=== PATIENT | male | born 1940 | race Caucasian/White ===

== ENCOUNTER 2018-04-20 01:25 | Inpatient (IN) ==
[2018-04-20] MEDS ORDERED: Heparin 10,000 UNITS/10 ML Vial (for IV use) IV.PUSH STA (01:51)
--- NOTE | 2018-04-20 01:58 | ED ---
HPI General Chief Complaint: Chest Pain Stated Complaint: Medical Time Seen by Provider: 04/20/18 01:38 Source: patient Mode of arrival: ambulatory Limitations: no limitations History of Present Illness HPI narrative: 78-year-old male came to the emergency room brought by EMS for off-and-on chest pain since 10 PM. Patient describes each episode of pain with a sharp substernal pain radiating to some extent to the left side of the chest and going down both arms. This was associated with diaphoresis the first time. It slowly went away and the second time woke him up from sleep and was the same distribution along with diaphoresis but this time he was also nauseous but could not vomit. He took one Zantac thinking that it could be his reflux. When the pain continued EMS was called. Patient was given 1 sublingual nitro which took the pain down from 10-1. Patient does not have history of coronary artery disease. He has not had any evaluation for coronary artery disease in the past. Vital signs were stable upon arrival. The pain mostly occurs at rest and no aggravating symptoms identified. Related Data Home Medications Medication Instructions Recorded Confirmed allopurinol 200 mg PO DAILY 04/20/18 04/20/18 finasteride 5 mg PO DAILY 04/20/18 04/20/18 timolol-latanoprost(PF) 1 drop OPHTHALMIC (EYE) HS 04/20/18 04/20/18 Allergies Allergy/AdvReac Type Severity Reaction Status Date / Time codeine Allergy Intermediate RASH Verified 04/23/18 19:59 Review of Systems ROS: all other systems reviewed are negative [facility] Medical History Medical History BPH (benign prostatic hyperplasia) (Acute) Gout (Acute) History of kidney cancer (Acute) Surgical History Surgical History History of nephrectomy (Acute) Hx of cataract surgery (Acute) Social History Social History Substance History: No History of Abuse Second Hand Smoke Exposure: No Smoking Status: Former smoker How Often Do You Have a Drink Containing Alcohol: 4 or more times a week Recent Travel in [facility] within the Last 8 Weeks: No Recent Out of Country Travel within the Last 8 Weeks: No Immunization History Tetanus Immunization: <5 Years Exam Narrative Exam Narrative: GENERAL: Awake, alert, anxious, mild distress SKIN: Focused skin assessment warm/dry. HEAD: Atraumatic. Normocephalic. EYES: Pupils equal and round. No scleral icterus. No injection or drainage. ENT: No nasal bleeding or discharge. Mucous membranes pink and moist. NECK: Trachea midline. No JVD. CARDIOVASCULAR: Regular rate and rhythm. No murmur appreciated. RESPIRATORY: No accessory muscle use. Clear to auscultation. Breath sounds equal bilaterally. GASTROINTESTINAL: Abdomen soft, non-tender, nondistended. Hepatic and splenic margins not palpable. MUSCULOSKELETAL: No obvious deformities. No clubbing. No cyanosis. No edema. NEUROLOGICAL: Awake and alert. No obvious cranial nerve deficits. Motor grossly within normal limits. Normal speech. PSYCHIATRIC: Appropriate mood and affect; insight and judgment normal. Course Initial Documented Vital Signs Temperature 98.4 F 04/20/18 01:30 Pulse Rate 58 L 04/20/18 01:30 Blood Pressure 127/72 04/20/18 01:30 Pulse Oximetry 98 04/20/18 01:30 Last Documented Vital Signs Temperature 98.9 F 04/25/18 16:00 Pulse Rate 116 H 04/25/18 19:45 Respiratory Rate 16 04/25/18 19:45 Blood Pressure 128/72 04/25/18 16:00 Pulse Oximetry 92 L 04/25/18 19:45 Critical Care Time Critical Care Time: Yes Total Critical Care Time: 30 Attestation: Aggregate critical care time was 30 minutes. Time to perform other separately billable procedures was not included in the critical care time. My time did not include minutes spent treating any other patients simultaneously or on activities that did not directly contribute to the patient's treatment. The services I provided to this patient were to treat and/or prevent clinically significant deterioration that could result in: ACS, heparin bolus and drip I provided critical care services requiring my management, as noted below: Chart data review, documentation time, medication orders and management, vital sign assessments/reviewing monitor data, ordering and reviewing lab tests, ordering and interpreting/reviewing x-rays and diagnostic studies, care of the patient and discussion of the patient with the admitting physicians. Medical Decision Making MDM Narrative Medical decision making narrative: 1:55 AM the story is very concerning for ACS. Based on the history itself I have started the patient on heparin bolus and drip. I have asked the nurse to repeat EKG if the pain starts to get worse. Patient has been made aware of this fact. He would require admission. Awaiting for blood test results. 2:45 AM blood test results are back and troponin is elevated as expected. Patient will require admission in [facility]. I will discuss the case with the hospitalist. Medical Screen Exam Complete: Yes Emergency Medical Condition: Yes Lab Data Result diagrams: 04/25/18 04:50 04/25/18 04:50 Lab Results 04/20/18 04/20/18 04/20/18 Range/Units 01:50 01:50 01:50 WBC 6.7 (4.0-11.0) th/mm3 RBC 5.22 (4.50-5.90) mil/mm3 Hgb 15.9 (13.0-17.0) gm/dL Hct 46.4 (39.0-51.0) % MCV 88.9 (80.0-100.0) fL MCH 30.4 (27.0-34.0) pg MCHC 34.2 (32.0-36.0) % RDW 14.0 (11.6-17.2) % Plt Count 190 (150-450) th/mm3 MPV 8.3 (7.0-11.0) fL Neut % (Auto) 63.9 (16.0-70.0) % Lymph % (Auto) 24.1 (9.0-44.0) % [place] % (Auto) 9.0 H (0.0-8.0) % Eos % (Auto) 2.3 (0.0-4.0) % Baso % (Auto) 0.7 (0.0-2.0) % Neut # (Auto) 4.3 (1.8-7.7) th/mm3 Lymph # (Auto) 1.6 (1.0-4.8) th/mm3 [place] # (Auto) 0.6 (0.0-0.9) th/mm3 Eos # (Auto) 0.2 (0.0-0.4) th/mm3 Baso # (Auto) 0.0 (0.0-0.2) th/mm3 WBC Differential . Differential Comment Auto diff final PT 10.7 (9.8-11.6) sec INR 1.1 Ratio APTT 25.5 (23.4-31.7) sec Sodium 136 (136-145) meq/L Potassium 4.3 (3.5-5.1) meq/L Chloride 101 (98-107) meq/L Carbon Dioxide 25.3 (21.0-32.0) meq/L Anion Gap 10 (5-15) meq/L BUN 22 H (7-18) mg/dL Creatinine 1.25 (0.60-1.30) mg/dL Estimated GFR 56 L (>89) mL/min POC Glucose (68-110) mg/dl Random Glucose 128 H (74-106) mg/dL Hemoglobin A1c (4.3-6.0) % Calcium 8.6 (8.5-10.1) mg/dL Magnesium (1.5-2.5) mg/dL Total Bilirubin 0.4 (0.2-1.0) mg/dL AST 21 (15-37) U/L ALT 28 (12-78) U/L Alkaline Phosphatase 82 (45-117) U/L Troponin I 0.11 H (0.02-0.05) ng/mL Total Protein 7.9 (6.4-8.2) g/dL Albumin 3.8 (3.4-5.0) g/dL Triglycerides (42-150) mg/dL Cholesterol (120-200) mg/dL LDL Cholesterol, Calc (0-99) mg/dL HDL Cholesterol (40.0-60.0) mg/dL Cholesterol/HDL Ratio Ratio Urine Color (Yellw/Straw) Urine Clarity (Clear) Urine pH (5.0-8.5) Ur Specific [place] (1.002-1.035) Urine Protein (Neg-Trace) mg/dL Urine Glucose (UA) (Negative) mg/dL Urine Ketones (Negative) mg/dL Urine Occult Blood (Negative) Urine Nitrate (Negative) Urine Bilirubin (Negative) Urine Urobilinogen (Less than 2) mg/dL Ur Leukocyte Esterase (Negative) Urine RBC (0-3) /hpf Urine WBC (0-5) /hpf Urine Mucus (Occasional) /lpf Micro UA Comment Ur Microscopic Review Urine Culture Comments Nasal Screen MRSA (PCR) (Negative) Blood Type Antibody Screen MTS Gel Crossmatch Bld Prod Order Comment 04/20/18 04/20/18 04/20/18 Range/Units 04:00 08:54 08:54 WBC (4.0-11.0) th/mm3 RBC (4.50-5.90) mil/mm3 Hgb (13.0-17.0) gm/dL Hct (39.0-51.0) % MCV (80.0-100.0) fL MCH (27.0-34.0) pg MCHC (32.0-36.0) % RDW (11.6-17.2) % Plt Count (150-450) th/mm3 MPV (7.0-11.0) fL Neut % (Auto) (16.0-70.0) % Lymph % (Auto) (9.0-44.0) % [place] % (Auto) (0.0-8.0) % Eos % (Auto) (0.0-4.0) % Baso % (Auto) (0.0-2.0) % Neut # (Auto) (1.8-7.7) th/mm3 Lymph # (Auto) (1.0-4.8) th/mm3 [place] # (Auto) (0.0-0.9) th/mm3 Eos # (Auto) (0.0-0.4) th/mm3 Baso # (Auto) (0.0-0.2) th/mm3 WBC Differential Differential Comment PT (9.8-11.6) sec INR Ratio APTT 52.7 H D (23.4-31.7) sec Sodium (136-145) meq/L Potassium (3.5-5.1) meq/L Chloride (98-107) meq/L Carbon Dioxide (21.0-32.0) meq/L Anion Gap (5-15) meq/L BUN (7-18) mg/dL Creatinine (0.60-1.30) mg/dL Estimated GFR (>89) mL/min POC Glucose (68-110) mg/dl Random Glucose (74-106) mg/dL Hemoglobin A1c (4.3-6.0) % Calcium (8.5-10.1) mg/dL Magnesium (1.5-2.5) mg/dL Total Bilirubin (0.2-1.0) mg/dL AST (15-37) U/L ALT (12-78) U/L Alkaline Phosphatase (45-117) U/L Troponin I 0.67 H* (0.02-0.05) ng/mL Total Protein (6.4-8.2) g/dL Albumin (3.4-5.0) g/dL Triglycerides 117 (42-150) mg/dL Cholesterol 225 H (120-200) mg/dL LDL Cholesterol, Calc 147 H (0-99) mg/dL HDL Cholesterol 55.1 (40.0-60.0) mg/dL Cholesterol/HDL Ratio 4.08 Ratio Urine Color (Yellw/Straw) Urine Clarity (Clear) Urine pH (5.0-8.5) Ur Specific [place] (1.002-1.035) Urine Protein (Neg-Trace) mg/dL Urine Glucose (UA) (Negative) mg/dL Urine Ketones (Negative) mg/dL Urine Occult Blood (Negative) Urine Nitrate (Negative) Urine Bilirubin (Negative) Urine Urobilinogen (Less than 2) mg/dL Ur Leukocyte Esterase (Negative) Urine RBC (0-3) /hpf Urine WBC (0-5) /hpf Urine Mucus (Occasional) /lpf Micro UA Comment Ur Microscopic Review Urine Culture Comments Nasal Screen MRSA (PCR) Not detected (Negative) Blood Type Antibody Screen MTS Gel Crossmatch Bld Prod Order Comment 04/20/18 04/21/18 04/21/18 Range/Units 15:52 05:23 05:23 WBC 6.5 (4.0-11.0) th/mm3 RBC 4.79 (4.50-5.90) mil/mm3 Hgb 14.5 (13.0-17.0) gm/dL Hct 43.8 (39.0-51.0) % MCV 91.5 (80.0-100.0) fL MCH 30.3 (27.0-34.0) pg MCHC 33.1 (32.0-36.0) % RDW 14.4 (11.6-17.2) % Plt Count 166 (150-450) th/mm3 MPV 8.0 (7.0-11.0) fL Neut % (Auto) 50.7 (16.0-70.0) % Lymph % (Auto) 35.7 (9.0-44.0) % [place] % (Auto) 10.6 H (0.0-8.0) % Eos % (Auto) 2.5 (0.0-4.0) % Baso % (Auto) 0.5 (0.0-2.0) % Neut # (Auto) 3.3 (1.8-7.7) th/mm3 Lymph # (Auto) 2.3 (1.0-4.8) th/mm3 [place] # (Auto) 0.7 (0.0-0.9) th/mm3 Eos # (Auto) 0.2 (0.0-0.4) th/mm3 Baso # (Auto) 0.0 (0.0-0.2) th/mm3 WBC Differential . Differential Comment Auto diff final PT (9.8-11.6) sec INR Ratio APTT 45.5 H 50.9 H (23.4-31.7) sec Sodium (136-145) meq/L Potassium (3.5-5.1) meq/L Chloride (98-107) meq/L Carbon Dioxide (21.0-32.0) meq/L Anion Gap (5-15) meq/L BUN (7-18) mg/dL Creatinine (0.60-1.30) mg/dL Estimated GFR (>89) mL/min POC Glucose (68-110) mg/dl Random Glucose (74-106) mg/dL Hemoglobin A1c (4.3-6.0) % Calcium (8.5-10.1) mg/dL Magnesium (1.5-2.5) mg/dL Total Bilirubin (0.2-1.0) mg/dL AST (15-37) U/L ALT (12-78) U/L Alkaline Phosphatase (45-117) U/L Troponin I (0.02-0.05) ng/mL Total Protein (6.4-8.2) g/dL Albumin (3.4-5.0) g/dL Triglycerides (42-150) mg/dL Cholesterol (120-200) mg/dL LDL Cholesterol, Calc (0-99) mg/dL HDL Cholesterol (40.0-60.0) mg/dL Cholesterol/HDL Ratio Ratio Urine Color (Yellw/Straw) Urine Clarity (Clear) Urine pH (5.0-8.5) Ur Specific [place] (1.002-1.035) Urine Protein (Neg-Trace) mg/dL Urine Glucose (UA) (Negative) mg/dL Urine Ketones (Negative) mg/dL Urine Occult Blood (Negative) Urine Nitrate (Negative) Urine Bilirubin (Negative) Urine Urobilinogen (Less than 2) mg/dL Ur Leukocyte Esterase (Negative) Urine RBC (0-3) /hpf Urine WBC (0-5) /hpf Urine Mucus (Occasional) /lpf Micro UA Comment Ur Microscopic Review Urine Culture Comments Nasal Screen MRSA (PCR) (Negative) Blood Type Antibody Screen MTS Gel Crossmatch Bld Prod Order Comment 04/21/18 04/21/18 04/21/18 Range/Units 05:23 14:25 14:40 WBC (4.0-11.0) th/mm3 RBC (4.50-5.90) mil/mm3 Hgb (13.0-17.0) gm/dL Hct (39.0-51.0) % MCV (80.0-100.0) fL MCH (27.0-34.0) pg MCHC (32.0-36.0) % RDW (11.6-17.2) % Plt Count (150-450) th/mm3 MPV (7.0-11.0) fL Neut % (Auto) (16.0-70.0) % Lymph % (Auto) (9.0-44.0) % [place] % (Auto) (0.0-8.0) % Eos % (Auto) (0.0-4.0) % Baso % (Auto) (0.0-2.0) % Neut # (Auto) (1.8-7.7) th/mm3 Lymph # (Auto) (1.0-4.8) th/mm3 [place] # (Auto) (0.0-0.9) th/mm3 Eos # (Auto) (0.0-0.4) th/mm3 Baso # (Auto) (0.0-0.2) th/mm3 WBC Differential Differential Comment PT (9.8-11.6) sec INR Ratio APTT (23.4-31.7) sec Sodium 142 (136-145) meq/L Potassium 4.1 (3.5-5.1) meq/L Chloride 109 H D (98-107) meq/L Carbon Dioxide 24.8 (21.0-32.0) meq/L Anion Gap 8 (5-15) meq/L BUN 18 (7-18) mg/dL Creatinine 1.33 H (0.60-1.30) mg/dL Estimated GFR 52 L (>89) mL/min POC Glucose (68-110) mg/dl Random Glucose 96 (74-106) mg/dL Hemoglobin A1c (4.3-6.0) % Calcium 8.6 (8.5-10.1) mg/dL Magnesium (1.5-2.5) mg/dL Total Bilirubin 0.4 (0.2-1.0) mg/dL AST 18 (15-37) U/L ALT 24 (12-78) U/L Alkaline Phosphatase 63 (45-117) U/L Troponin I (0.02-0.05) ng/mL Total Protein 6.6 D (6.4-8.2) g/dL Albumin 3.2 L D (3.4-5.0) g/dL Triglycerides (42-150) mg/dL Cholesterol (120-200) mg/dL LDL Cholesterol, Calc (0-99) mg/dL HDL Cholesterol (40.0-60.0) mg/dL Cholesterol/HDL Ratio Ratio Urine Color Straw (Yellw/Straw) Urine Clarity Clear (Clear) Urine pH 6.0 (5.0-8.5) Ur Specific [place] 1.011 (1.002-1.035) Urine Protein Negative (Neg-Trace) mg/dL Urine Glucose (UA) Negative (Negative) mg/dL Urine Ketones Negative (Negative) mg/dL Urine Occult Blood Negative (Negative) Urine Nitrate Negative (Negative) Urine Bilirubin Negative (Negative) Urine Urobilinogen Less than 2 (Less than 2) mg/dL Ur Leukocyte Esterase Negative (Negative) Urine RBC Less than 1 (0-3) /hpf Urine WBC Less than 1 (0-5) /hpf Urine Mucus Few H (Occasional) /lpf Micro UA Comment Culture not ind Ur Microscopic Review Not Reportable Urine Culture Comments Culture not ind Nasal Screen MRSA (PCR) Not detected (Negative) Blood Type Antibody Screen MTS Gel Crossmatch Bld Prod Order Comment 04/22/18 04/22/18 04/22/18 Range/Units 05:37 05:37 05:37 WBC 6.3 (4.0-11.0) th/mm3 RBC 4.76 (4.50-5.90) mil/mm3 Hgb 14.6 (13.0-17.0) gm/dL Hct 42.4 (39.0-51.0) % MCV 89.1 (80.0-100.0) fL MCH 30.8 (27.0-34.0) pg MCHC 34.5 (32.0-36.0) % RDW 14.4 (11.6-17.2) % Plt Count 163 (150-450) th/mm3 MPV 8.1 (7.0-11.0) fL Neut % (Auto) (16.0-70.0) % Lymph % (Auto) (9.0-44.0) % [place] % (Auto) (0.0-8.0) % Eos % (Auto) (0.0-4.0) % Baso % (Auto) (0.0-2.0) % Neut # (Auto) (1.8-7.7) th/mm3 Lymph # (Auto) (1.0-4.8) th/mm3 [place] # (Auto) (0.0-0.9) th/mm3 Eos # (Auto) (0.0-0.4) th/mm3 Baso # (Auto) (0.0-0.2) th/mm3 WBC Differential Differential Comment PT (9.8-11.6) sec INR Ratio APTT (23.4-31.7) sec Sodium 139 (136-145) meq/L Potassium 3.8 (3.5-5.1) meq/L Chloride 107 (98-107) meq/L Carbon Dioxide 22.9 (21.0-32.0) meq/L Anion Gap 9 (5-15) meq/L BUN 19 H (7-18) mg/dL Creatinine 1.27 (0.60-1.30) mg/dL Estimated GFR 55 L (>89) mL/min POC Glucose (68-110) mg/dl Random Glucose 92 (74-106) mg/dL Hemoglobin A1c 5.9 (4.3-6.0) % Calcium 8.6 (8.5-10.1) mg/dL Magnesium (1.5-2.5) mg/dL Total Bilirubin (0.2-1.0) mg/dL AST (15-37) U/L ALT (12-78) U/L Alkaline Phosphatase (45-117) U/L Troponin I (0.02-0.05) ng/mL Total Protein (6.4-8.2) g/dL Albumin (3.4-5.0) g/dL Triglycerides (42-150) mg/dL Cholesterol (120-200) mg/dL LDL Cholesterol, Calc (0-99) mg/dL HDL Cholesterol (40.0-60.0) mg/dL Cholesterol/HDL Ratio Ratio Urine Color (Yellw/Straw) Urine Clarity (Clear) Urine pH (5.0-8.5) Ur Specific [place] (1.002-1.035) Urine Protein (Neg-Trace) mg/dL Urine Glucose (UA) (Negative) mg/dL Urine Ketones (Negative) mg/dL Urine Occult Blood (Negative) Urine Nitrate (Negative) Urine Bilirubin (Negative) Urine Urobilinogen (Less than 2) mg/dL Ur Leukocyte Esterase (Negative) Urine RBC (0-3) /hpf Urine WBC (0-5) /hpf Urine Mucus (Occasional) /lpf Micro UA Comment Ur Microscopic Review Urine Culture Comments Nasal Screen MRSA (PCR) (Negative) Blood Type Antibody Screen MTS Gel Crossmatch Bld Prod Order Comment 04/22/18 04/22/18 04/23/18 Range/Units 05:37 06:00 08:28 WBC 5.8 (4.0-11.0) th/mm3 RBC 5.28 (4.50-5.90) mil/mm3 Hgb 16.1 (13.0-17.0) gm/dL Hct 47.9 (39.0-51.0) % MCV 90.7 (80.0-100.0) fL MCH 30.4 (27.0-34.0) pg MCHC 33.5 (32.0-36.0) % RDW 14.5 (11.6-17.2) % Plt Count 186 (150-450) th/mm3 MPV 8.1 (7.0-11.0) fL Neut % (Auto) (16.0-70.0) % Lymph % (Auto) (9.0-44.0) % [place] % (Auto) (0.0-8.0) % Eos % (Auto) (0.0-4.0) % Baso % (Auto) (0.0-2.0) % Neut # (Auto) (1.8-7.7) th/mm3 Lymph # (Auto) (1.0-4.8) th/mm3 [place] # (Auto) (0.0-0.9) th/mm3 Eos # (Auto) (0.0-0.4) th/mm3 Baso # (Auto) (0.0-0.2) th/mm3 WBC Differential Differential Comment PT 10.8 (9.8-11.6) sec INR 1.1 Ratio APTT 25.7 D (23.4-31.7) sec Sodium (136-145) meq/L Potassium (3.5-5.1) meq/L Chloride (98-107) meq/L Carbon Dioxide (21.0-32.0) meq/L Anion Gap (5-15) meq/L BUN (7-18) mg/dL Creatinine (0.60-1.30) mg/dL Estimated GFR (>89) mL/min POC Glucose (68-110) mg/dl Random Glucose (74-106) mg/dL Hemoglobin A1c (4.3-6.0) % Calcium (8.5-10.1) mg/dL Magnesium (1.5-2.5) mg/dL Total Bilirubin (0.2-1.0) mg/dL AST (15-37) U/L ALT (12-78) U/L Alkaline Phosphatase (45-117) U/L Troponin I (0.02-0.05) ng/mL Total Protein (6.4-8.2) g/dL Albumin (3.4-5.0) g/dL Triglycerides (42-150) mg/dL Cholesterol (120-200) mg/dL LDL Cholesterol, Calc (0-99) mg/dL HDL Cholesterol (40.0-60.0) mg/dL Cholesterol/HDL Ratio Ratio Urine Color (Yellw/Straw) Urine Clarity (Clear) Urine pH (5.0-8.5) Ur Specific [place] (1.002-1.035) Urine Protein (Neg-Trace) mg/dL Urine Glucose (UA) (Negative) mg/dL Urine Ketones (Negative) mg/dL Urine Occult Blood (Negative) Urine Nitrate (Negative) Urine Bilirubin (Negative) Urine Urobilinogen (Less than 2) mg/dL Ur Leukocyte Esterase (Negative) Urine RBC (0-3) /hpf Urine WBC (0-5) /hpf Urine Mucus (Occasional) /lpf Micro UA Comment Ur Microscopic Review Urine Culture Comments Nasal Screen MRSA (PCR) (Negative) Blood Type B Positive Antibody Screen Negative MTS Gel Crossmatch See Detail Bld Prod Order Comment 04/23/18 04/23/18 04/23/18 Range/Units 19:16 20:21 21:47 WBC (4.0-11.0) th/mm3 RBC (4.50-5.90) mil/mm3 Hgb (13.0-17.0) gm/dL Hct (39.0-51.0) % MCV (80.0-100.0) fL MCH (27.0-34.0) pg MCHC (32.0-36.0) % RDW (11.6-17.2) % Plt Count (150-450) th/mm3 MPV (7.0-11.0) fL Neut % (Auto) (16.0-70.0) % Lymph % (Auto) (9.0-44.0) % [place] % (Auto) (0.0-8.0) % Eos % (Auto) (0.0-4.0) % Baso % (Auto) (0.0-2.0) % Neut # (Auto) (1.8-7.7) th/mm3 Lymph # (Auto) (1.0-4.8) th/mm3 [place] # (Auto) (0.0-0.9) th/mm3 Eos # (Auto) (0.0-0.4) th/mm3 Baso # (Auto) (0.0-0.2) th/mm3 WBC Differential Differential Comment PT (9.8-11.6) sec INR Ratio APTT (23.4-31.7) sec Sodium (136-145) meq/L Potassium (3.5-5.1) meq/L Chloride (98-107) meq/L Carbon Dioxide (21.0-32.0) meq/L Anion Gap (5-15) meq/L BUN (7-18) mg/dL Creatinine (0.60-1.30) mg/dL Estimated GFR (>89) mL/min POC Glucose 114 H 115 H 89 (68-110) mg/dl Random Glucose (74-106) mg/dL Hemoglobin A1c (4.3-6.0) % Calcium (8.5-10.1) mg/dL Magnesium (1.5-2.5) mg/dL Total Bilirubin (0.2-1.0) mg/dL AST (15-37) U/L ALT (12-78) U/L Alkaline Phosphatase (45-117) U/L Troponin I (0.02-0.05) ng/mL Total Protein (6.4-8.2) g/dL Albumin (3.4-5.0) g/dL Triglycerides (42-150) mg/dL Cholesterol (120-200) mg/dL LDL Cholesterol, Calc (0-99) mg/dL HDL Cholesterol (40.0-60.0) mg/dL Cholesterol/HDL Ratio Ratio Urine Color (Yellw/Straw) Urine Clarity (Clear) Urine pH (5.0-8.5) Ur Specific [place] (1.002-1.035) Urine Protein (Neg-Trace) mg/dL Urine Glucose (UA) (Negative) mg/dL Urine Ketones (Negative) mg/dL Urine Occult Blood (Negative) Urine Nitrate (Negative) Urine Bilirubin (Negative) Urine Urobilinogen (Less than 2) mg/dL Ur Leukocyte Esterase (Negative) Urine RBC (0-3) /hpf Urine WBC (0-5) /hpf Urine Mucus (Occasional) /lpf Micro UA Comment Ur Microscopic Review Urine Culture Comments Nasal Screen MRSA (PCR) (Negative) Blood Type Antibody Screen MTS Gel Crossmatch Bld Prod Order Comment 04/23/18 04/24/18 04/24/18 Range/Units 22:55 00:06 02:06 WBC (4.0-11.0) th/mm3 RBC (4.50-5.90) mil/mm3 Hgb (13.0-17.0) gm/dL Hct (39.0-51.0) % MCV (80.0-100.0) fL MCH (27.0-34.0) pg MCHC (32.0-36.0) % RDW (11.6-17.2) % Plt Count (150-450) th/mm3 MPV (7.0-11.0) fL Neut % (Auto) (16.0-70.0) % Lymph % (Auto) (9.0-44.0) % [place] % (Auto) (0.0-8.0) % Eos % (Auto) (0.0-4.0) % Baso % (Auto) (0.0-2.0) % Neut # (Auto) (1.8-7.7) th/mm3 Lymph # (Auto) (1.0-4.8) th/mm3 [place] # (Auto) (0.0-0.9) th/mm3 Eos # (Auto) (0.0-0.4) th/mm3 Baso # (Auto) (0.0-0.2) th/mm3 WBC Differential Differential Comment PT (9.8-11.6) sec INR Ratio APTT (23.4-31.7) sec Sodium (136-145) meq/L Potassium (3.5-5.1) meq/L Chloride (98-107) meq/L Carbon Dioxide (21.0-32.0) meq/L Anion Gap (5-15) meq/L BUN (7-18) mg/dL Creatinine (0.60-1.30) mg/dL Estimated GFR (>89) mL/min POC Glucose 119 H 111 H 110 (68-110) mg/dl Random Glucose (74-106) mg/dL Hemoglobin A1c (4.3-6.0) % Calcium (8.5-10.1) mg/dL Magnesium (1.5-2.5) mg/dL Total Bilirubin (0.2-1.0) mg/dL AST (15-37) U/L ALT (12-78) U/L Alkaline Phosphatase (45-117) U/L Troponin I (0.02-0.05) ng/mL Total Protein (6.4-8.2) g/dL Albumin (3.4-5.0) g/dL Triglycerides (42-150) mg/dL Cholesterol (120-200) mg/dL LDL Cholesterol, Calc (0-99) mg/dL HDL Cholesterol (40.0-60.0) mg/dL Cholesterol/HDL Ratio Ratio Urine Color (Yellw/Straw) Urine Clarity (Clear) Urine pH (5.0-8.5) Ur Specific [place] (1.002-1.035) Urine Protein (Neg-Trace) mg/dL Urine Glucose (UA) (Negative) mg/dL Urine Ketones (Negative) mg/dL Urine Occult Blood (Negative) Urine Nitrate (Negative) Urine Bilirubin (Negative) Urine Urobilinogen (Less than 2) mg/dL Ur Leukocyte Esterase (Negative) Urine RBC (0-3) /hpf Urine WBC (0-5) /hpf Urine Mucus (Occasional) /lpf Micro UA Comment Ur Microscopic Review Urine Culture Comments Nasal Screen MRSA (PCR) (Negative) Blood Type Antibody Screen MTS Gel Crossmatch Bld Prod Order Comment 04/24/18 04/24/18 04/24/18 Range/Units 04:09 04:09 04:09 WBC 10.0 D (4.0-11.0) th/mm3 RBC 4.59 (4.50-5.90) mil/mm3 Hgb 13.6 D (13.0-17.0) gm/dL Hct 41.4 (39.0-51.0) % MCV 90.2 (80.0-100.0) fL MCH 29.7 (27.0-34.0) pg MCHC 32.9 (32.0-36.0) % RDW 14.4 (11.6-17.2) % Plt Count 159 (150-450) th/mm3 MPV 8.5 (7.0-11.0) fL Neut % (Auto) (16.0-70.0) % Lymph % (Auto) (9.0-44.0) % [place] % (Auto) (0.0-8.0) % Eos % (Auto) (0.0-4.0) % Baso % (Auto) (0.0-2.0) % Neut # (Auto) (1.8-7.7) th/mm3 Lymph # (Auto) (1.0-4.8) th/mm3 [place] # (Auto) (0.0-0.9) th/mm3 Eos # (Auto) (0.0-0.4) th/mm3 Baso # (Auto) (0.0-0.2) th/mm3 WBC Differential Differential Comment PT (9.8-11.6) sec INR Ratio APTT (23.4-31.7) sec Sodium 140 (136-145) meq/L Potassium 4.5 (3.5-5.1) meq/L Chloride 106 (98-107) meq/L Carbon Dioxide 24.8 (21.0-32.0) meq/L Anion Gap 9 (5-15) meq/L BUN 18 (7-18) mg/dL Creatinine 1.17 (0.60-1.30) mg/dL Estimated GFR 60 L (>89) mL/min POC Glucose 105 (68-110) mg/dl Random Glucose 107 H (74-106) mg/dL Hemoglobin A1c (4.3-6.0) % Calcium 8.9 (8.5-10.1) mg/dL Magnesium 2.2 (1.5-2.5) mg/dL Total Bilirubin (0.2-1.0) mg/dL AST (15-37) U/L ALT (12-78) U/L Alkaline Phosphatase (45-117) U/L Troponin I (0.02-0.05) ng/mL Total Protein (6.4-8.2) g/dL Albumin (3.4-5.0) g/dL Triglycerides (42-150) mg/dL Cholesterol (120-200) mg/dL LDL Cholesterol, Calc (0-99) mg/dL HDL Cholesterol (40.0-60.0) mg/dL Cholesterol/HDL Ratio Ratio Urine Color (Yellw/Straw) Urine Clarity (Clear) Urine pH (5.0-8.5) Ur Specific [place] (1.002-1.035) Urine Protein (Neg-Trace) mg/dL Urine Glucose (UA) (Negative) mg/dL Urine Ketones (Negative) mg/dL Urine Occult Blood (Negative) Urine Nitrate (Negative) Urine Bilirubin (Negative) Urine Urobilinogen (Less than 2) mg/dL Ur Leukocyte Esterase (Negative) Urine RBC (0-3) /hpf Urine WBC (0-5) /hpf Urine Mucus (Occasional) /lpf Micro UA Comment Ur Microscopic Review Urine Culture Comments Nasal Screen MRSA (PCR) (Negative) Blood Type Antibody Screen MTS Gel Crossmatch Bld Prod Order Comment 04/24/18 04/24/18 04/24/18 Range/Units 05:49 08:04 10:57 WBC (4.0-11.0) th/mm3 RBC (4.50-5.90) mil/mm3 Hgb (13.0-17.0) gm/dL Hct (39.0-51.0) % MCV (80.0-100.0) fL MCH (27.0-34.0) pg MCHC (32.0-36.0) % RDW (11.6-17.2) % Plt Count (150-450) th/mm3 MPV (7.0-11.0) fL Neut % (Auto) (16.0-70.0) % Lymph % (Auto) (9.0-44.0) % [place] % (Auto) (0.0-8.0) % Eos % (Auto) (0.0-4.0) % Baso % (Auto) (0.0-2.0) % Neut # (Auto) (1.8-7.7) th/mm3 Lymph # (Auto) (1.0-4.8) th/mm3 [place] # (Auto) (0.0-0.9) th/mm3 Eos # (Auto) (0.0-0.4) th/mm3 Baso # (Auto) (0.0-0.2) th/mm3 WBC Differential Differential Comment PT (9.8-11.6) sec INR Ratio APTT (23.4-31.7) sec Sodium (136-145) meq/L Potassium (3.5-5.1) meq/L Chloride (98-107) meq/L Carbon Dioxide (21.0-32.0) meq/L Anion Gap (5-15) meq/L BUN (7-18) mg/dL Creatinine (0.60-1.30) mg/dL Estimated GFR (>89) mL/min POC Glucose 106 107 142 H (68-110) mg/dl Random Glucose (74-106) mg/dL Hemoglobin A1c (4.3-6.0) % Calcium (8.5-10.1) mg/dL Magnesium (1.5-2.5) mg/dL Total Bilirubin (0.2-1.0) mg/dL AST (15-37) U/L ALT (12-78) U/L Alkaline Phosphatase (45-117) U/L Troponin I (0.02-0.05) ng/mL Total Protein (6.4-8.2) g/dL Albumin (3.4-5.0) g/dL Triglycerides (42-150) mg/dL Cholesterol (120-200) mg/dL LDL Cholesterol, Calc (0-99) mg/dL HDL Cholesterol (40.0-60.0) mg/dL Cholesterol/HDL Ratio Ratio Urine Color (Yellw/Straw) Urine Clarity (Clear) Urine pH (5.0-8.5) Ur Specific [place] (1.002-1.035) Urine Protein (Neg-Trace) mg/dL Urine Glucose (UA) (Negative) mg/dL Urine Ketones (Negative) mg/dL Urine Occult Blood (Negative) Urine Nitrate (Negative) Urine Bilirubin (Negative) Urine Urobilinogen (Less than 2) mg/dL Ur Leukocyte Esterase (Negative) Urine RBC (0-3) /hpf Urine WBC (0-5) /hpf Urine Mucus (Occasional) /lpf Micro UA Comment Ur Microscopic Review Urine Culture Comments Nasal Screen MRSA (PCR) (Negative) Blood Type Antibody Screen MTS Gel Crossmatch Bld Prod Order Comment 04/24/18 04/24/18 04/24/18 Range/Units 16:00 19:18 21:41 WBC (4.0-11.0) th/mm3 RBC (4.50-5.90) mil/mm3 Hgb (13.0-17.0) gm/dL Hct (39.0-51.0) % MCV (80.0-100.0) fL MCH (27.0-34.0) pg MCHC (32.0-36.0) % RDW (11.6-17.2) % Plt Count (150-450) th/mm3 MPV (7.0-11.0) fL Neut % (Auto) (16.0-70.0) % Lymph % (Auto) (9.0-44.0) % [place] % (Auto) (0.0-8.0) % Eos % (Auto) (0.0-4.0) % Baso % (Auto) (0.0-2.0) % Neut # (Auto) (1.8-7.7) th/mm3 Lymph # (Auto) (1.0-4.8) th/mm3 [place] # (Auto) (0.0-0.9) th/mm3 Eos # (Auto) (0.0-0.4) th/mm3 Baso # (Auto) (0.0-0.2) th/mm3 WBC Differential Differential Comment PT (9.8-11.6) sec INR Ratio APTT (23.4-31.7) sec Sodium (136-145) meq/L Potassium (3.5-5.1) meq/L Chloride (98-107) meq/L Carbon Dioxide (21.0-32.0) meq/L Anion Gap (5-15) meq/L BUN (7-18) mg/dL Creatinine (0.60-1.30) mg/dL Estimated GFR (>89) mL/min POC Glucose 130 H 153 H 115 H (68-110) mg/dl Random Glucose (74-106) mg/dL Hemoglobin A1c (4.3-6.0) % Calcium (8.5-10.1) mg/dL Magnesium (1.5-2.5) mg/dL Total Bilirubin (0.2-1.0) mg/dL AST (15-37) U/L ALT (12-78) U/L Alkaline Phosphatase (45-117) U/L Troponin I (0.02-0.05) ng/mL Total Protein (6.4-8.2) g/dL Albumin (3.4-5.0) g/dL Triglycerides (42-150) mg/dL Cholesterol (120-200) mg/dL LDL Cholesterol, Calc (0-99) mg/dL HDL Cholesterol (40.0-60.0) mg/dL Cholesterol/HDL Ratio Ratio Urine Color (Yellw/Straw) Urine Clarity (Clear) Urine pH (5.0-8.5) Ur Specific [place] (1.002-1.035) Urine Protein (Neg-Trace) mg/dL Urine Glucose (UA) (Negative) mg/dL Urine Ketones (Negative) mg/dL Urine Occult Blood (Negative) Urine Nitrate (Negative) Urine Bilirubin (Negative) Urine Urobilinogen (Less than 2) mg/dL Ur Leukocyte Esterase (Negative) Urine RBC (0-3) /hpf Urine WBC (0-5) /hpf Urine Mucus (Occasional) /lpf Micro UA Comment Ur Microscopic Review Urine Culture Comments Nasal Screen MRSA (PCR) (Negative) Blood Type Antibody Screen MTS Gel Crossmatch Bld Prod Order Comment 04/25/18 04/25/18 04/25/18 Range/Units 01:19 04:50 04:50 WBC 12.1 H (4.0-11.0) th/mm3 RBC 4.50 (4.50-5.90) mil/mm3 Hgb 13.7 (13.0-17.0) gm/dL Hct 41.2 (39.0-51.0) % MCV 91.4 (80.0-100.0) fL MCH 30.4 (27.0-34.0) pg MCHC 33.3 (32.0-36.0) % RDW 14.6 (11.6-17.2) % Plt Count 164 (150-450) th/mm3 MPV 8.1 (7.0-11.0) fL Neut % (Auto) 75.7 H (16.0-70.0) % Lymph % (Auto) 10.3 (9.0-44.0) % [place] % (Auto) 12.9 H (0.0-8.0) % Eos % (Auto) 0.8 (0.0-4.0) % Baso % (Auto) 0.3 (0.0-2.0) % Neut # (Auto) 9.2 H (1.8-7.7) th/mm3 Lymph # (Auto) 1.3 (1.0-4.8) th/mm3 [place] # (Auto) 1.6 H (0.0-0.9) th/mm3 Eos # (Auto) 0.1 (0.0-0.4) th/mm3 Baso # (Auto) 0.0 (0.0-0.2) th/mm3 WBC Differential . Differential Comment Auto diff final PT (9.8-11.6) sec INR Ratio APTT (23.4-31.7) sec Sodium 134 L (136-145) meq/L Potassium 4.3 (3.5-5.1) meq/L Chloride 100 (98-107) meq/L Carbon Dioxide 24.8 (21.0-32.0) meq/L Anion Gap 9 (5-15) meq/L BUN 20 H (7-18) mg/dL Creatinine 1.54 H (0.60-1.30) mg/dL Estimated GFR 44 L (>89) mL/min POC Glucose 117 H (68-110) mg/dl Random Glucose 127 H (74-106) mg/dL Hemoglobin A1c (4.3-6.0) % Calcium 8.8 (8.5-10.1) mg/dL Magnesium 1.9 (1.5-2.5) mg/dL Total Bilirubin (0.2-1.0) mg/dL AST (15-37) U/L ALT (12-78) U/L Alkaline Phosphatase (45-117) U/L Troponin I (0.02-0.05) ng/mL Total Protein (6.4-8.2) g/dL Albumin (3.4-5.0) g/dL Triglycerides (42-150) mg/dL Cholesterol (120-200) mg/dL LDL Cholesterol, Calc (0-99) mg/dL HDL Cholesterol (40.0-60.0) mg/dL Cholesterol/HDL Ratio Ratio Urine Color (Yellw/Straw) Urine Clarity (Clear) Urine pH (5.0-8.5) Ur Specific [place] (1.002-1.035) Urine Protein (Neg-Trace) mg/dL Urine Glucose (UA) (Negative) mg/dL Urine Ketones (Negative) mg/dL Urine Occult Blood (Negative) Urine Nitrate (Negative) Urine Bilirubin (Negative) Urine Urobilinogen (Less than 2) mg/dL Ur Leukocyte Esterase (Negative) Urine RBC (0-3) /hpf Urine WBC (0-5) /hpf Urine Mucus (Occasional) /lpf Micro UA Comment Ur Microscopic Review Urine Culture Comments Nasal Screen MRSA (PCR) (Negative) Blood Type Antibody Screen MTS Gel Crossmatch Bld Prod Order Comment 04/25/18 04/25/18 04/25/18 Range/Units 04:50 08:25 12:47 WBC (4.0-11.0) th/mm3 RBC (4.50-5.90) mil/mm3 Hgb (13.0-17.0) gm/dL Hct (39.0-51.0) % MCV (80.0-100.0) fL MCH (27.0-34.0) pg MCHC (32.0-36.0) % RDW (11.6-17.2) % Plt Count (150-450) th/mm3 MPV (7.0-11.0) fL Neut % (Auto) (16.0-70.0) % Lymph % (Auto) (9.0-44.0) % [place] % (Auto) (0.0-8.0) % Eos % (Auto) (0.0-4.0) % Baso % (Auto) (0.0-2.0) % Neut # (Auto) (1.8-7.7) th/mm3 Lymph # (Auto) (1.0-4.8) th/mm3 [place] # (Auto) (0.0-0.9) th/mm3 Eos # (Auto) (0.0-0.4) th/mm3 Baso # (Auto) (0.0-0.2) th/mm3 WBC Differential Differential Comment PT (9.8-11.6) sec INR Ratio APTT (23.4-31.7) sec Sodium (136-145) meq/L Potassium (3.5-5.1) meq/L Chloride (98-107) meq/L Carbon Dioxide (21.0-32.0) meq/L Anion Gap (5-15) meq/L BUN (7-18) mg/dL Creatinine (0.60-1.30) mg/dL Estimated GFR (>89) mL/min POC Glucose 122 H 154 H 145 H (68-110) mg/dl Random Glucose (74-106) mg/dL Hemoglobin A1c (4.3-6.0) % Calcium (8.5-10.1) mg/dL Magnesium (1.5-2.5) mg/dL Total Bilirubin (0.2-1.0) mg/dL AST (15-37) U/L ALT (12-78) U/L Alkaline Phosphatase (45-117) U/L Troponin I (0.02-0.05) ng/mL Total Protein (6.4-8.2) g/dL Albumin (3.4-5.0) g/dL Triglycerides (42-150) mg/dL Cholesterol (120-200) mg/dL LDL Cholesterol, Calc (0-99) mg/dL HDL Cholesterol (40.0-60.0) mg/dL Cholesterol/HDL Ratio Ratio Urine Color (Yellw/Straw) Urine Clarity (Clear) Urine pH (5.0-8.5) Ur Specific [place] (1.002-1.035) Urine Protein (Neg-Trace) mg/dL Urine Glucose (UA) (Negative) mg/dL Urine Ketones (Negative) mg/dL Urine Occult Blood (Negative) Urine Nitrate (Negative) Urine Bilirubin (Negative) Urine Urobilinogen (Less than 2) mg/dL Ur Leukocyte Esterase (Negative) Urine RBC (0-3) /hpf Urine WBC (0-5) /hpf Urine Mucus (Occasional) /lpf Micro UA Comment Ur Microscopic Review Urine Culture Comments Nasal Screen MRSA (PCR) (Negative) Blood Type Antibody Screen MTS Gel Crossmatch Bld Prod Order Comment 04/25/18 04/25/18 Range/Units 17:12 21:18 WBC (4.0-11.0) th/mm3 RBC (4.50-5.90) mil/mm3 Hgb (13.0-17.0) gm/dL Hct (39.0-51.0) % MCV (80.0-100.0) fL MCH (27.0-34.0) pg MCHC (32.0-36.0) % RDW (11.6-17.2) % Plt Count (150-450) th/mm3 MPV (7.0-11.0) fL Neut % (Auto) (16.0-70.0) % Lymph % (Auto) (9.0-44.0) % [place] % (Auto) (0.0-8.0) % Eos % (Auto) (0.0-4.0) % Baso % (Auto) (0.0-2.0) % Neut # (Auto) (1.8-7.7) th/mm3 Lymph # (Auto) (1.0-4.8) th/mm3 [place] # (Auto) (0.0-0.9) th/mm3 Eos # (Auto) (0.0-0.4) th/mm3 Baso # (Auto) (0.0-0.2) th/mm3 WBC Differential Differential Comment PT (9.8-11.6) sec INR Ratio APTT (23.4-31.7) sec Sodium (136-145) meq/L Potassium (3.5-5.1) meq/L Chloride (98-107) meq/L Carbon Dioxide (21.0-32.0) meq/L Anion Gap (5-15) meq/L BUN (7-18) mg/dL Creatinine (0.60-1.30) mg/dL Estimated GFR (>89) mL/min POC Glucose 206 H 108 (68-110) mg/dl Random Glucose (74-106) mg/dL Hemoglobin A1c (4.3-6.0) % Calcium (8.5-10.1) mg/dL Magnesium (1.5-2.5) mg/dL Total Bilirubin (0.2-1.0) mg/dL AST (15-37) U/L ALT (12-78) U/L Alkaline Phosphatase (45-117) U/L Troponin I (0.02-0.05) ng/mL Total Protein (6.4-8.2) g/dL Albumin (3.4-5.0) g/dL Triglycerides (42-150) mg/dL Cholesterol (120-200) mg/dL LDL Cholesterol, Calc (0-99) mg/dL HDL Cholesterol (40.0-60.0) mg/dL Cholesterol/HDL Ratio Ratio Urine Color (Yellw/Straw) Urine Clarity (Clear) Urine pH (5.0-8.5) Ur Specific [place] (1.002-1.035) Urine Protein (Neg-Trace) mg/dL Urine Glucose (UA) (Negative) mg/dL Urine Ketones (Negative) mg/dL Urine Occult Blood (Negative) Urine Nitrate (Negative) Urine Bilirubin (Negative) Urine Urobilinogen (Less than 2) mg/dL Ur Leukocyte Esterase (Negative) Urine RBC (0-3) /hpf Urine WBC (0-5) /hpf Urine Mucus (Occasional) /lpf Micro UA Comment Ur Microscopic Review Urine Culture Comments Nasal Screen MRSA (PCR) (Negative) Blood Type Antibody Screen MTS Gel Crossmatch Bld Prod Order Comment Imaging Data Radiologist's impression: Chest X-Ray 04/20/18 01:38 CONCLUSION: Negative examination. Carotid Doppler Study 04/21/18 13:10 CONCLUSION: 1. Right Internal Carotid Artery: Findings indicate <50% stenosis. 2. Left Internal Carotid Artery: Findings indicate <50% stenosis. Lower Extremity Ultrasound 04/21/18 13:10 CONCLUSION: 1. Venous mapping study as described. Venous Doppler Study 04/21/18 13:10 CONCLUSION: 1. The study is negative for bilateral lower extremity deep venous thrombosis. Chest X-Ray 04/23/18 17:38 CONCLUSION: 1. Postoperative median sternotomy and coronary artery bypass graft operation. 2. Mild bibasilar atelectasis. 3. Mediastinal drain, left chest tube, nasogastric tube and endotracheal tube positions as above. No pneumothorax or significant joint effusion. Chest X-Ray 04/24/18 05:00 CONCLUSION: Endotracheal tube and nasogastric tube no longer seen. Persistent mild bilateral atelectasis. Chest X-Ray 04/25/18 00:00 CONCLUSION: There is no significant failure Minimally increasing parenchymal changes left base probably atelectasis. ECG Data Attestation: I personally reviewed and interpreted this ECG as follows: Interpretation: Twelve-lead EKG was reviewed by me. This rhythm, normal axis, anterior lateral T wave inversion and less than [address] of anterior ST elevation. No reciprocal depressions noticed. Heart rate of 60 bpm. Discharge Plan Discharge Disposition Patient Disposition: ED Admit(ED Internal Use Only) Discharge Order Discharge Orders: ED Use Only Admit Order (Routine); Ordered 04/20/18 Ordered By: Angelito Britton Physicians Team ED Provider: Angelito Britton Primary Care Provider: Primary Care Physici,No Attending Provider: Gregory Kirk Other Providers: Ulises Milner Sohit K Status ED Status: Left Department Discharge Information Discharge Date/Time: 04/20/18 04:27
[2018-04-20 02:07] LABS: Baso % (Auto) 0.7 % (0.0-2.0); Eos # (Auto) 0.2 th/mm3 (0.0-0.4); Eos % (Auto) 2.3 % (0.0-4.0); Hematocrit 46.4 % (39.0-51.0); Hemoglobin 15.9 gm/dL (13.0-17.0); Lymph # (Auto) 1.6 th/mm3 (1.0-4.8); Lymph % (Auto) 24.1 % (9.0-44.0); Mean Corpuscular HGB Conc 34.2 % (32.0-36.0); Mean Corpuscular Hemoglobin 30.4 pg (27.0-34.0); Mean Corpuscular Volume 88.9 fL (80.0-100.0); Mean Platelet Volume 8.3 fL (7.0-11.0); Mono # (Auto) 0.6 th/mm3 (0.0-0.9); Neut # (Auto) 4.3 th/mm3 (1.8-7.7); Neut % (Auto) 63.9 % (16.0-70.0); Platelet Count 190 th/mm3 (150-450); Red Blood Count 5.22 mil/mm3 (4.50-5.90); White Blood Count 6.7 th/mm3 (4.0-11.0)
[2018-04-20 02:15] LABS: Activated Partial Thrombo Time 25.5 sec (23.4-31.7); INR 1.1 Ratio; Prothrombin Time 10.7 sec (9.8-11.6)
[2018-04-20 02:20] LABS: Alanine Aminotransferase 28 U/L (12-78); Albumin 3.8 g/dL (3.4-5.0); Anion Gap 10 meq/L (5-15); Aspartate Aminotransferase 21 U/L (15-37); Blood Urea Nitrogen 22 mg/dL (7-18); Calcium 8.6 mg/dL (8.5-10.1); Carbon Dioxide 25.3 meq/L (21.0-32.0); Chloride 101 meq/L (98-107); Glomerular Filtration Rate 56 mL/min (>89); Glucose,Random 128 mg/dL (74-106); Potassium 4.3 meq/L (3.5-5.1); Sodium 136 meq/L (136-145)
[2018-04-20] MEDS: Heparin Drip 25,000 UNIT/250 ML BAG IV.CONT PRN (02:21)
[2018-04-20 02:23] LABS: Alkaline Phosphatase 82 U/L (45-117); Total Protein 7.9 g/dL (6.4-8.2); Troponin I 0.11 ng/mL (0.02-0.05)
--- NOTE | 2018-04-20 02:45 | XR ---
EXAM DATE: 04/20/2018 2:04 AM EST AGE/SEX: 78 years / Male INDICATIONS: Chest pain that woke him up while sleeping today. CLINICAL DATA: This is the patient's initial encounter. Patient reports that signs and symptoms have been present for 1 day and indicates a pain score of 8/10. MEDICAL/SURGICAL HISTORY: . Kidney cancer. BPH. Gout. . Nephrectomy. Cataract surgery. COMPARISON: . FINDINGS: A single AP view of the chest demonstrates the lungs to be symmetrically aerated without evidence of mass, infiltrate or effusion. The cardiomediastinal contours are unremarkable. Osseous structures a re intact. CONCLUSION: Negative examination. Electronically signed by: Moses Mcgregor MD 04/20/2018 2:44 AM EST
[2018-04-20] MEDS ORDERED: Morphine Sulfate Inj 2 MG/ML Vial IV.PUSH PRN (03:15)
[2018-04-20] MEDS ORDERED: Bisacodyl 10 MG Supp RECTAL PRN (03:16)
--- NOTE | 2018-04-20 04:10 | P.HPIM ---
History of Present Illness Primary Care Physician: No Primary Care Physician History of Present Illness: This is a 78-year-old male with a PMH of Renal Cell CA s/p Nephrectomy, BPH and Gout who was brought to the ER by EMS for c/o chest pain starting earlier tonight. Pt and kirt from [place], pt is active at baseline, plays Tennis regularly with no complaints, however has noted increased SOB while playing Tennis over the last 1wk, symptoms improve after rest. Tonight, had acute onset of chest pain, constant, sharp, 10/10, symptoms woke him from sleep. S/p NTG by EMS w/ significant improvement, currently chest pain free. On arrival, BP 127/72, HR 58, O2 sat 98% on 2L NC, Afebrile. CBC unremarkable. INR 1.1. BUN 22, GFR 56. Troponin 0.11. CXR with no acute findings. Currently on Heparin gtt. - Diagnosis (1) NSTEMI (non-ST elevated myocardial infarction) (2) Dehydration Inpatient Certification: I certify that the inpatient services were ordered in accordance with Medicare regulations governing the order. This includes certification that hospital inpatient services are reasonable and necessary and in the case of services not specified as inpatient-only under 42 CFR 419.22(n), that they are appropriately provided as inpatient services in accordance to with the 2-midnight benchmark under 43 CFR 412.3(e) Estimated Total Length of Stay (Days): 2 Plans for Post Hospital Care: Not yet determined Review of Systems PAST FAMILY HISTORY: Reviewed. No h/o DM or CAD All other systems reviewed negative except as stated in HPI PMFSH - History History Provided By: Patient - Medical History Medical History: Medical History (Last Reviewed 04/20/18 @ 01:55 by Angelito Britton MD) BPH (benign prostatic hyperplasia) Gout History of kidney cancer - Surgical History Surgical History: Surgical History (Last Reviewed 04/20/18 @ 01:55 by Angelito Britton MD) History of nephrectomy Hx of cataract surgery - Tobacco History Second Hand Smoke Exposure: No Smoking Status: Never smoker - Alcohol History How Often Do You Have a Drink Containing Alcohol: 2 to 3 times a week - Substance Use History Substance History: No History of Abuse - Travel History Recent Travel in the [place] Within the Last 8 Weeks: No Recent Travel Out of the Country Within the Last 8 Weeks: No - Immunization History Tetanus Immunization: <5 Years Medications and Allergies Active Medications: Active Medications Al Hydroxide/Mg Hydroxide (Milk Of Magnesia Liq) 30 ml PO Q12H PRN PRN Reason: Mild Constipation Bisacodyl (Dulcolax Supp) 10 mg RECTAL DAILY PRN PRN Reason: SEVERE CONSITIPATION Finasteride (Proscar) 5 mg PO DAILY [facility] Heparin Sodium/Dextrose (Heparin/D5w 25,000 U/250 Ml) 25,000 unit in 250 mls @ 0 mls/hr IV.CONT TITRATE PRN; Protocol PRN Reason: Per Protocol Last Admin: 04/20/18 02:21 Dose: 900 units/hr, 9 mls/hr Sodium Chloride (Ns Inj) 1,000 mls @ 100 mls/hr IV.CONT .Q10H TRAY Lactulose (Lactulose Liq) 30 ml PO DAILY PRN PRN Reason: SEVERE CONSITIPATION Latanoprost (Xalatan 0.005% Opth Drops) 1 drop EACH EYE HS [facility] Metoprolol Tartrate (Lopressor) 25 mg PO BID [facility] Morphine Sulfate (Morphine Inj) 2 mg IV.PUSH Q4H PRN PRN Reason: PAIN 6-10 Nitroglycerin (Nitro-Bid 2% Oint) 0.5 inch TOPICAL Q6HR PRN PRN Reason: CHEST PAIN Ondansetron HCl (Zofran Inj) 4 mg IV.PUSH Q6H PRN PRN Reason: NAUSEA OR VOMITING Pravastatin Sodium (Pravachol) 40 mg PO DAILY [facility] Senna/Docusate Sodium (Shala-Colace) 1 tab PO BID [facility] Sennosides (Senokot) 17.2 mg PO Q12H PRN PRN Reason: Moderate Constipation Sodium Chloride (Ns Flush) 2 ml IV.FLUSH UNSCH PRN PRN Reason: FLUSH AFTER USING IV ACCESS Sodium Chloride (Ns Flush) 2 ml IV.FLUSH BID TRAY Sodium Chloride (Ns Flush) 2 ml IV.FLUSH PRN PRN PRN Reason: FLUSH AFTER USING IV ACCESS Timolol Maleate (Timoptic 0.5% Drops) 1 drops EACH EYE HS [facility] Allergies Allergy/AdvReac Type Severity Reaction Status Date / Time acetaminophen Allergy Intermediate RASH Unverified 12/26/16 01:49 codeine Allergy Intermediate RASH Unverified 12/26/16 01:49 aspirin AdvReac Urinary Verified 04/20/18 01:36 Freq (Inc/Dec) Home Medications Medication Instructions Recorded Confirmed Type allopurinol 200 mg PO DAILY 04/20/18 04/20/18 History finasteride 5 mg PO DAILY 04/20/18 04/20/18 History timolol-latanoprost(PF) 1 drop OPHTHALMIC (EYE) HS 04/20/18 04/20/18 History Exam Vital signs: Vital Signs 04/20/18 01:30 04/20/18 01:38 04/20/18 02:01 Temperature 98.4 F Pulse Rate 58 L 56 L Blood Pressure 127/72 Pulse Oximetry 98 97 96 Intake & Output 04/19/18 04/19/18 04/20/18 06:59 18:59 06:59 Weight 74.843 kg Narrative: PE: GENERAL: Extremely pleasant elderly male in no acute distress. at bedside. SKIN: Focused skin assessment warm and dry. HEENT: PERRLA, EOMI. No scleral icterus or conjunctival pallor. No lid lag or facial droop. CARDIOVASCULAR: Regular rate and rhythm. No obvious murmurs to auscultation. No chest tenderness to palpation. RESPIRATORY: No obvious rhonchi or wheezing. Clear to auscultation. Breath sounds equal bilaterally. GASTROINTESTINAL: Abdomen soft, non-tender, nondistended. BS normal. MUSCULOSKELETAL: Extremities without clubbing, cyanosis, or edema. No obvious deformities. NEUROLOGICAL: Awake, alert and oriented x4. No focal neurologic deficits. Moving both upper and lower extremities spontaneously. PSYCHIATRIC: Appropriate mood and affect. Insight and judgment normal. Results - Labs CBC & Chem 7: 04/20/18 01:50 04/20/18 01:50 Labs: Short CBC 04/20/18 Range/Units 01:50 WBC 6.7 (4.0-11.0) th/mm3 Hgb 15.9 (13.0-17.0) gm/dL Hct 46.4 (39.0-51.0) % Plt Count 190 (150-450) th/mm3 [facility] 04/20/18 01:50 Sodium 136 Potassium 4.3 Chloride 101 Carbon Dioxide 25.3 BUN 22 H Creatinine 1.25 Calcium 8.6 Cardiac Enzymes 04/20/18 Range/Units 01:50 Troponin I 0.11 H (0.02-0.05) ng/mL Liver Function 04/20/18 Range/Units 01:50 Total Bilirubin 0.4 (0.2-1.0) mg/dL AST 21 (15-37) U/L ALT 28 (12-78) U/L Alkaline Phosphatase 82 (45-117) U/L Albumin 3.8 (3.4-5.0) g/dL - Imaging Impressions Chest X-Ray 04/20/18 01:38 CONCLUSION: Negative examination. Caprini VTE Risk Assessment Caprini VTE Risk Assessment: No/Low Risk (score <= 1) Caprini Risk Assessment Model: Point Value = 1 Point Value = 2 Point Value = 3 Point Value = 5 Age 41-60 Minor surgery BMI > 25 kg/m2 Swollen legs Varicose veins or History of unexplained or recurrent spontaneous Oral contraceptives or hormone replacement Sepsis (< 1 month) Serious lung disease, including pneumonia (< 1 month) Abnormal pulmonary function Acute myocardial infarction Congestive heart failure (< 1 month) History of inflammatory bowel disease Medical patient at bed rest Age 61-74 Arthroscopic surgery Major open surgery (> 45 min) Laparoscopic surgery (> 45 min) Malignancy Confined to bed (> 72 hours) Immobilizing plaster cast Central venous access Age >= 75 History of VTE Family history of VTE Factor V Leiden Prothrombin 50570H Lupus anticoagulant Anticardiolipin antibodies Elevated serum homocysteine Heparin-induced thrombocytopenia Other congenital or acquired thrombophilia Stroke (< 1 month) Elective arthroplasty Hip, pelvis, or leg fracture Acute spinal cord injury (< 1 month) Prophylaxis Regimen: Total Risk Factor Score Risk Level Prophylaxis Regimen 0-1 Low Early ambulation 2 Moderate Order ONE of the following: *Sequential Compression Device (SCD) *Heparin 5000 units SQ BID 3-4 Higher Order ONE of the following medications: *Heparin 5000 units SQ TID *Enoxaparin/Lovenox 40 mg SQ daily (WT < 150 kg, CrCl > 30 mL/min) *Enoxaparin/Lovenox 30 mg SQ daily (WT < 150 kg, CrCl > 10-29 mL/min) *Enoxaparin/Lovenox 30 mg SQ BID (WT < 150 kg, CrCl > 30 mL/min) AND/OR *Sequential Compression Device (SCD) 5 or more Highest Order ONE of the following medications: *Heparin 5000 units SQ TID (Preferred with Epidurals) *Enoxaparin/Lovenox 40 mg SQ daily (WT < 150 kg, CrCl > 30 mL/min) *Enoxaparin/Lovenox 30 mg SQ daily (WT < 150 kg, CrCl > 10-29 mL/min) *Enoxaparin/Lovenox 30 mg SQ BID (WT < 150 kg, CrCl > 30 mL/min) AND *Sequential Compression Device (SCD) Assessment and Plan - Assessment (1) NSTEMI (non-ST elevated myocardial infarction) Code(s): I21.4 - Non-ST elevation (NSTEMI) myocardial infarction Status: Acute (2) Dehydration Code(s): E86.0 - Dehydration Status: Acute - Plan A/P: 1. NSTEMI: acute onset of chest pain, recent episodes of SOB w/ exertion, trop 0.11, EKG w/ no acute ischemia. Currently on Heparin gtt, admit to [facility], telemetry, check serial cardiac enzymes for trend, Consult Cardiology for further eval/intervention. No ASA due to ALLERGY, no B-gianna due to bradycardia. Check lipid profile. NTG/Morphine prn. 2. Dehydration: BUN 22, GFR 56, no previous labs for comparison, creatinine 1.25, h/o Nephrectomy for renal cell ca, monitor I/O, IVF for hydration, monitor renal function closely. 3. DVT Prophylaxis: Heparin gtt 4. Social work for d/c planning as needed. 5. Case discussed w/ ER physician at length, labs/records/imaging reviewed by me
[2018-04-20] MEDS: Sod Chloride 0.9% Inj 1,000 ML IV.CONT SCH ×2 (05:46→17:34)
--- NOTE | 2018-04-20 07:31 | P.PNIM ---
Subjective Interval history: f/u; NSTEMI in no acute distress. has mild chest discomfort but says that he could get some sleep last night. no other complaints. Physical Exam Vital signs: Vital Signs 04/20/18 01:30 04/20/18 01:38 04/20/18 02:01 Temperature 98.4 F Pulse Rate 58 L 56 L Respiratory Rate Blood Pressure 127/72 Pulse Oximetry 98 97 96 04/20/18 04:09 04/20/18 04:10 04/20/18 05:00 Temperature Pulse Rate 64 67 56 L Respiratory Rate 18 19 21 Blood Pressure 173/85 H Pulse Oximetry 92 L 04/20/18 05:47 04/20/18 06:00 Temperature Pulse Rate 64 59 L Respiratory Rate 28 H 18 Blood Pressure 131/65 123/62 Pulse Oximetry 97 95 Intake & Output 04/19/18 04/20/18 04/20/18 18:59 06:59 18:59 Output Total 600 / 600 Balance -600 / -600 Weight 74.5 kg Output: Urine 600 / 600 Other: Weight On Admission 74.5 kg - Constitutional no acute distress - Routine Respiratory Exam Present: CTA bilaterally - Routine Cardiovascular Exam Present: RRR - Routine Abdominal Exam Present: soft - Routine Extremities Exam Comments: no pedal edema. - Routine Neurological Exam Present: alert, oriented X3 Results - Labs CBC & Chem 7: 04/20/18 01:50 04/20/18 01:50 Laboratory Results - last 24 hr 04/20/18 04/20/18 04/20/18 01:50 01:50 01:50 WBC 6.7 RBC 5.22 Hgb 15.9 Hct 46.4 MCV 88.9 MCH 30.4 MCHC 34.2 RDW 14.0 Plt Count 190 MPV 8.3 Neut % (Auto) 63.9 Lymph % (Auto) 24.1 [place] % (Auto) 9.0 H Eos % (Auto) 2.3 Baso % (Auto) 0.7 Neut # (Auto) 4.3 Lymph # (Auto) 1.6 [place] # (Auto) 0.6 Eos # (Auto) 0.2 Baso # (Auto) 0.0 WBC Differential . Differential Comment Auto diff final PT 10.7 INR 1.1 APTT 25.5 Sodium 136 Potassium 4.3 Chloride 101 Carbon Dioxide 25.3 Anion Gap 10 BUN 22 H Creatinine 1.25 Estimated GFR 56 L Random Glucose 128 H Calcium 8.6 Total Bilirubin 0.4 AST 21 ALT 28 Alkaline Phosphatase 82 Troponin I 0.11 H Total Protein 7.9 Albumin 3.8 Nasal Screen MRSA (PCR) 04/20/18 04:00 WBC RBC Hgb Hct MCV MCH MCHC RDW Plt Count MPV Neut % (Auto) Lymph % (Auto) [place] % (Auto) Eos % (Auto) Baso % (Auto) Neut # (Auto) Lymph # (Auto) [place] # (Auto) Eos # (Auto) Baso # (Auto) WBC Differential Differential Comment PT INR APTT Sodium Potassium Chloride Carbon Dioxide Anion Gap BUN Creatinine Estimated GFR Random Glucose Calcium Total Bilirubin AST ALT Alkaline Phosphatase Troponin I Total Protein Albumin Nasal Screen MRSA (PCR) Not detected - Imaging Impressions Chest X-Ray 04/20/18 01:38 CONCLUSION: Negative examination. Assessment and Plan - Assessment (1) NSTEMI (non-ST elevated myocardial infarction) Code(s): I21.4 - Non-ST elevation (NSTEMI) myocardial infarction Status: Acute (2) Dehydration Code(s): E86.0 - Dehydration Status: Acute - Plan 1. NSTEMI: check serial cardiac enzymes for trend, Consulted Cardiology for further eval/intervention. No ASA due to ALLERGY, on gianna and statin. 2. Dehydration: BUN 22, GFR 56, no previous labs for comparison, creatinine 1.25, h/o Nephrectomy for renal cell ca, monitor I/O, IVF for hydration, monitor renal function closely. 3. DVT Prophylaxis: Heparin gtt Discharge Planning: home; pending cardiac w/u.
[2018-04-20 09:33] LABS: Chol/HDL Ratio 4.08 Ratio; HDL Cholesterol 55.1 mg/dL (40.0-60.0)
[2018-04-20] MEDS: Finasteride 5 MG Tablet PO SCH (09:34)
[2018-04-20] MEDS: Senna/Docusate Sodium 8.6/50 MG Tablet PO SCH ×2 (09:34→20:21)
[2018-04-20] MEDS: Metoprolol Tartrate 25 MG Tablet PO SCH ×2 (09:34→20:20)
[2018-04-20 09:38] LABS: Troponin I 0.67 ng/mL (0.02-0.05)
--- NOTE | 2018-04-20 09:55 | ECG ---
Date Performed: 04/20/2018 Time Performed: 01:47:25 PTAGE: 78 years EKG: SINUS BRADYCARDIA ST DEVIATION AND MODERATE T-WAVE ABNORMALITY, CONSIDER ANTEROLATERAL ISCH EMIA ABNORMAL ECG Since the PREVIOUS TRACING , no significant change noted PREVIOUS TRACIN04/20/2018 01.33 DOCTOR: Ad Valentine Interpretating Date/Time 04/20/2018 09:55:09
--- NOTE | 2018-04-20 09:56 | ECG ---
Date Performed: 04/20/2018 Time Performed: 02:52:12 PTAGE: 78 years EKG: SINUS BRADYCARDIA WITH OCCASIONAL VENTRICULAR PREMATURE COMPLEXES ST DEVIATION AND MODERATE T-WAVE ABNORMALITY, CONSIDER ANTEROLATERAL ISCHEMIA ABNORMAL ECG Since the PREVIOUS TRACING , no significant change noted PREVIOUS TRACIN04/20/2018 01.47 DOCTOR: Ad Valentine Interpretating Date/Time 04/20/2018 09:55:24
--- NOTE | 2018-04-20 10:33 | ECG ---
Date Performed: 04/20/2018 Time Performed: 01:33:54 PTAGE: 78 years EKG: NORMAL Sinus rhythm ST DEVIATION AND MODERATE T-WAVE ABNORMALITY, CONSIDER ANTEROLATERAL ISCHEMIA ABNORMAL ECG Compared to PREVIOUS TRACING , new anterior T-wave abnormality, suggesting anterior ischemia. Alterna tively, changes could be from LVH. Clinical correlation strongly recommended. PREVIOUS TRACIN 017 08.03.16 DOCTOR: Ad Valentine Interpretating Date/Time 04/20/2018 10:32:10
--- NOTE | 2018-04-20 11:28 | P.CONCA ---
History of Present Illness Primary Care Provider: No Primary Care Physician History of Present Illness: 78-year-old male with gout, BPH, s/p nephrectomy who presented for chest pain. The patient is normally very active and plays tennis 3 times a week. He played tennis 3 times last week and did not notice any chest pain or shortness of breath. Last night he was awoken from sleep with sharp midsternal chest discomfort that lasted approximately 1 hour before resolving. Patient states he went back to bed and about 30 minutes later the sharp chest discomfort returned and was more severe and radiating down both arms so he called 911. He reports the chest discomfort was relieved with nitroglycerin and has not recurred overnight. Troponin 0.11->0.67. EKG shows NSR, no ST elevation or depression, and no arrhythmias. No significant T-wave inversions. Shows NSR with T wave inversions [id number]. Asymptomatic currently. Review of Systems All other systems reviewed negative except as stated in HPI [facility] - History History Provided By: Patient, Medical Record - Medical History Medical History: Medical History (Last Reviewed 04/20/18 @ 11:24 by CARO Perez) BPH (benign prostatic hyperplasia) Gout History of kidney cancer - Surgical History Surgical History: Surgical History (Last Reviewed 04/20/18 @ 11:24 by CARO Perez) History of nephrectomy Hx of cataract surgery - Tobacco History Second Hand Smoke Exposure: No Smoking Status: Former smoker - Alcohol History How Often Do You Have a Drink Containing Alcohol: 4 or more times a week - Substance Use History Substance History: No History of Abuse - Travel History Recent Travel in the [place] Within the Last 8 Weeks: No Recent Travel Out of the Country Within the Last 8 Weeks: No - Immunization History Tetanus Immunization: <5 Years Medications and Allergies Active Medications: Active Medications Al Hydroxide/Mg Hydroxide (Milk Of Magngennaro Liq) 30 ml PO Q12H PRN PRN Reason: Mild Constipation Aspirin (Ecotrin) 81 mg PO DAILY [facility] Atorvastatin Calcium (Lipitor) 40 mg PO HS [facility] Bisacodyl (Dulcolax Supp) 10 mg RECTAL DAILY PRN PRN Reason: SEVERE CONSITIPATION Chlorhexidine Gluconate (Chlorhexidine 2% Cloth) 3 pack TOPICAL DAILY@0400 [facility] Stop: 04/26/18 03:59 Chlorhexidine Gluconate (Chlorhexidine 2% Cloth) 3 pack TOPICAL DAILY@0400 PRN PRN Reason: Extra cloth needed Stop: 04/26/18 03:59 Finasteride (Proscar) 5 mg PO DAILY [facility] Last Admin: 04/20/18 09:34 Dose: 5 mg Heparin Sodium/Dextrose (Heparin/D5w 25,000 U/250 Ml) 25,000 unit in 250 mls @ 0 mls/hr IV.CONT TITRATE PRN; Protocol PRN Reason: Per Protocol Last Titration: 04/20/18 10:16 Dose: 900 units/hr, 9 mls/hr Sodium Chloride (Ns Inj) 1,000 mls @ 100 mls/hr IV.CONT .Q10H [facility] Last Admin: 04/20/18 05:46 Dose: 100 mls/hr Lactulose (Lactulose Liq) 30 ml PO DAILY PRN PRN Reason: SEVERE CONSITIPATION Latanoprost (Xalatan 0.005% Opth Drops) 1 drop EACH EYE [facility] Metoprolol Tartrate (Lopressor) 25 mg PO BID [facility] Last Admin: 04/20/18 09:34 Dose: 25 mg Morphine Sulfate (Morphine Inj) 2 mg IV.PUSH Q4H PRN PRN Reason: PAIN 6-10 Nitroglycerin (Nitro-Bid 2% Oint) 0.5 inch TOPICAL Q6HR PRN PRN Reason: CHEST PAIN Ondansetron HCl (Zofran Inj) 4 mg IV.PUSH Q6H PRN PRN Reason: NAUSEA OR VOMITING Senna/Docusate Sodium (Shala-Colace) 1 tab PO BID [facility] Last Admin: 04/20/18 09:34 Dose: Not Given Sennosides (Senokot) 17.2 mg PO Q12H PRN PRN Reason: Moderate Constipation Sodium Chloride (Ns Flush) 2 ml IV.FLUSH BID [facility] Last Admin: 04/20/18 09:34 Dose: 2 ml Sodium Chloride (Ns Flush) 2 ml IV.FLUSH PRN PRN PRN Reason: FLUSH AFTER USING IV ACCESS Timolol Maleate (Timoptic 0.5% Drops) 1 drops EACH EYE [facility] Allergies Allergy/AdvReac Type Severity Reaction Status Date / Time acetaminophen Allergy Intermediate RASH Unverified 12/26/16 01:49 codeine Allergy Intermediate RASH Unverified 12/26/16 01:49 aspirin AdvReac Urinary Verified 04/20/18 01:36 Freq (Inc/Dec) Home Medications Medication Instructions Recorded Confirmed Type allopurinol 200 mg PO DAILY 04/20/18 04/20/18 History finasteride 5 mg PO DAILY 04/20/18 04/20/18 History timolol-latanoprost(PF) 1 drop OPHTHALMIC (EYE) HS 04/20/18 04/20/18 History Exam Vital signs: Vital Signs 04/20/18 01:30 04/20/18 01:38 04/20/18 02:01 Temperature 98.4 F Pulse Rate 58 L 56 L Respiratory Rate Blood Pressure 127/72 Pulse Oximetry 98 97 96 04/20/18 04:09 04/20/18 04:10 04/20/18 05:00 Temperature Pulse Rate 64 67 56 L Respiratory Rate 18 19 21 Blood Pressure 173/85 H Pulse Oximetry 92 L 04/20/18 05:47 04/20/18 06:00 04/20/18 08:00 Temperature Pulse Rate 64 59 L Respiratory Rate 28 H 18 Blood Pressure 131/65 123/62 Pulse Oximetry 97 95 97 04/20/18 09:00 Temperature Pulse Rate 54 L Respiratory Rate Blood Pressure Pulse Oximetry Intake & Output 04/19/18 04/20/18 04/20/18 18:59 06:59 18:59 Output Total 600 / 600 Balance -600 / -600 Weight 164 lb 3.91 oz Output: Urine 600 / 600 Other: Date of Last Bowel Movement 04/19/18 Weight On Admission 164 lb 3.91 oz Narrative: GENERAL: Well-developed well-nourished. In no acute distress. NECK: No carotid bruits. No JVD. CARDIOVASCULAR: Regular rate and rhythm. No murmur appreciated. RESPIRATORY: No accessory muscle use. Clear to auscultation. Breath sounds equal bilaterally. MUSCULOSKELETAL: No clubbing or cyanosis. No edema. NEUROLOGICAL: Awake and alert. Normal speech. Results 04/20/18 01:50 04/20/18 01:50 Cardiac Enzymes 04/20/18 04/20/18 Range/Units 01:50 08:54 AST 21 (15-37) U/L Troponin I 0.11 H 0.67 H* (0.02-0.05) ng/mL Coagulation 04/20/18 04/20/18 Range/Units 01:50 08:54 PT 10.7 (9.8-11.6) sec APTT 25.5 52.7 H D (23.4-31.7) sec Lipids 04/20/18 Range/Units 08:54 Triglycerides 117 (42-150) mg/dL Cholesterol 225 H (120-200) mg/dL HDL Cholesterol 55.1 (40.0-60.0) mg/dL Cholesterol/HDL Ratio 4.08 Ratio CBC 04/20/18 Range/Units 01:50 WBC 6.7 (4.0-11.0) th/mm3 RBC 5.22 (4.50-5.90) mil/mm3 Hgb 15.9 (13.0-17.0) gm/dL Hct 46.4 (39.0-51.0) % Plt Count 190 (150-450) th/mm3 Neut # (Auto) 4.3 (1.8-7.7) th/mm3 Lymph # (Auto) 1.6 (1.0-4.8) th/mm3 [place] # (Auto) 0.6 (0.0-0.9) th/mm3 Eos # (Auto) 0.2 (0.0-0.4) th/mm3 Baso # (Auto) 0.0 (0.0-0.2) th/mm3 Comprehensive Metabolic Panel 04/20/18 Range/Units 01:50 Sodium 136 (136-145) meq/L Potassium 4.3 (3.5-5.1) meq/L Chloride 101 (98-107) meq/L Carbon Dioxide 25.3 (21.0-32.0) meq/L BUN 22 H (7-18) mg/dL Creatinine 1.25 (0.60-1.30) mg/dL Calcium 8.6 (8.5-10.1) mg/dL AST 21 (15-37) U/L ALT 28 (12-78) U/L Alkaline Phosphatase 82 (45-117) U/L Total Protein 7.9 (6.4-8.2) g/dL Albumin 3.8 (3.4-5.0) g/dL Intake and Output 04/19/18 04/20/18 04/20/18 22:59 06:59 14:59 Output Total 600 / 600 Balance -600 / -600 Output: Urine 600 / 600 Other: Date of Last Bowel Movement 04/19/18 Weight 164 lb 3.91 oz Weight On Admission 164 lb 3.91 oz - Imaging and Cardiology Imaging: Impressions Chest X-Ray 04/20/18 01:38 CONCLUSION: Negative examination. Assessment and Plan - Plan 78-year-old male with gout, BPH, s/p nephrectomy who presented for chest pain NSTEMI: Discussed risk/benefits/alternatives with the patient, n.p.o. for C tomorrow, n.p.o. after midnight. Continue heparin GTT. Start daily aspirin and atorvastatin 40 mg nightly. Has been started on metoprolol 25 mg twice daily. Check echocardiogram. Discussed Condition With: Patient, RN, Dr. Milner
[2018-04-20] MEDS: Timolol 0.5% Drops 5 ML Bottle EACH EYE SCH (22:43)
[2018-04-20] MEDS: Latanoprost 0.005% Opth Drops 2.5 ML Bottle EACH EYE SCH (22:43)
[2018-04-21] MEDS: Sod Chloride 0.9% Inj 1,000 ML IV.CONT SCH ×3 (03:15→20:11)
[2018-04-21] MEDS: Chlorhexidine Gluconate 2% 1 Pack (2 Cloths) TOPICAL SCH (03:15)
[2018-04-21] MEDS ORDERED: Chlorhexidine Gluconate 2% 1 Pack (2 Cloths) TOPICAL PRN (04:00)
[2018-04-21] MEDS ORDERED: Metoprolol Tartrate 25 MG Tablet PO SCH (05:00)
[2018-04-21 06:01] LABS: Baso % (Auto) 0.5 % (0.0-2.0); Eos # (Auto) 0.2 th/mm3 (0.0-0.4); Eos % (Auto) 2.5 % (0.0-4.0); Hematocrit 43.8 % (39.0-51.0); Hemoglobin 14.5 gm/dL (13.0-17.0); Lymph # (Auto) 2.3 th/mm3 (1.0-4.8); Lymph % (Auto) 35.7 % (9.0-44.0); Mean Corpuscular HGB Conc 33.1 % (32.0-36.0); Mean Corpuscular Hemoglobin 30.3 pg (27.0-34.0); Mean Corpuscular Volume 91.5 fL (80.0-100.0); Mono # (Auto) 0.7 th/mm3 (0.0-0.9); Mono % (Auto) 10.6 % (0.0-8.0); Neut # (Auto) 3.3 th/mm3 (1.8-7.7); Neut % (Auto) 50.7 % (16.0-70.0); Platelet Count 166 th/mm3 (150-450); Red Blood Count 4.79 mil/mm3 (4.50-5.90); Red Cell Distribution Width 14.4 % (11.6-17.2); White Blood Count 6.5 th/mm3 (4.0-11.0)
[2018-04-21] MEDS: Heparin Drip 25,000 UNIT/250 ML BAG IV.CONT PRN (06:20)
[2018-04-21 06:31] LABS: Alanine Aminotransferase 24 U/L (12-78); Albumin 3.2 g/dL (3.4-5.0); Alkaline Phosphatase 63 U/L (45-117); Anion Gap 8 meq/L (5-15); Aspartate Aminotransferase 18 U/L (15-37); Blood Urea Nitrogen 18 mg/dL (7-18); Calcium 8.6 mg/dL (8.5-10.1); Carbon Dioxide 24.8 meq/L (21.0-32.0); Chloride 109 meq/L (98-107); Glomerular Filtration Rate 52 mL/min (>89); Glucose,Random 96 mg/dL (74-106); Potassium 4.1 meq/L (3.5-5.1); Sodium 142 meq/L (136-145); Total Protein 6.6 g/dL (6.4-8.2)
--- NOTE | 2018-04-21 07:27 | P.PNIM ---
Subjective Interval history: f/u; NSTEMI resting comfortably with no distress. no chest pain or sob. d/w the RN and no acute issues over night. awaiting cardiac cath. Physical Exam Vital signs: Vital Signs 04/20/18 08:00 04/20/18 09:00 04/20/18 10:00 Temperature Pulse Rate 58 L 60 58 L Respiratory Rate 15 17 15 Blood Pressure 135/63 166/77 H 168/83 H Pulse Oximetry 94 L 96 96 04/20/18 11:00 04/20/18 12:00 04/20/18 13:00 Temperature 98.3 F Pulse Rate 53 L 60 63 Respiratory Rate 15 16 15 Blood Pressure 147/68 H 154/84 H 148/76 H Pulse Oximetry 96 98 98 04/20/18 14:00 04/20/18 15:00 04/20/18 16:00 Temperature 98.1 F Pulse Rate 57 L 72 57 L Respiratory Rate 16 15 17 Blood Pressure 131/68 136/62 Pulse Oximetry 98 96 96 04/20/18 17:00 04/20/18 18:00 04/20/18 19:00 Temperature Pulse Rate 72 66 66 Respiratory Rate 18 17 20 Blood Pressure 146/78 H 164/81 H 128/60 Pulse Oximetry 96 96 94 L 04/20/18 20:00 04/20/18 20:19 04/20/18 21:00 Temperature Pulse Rate 65 64 60 Respiratory Rate 17 30 H 20 Blood Pressure 100/54 L 153/68 H 160/77 H Pulse Oximetry 92 L 98 96 04/20/18 22:00 04/20/18 23:00 04/20/18 23:01 Temperature Pulse Rate 55 L 58 L 58 L Respiratory Rate 23 18 25 H Blood Pressure 164/74 H 116/56 L Pulse Oximetry 04/21/18 00:00 04/21/18 00:06 04/21/18 01:00 Temperature Pulse Rate 57 L 60 57 L Respiratory Rate 19 19 16 Blood Pressure 156/72 H Pulse Oximetry 04/21/18 01:01 04/21/18 02:00 04/21/18 03:00 Temperature Pulse Rate 56 L 62 71 Respiratory Rate 17 21 40 H Blood Pressure 144/66 H 161/74 H 187/114 H Pulse Oximetry 04/21/18 03:09 04/21/18 04:00 04/21/18 04:01 Temperature Pulse Rate 57 L 55 L 53 L Respiratory Rate 24 17 18 Blood Pressure 162/77 H 144/63 H Pulse Oximetry 04/21/18 04:09 04/21/18 05:00 04/21/18 05:01 Temperature Pulse Rate 58 L 57 L Respiratory Rate 17 15 Blood Pressure 120/56 L Pulse Oximetry 95 04/21/18 06:00 Temperature Pulse Rate 56 L Respiratory Rate 18 Blood Pressure 155/72 H Pulse Oximetry Intake & Output 04/20/18 04/21/18 04/21/18 18:59 06:59 18:59 Intake Total 1480 / 1480 1490 / 1490 Output Total 550 / 550 900 / 900 Balance 930 / 930 590 / 590 Weight 75 kg Intake: IV 1000 / 1000 1250 / 1250 Heparin/D5W 25,000 U/250 mL 25, 250 / 250 000 unit In 250 ml @ Per Protocol IV.CONT TITRATE PRN Rx #:[id number] NS Inj 1,000 ML @ 100 mls/hr IV 1000 / 1000 1000 / 1000 .CONT .Q10H [facility] Rx#:[id number] Oral 480 / 480 240 / 240 Output: Urine 550 / 550 900 / 900 Other: Date of Last Bowel Movement 04/19/18 04/19/18 # Bowel Movements 0 - Constitutional no acute distress - Routine Respiratory Exam Present: CTA bilaterally - Routine Cardiovascular Exam Present: RRR - Routine Abdominal Exam Present: soft - Routine Extremities Exam Comments: no pedal edema. - Routine Neurological Exam Present: alert, oriented X3 Results - Labs CBC & Chem 7: 04/21/18 05:23 04/21/18 05:23 Laboratory Results - last 24 hr 04/20/18 04/20/18 04/20/18 08:54 08:54 15:52 WBC RBC Hgb Hct MCV MCH MCHC RDW Plt Count MPV Neut % (Auto) Lymph % (Auto) [place] % (Auto) Eos % (Auto) Baso % (Auto) Neut # (Auto) Lymph # (Auto) [place] # (Auto) Eos # (Auto) Baso # (Auto) WBC Differential Differential Comment APTT 52.7 H D 45.5 H Sodium Potassium Chloride Carbon Dioxide Anion Gap BUN Creatinine Estimated GFR Random Glucose Calcium Total Bilirubin AST ALT Alkaline Phosphatase Troponin I 0.67 H* Total Protein Albumin Triglycerides 117 Cholesterol 225 H LDL Cholesterol, Calc 147 H HDL Cholesterol 55.1 Cholesterol/HDL Ratio 4.08 04/21/18 04/21/18 04/21/18 05:23 05:23 05:23 WBC 6.5 RBC 4.79 Hgb 14.5 Hct 43.8 MCV 91.5 MCH 30.3 MCHC 33.1 RDW 14.4 Plt Count 166 MPV 8.0 Neut % (Auto) 50.7 Lymph % (Auto) 35.7 [place] % (Auto) 10.6 H Eos % (Auto) 2.5 Baso % (Auto) 0.5 Neut # (Auto) 3.3 Lymph # (Auto) 2.3 [place] # (Auto) 0.7 Eos # (Auto) 0.2 Baso # (Auto) 0.0 WBC Differential . Differential Comment Auto diff final APTT 50.9 H Sodium 142 Potassium 4.1 Chloride 109 H D Carbon Dioxide 24.8 Anion Gap 8 BUN 18 Creatinine 1.33 H Estimated GFR 52 L Random Glucose 96 Calcium 8.6 Total Bilirubin 0.4 AST 18 ALT 24 Alkaline Phosphatase 63 Troponin I Total Protein 6.6 D Albumin 3.2 L D Triglycerides Cholesterol LDL Cholesterol, Calc HDL Cholesterol Cholesterol/HDL Ratio Assessment and Plan - Assessment (1) NSTEMI (non-ST elevated myocardial infarction) Code(s): I21.4 - Non-ST elevation (NSTEMI) myocardial infarction Status: Acute (2) Dehydration Code(s): E86.0 - Dehydration Status: Acute - Plan 1. NSTEMI: currently chest pain free. continue aspirin, BB , statin. on Heparin drip. cardiology consult appreciated; awaiting cardiac cath- echo pending. 2. renal insufficiency with unknown duration- continue IV fluid-monitor renal function. 3. DVT Prophylaxis: Heparin gtt Discharge Planning: home; pending cardiac w/u.
[2018-04-21] MEDS ORDERED: Heparin 10,000 UNITS/10 ML Vial (for IV use) ONE (08:05)
[2018-04-21] MEDS ORDERED: Heparin/NS PF Inj 1,000 ML ONE (08:05)
[2018-04-21] MEDS ORDERED: fentaNYL Citrate Inj 100 MCG/2 ML Ampul ONE (08:15)
--- NOTE | 2018-04-21 08:36 | P.PCN ---
Date of procedure: 04/21/18 Pre-op diagnosis: Non-ST elevation myocardial infarction Procedure: garland machine operator: Carlos Milner MD Total amount of contrast administered: 20 cc Procedures performed: 1. Fluoroscopy with interpretation 2. Coronary angiography 3. Left heart catheterization Methods: Risks, benefits, and alternatives were discussed with the patient. Patient understood and consented to the procedure. Patient was brought into the cardiac catheterization lab and placed on the catheterization table. The patient's right wrist was prepped and draped in a sterile fashion. The right wrist was anesthetized with 1% lidocaine. Right wrist was cannulated and a 6 [place] 11 cm sheath was placed without difficulty. 200 mcg of intra-arterial nitroglycerin was administered and 5000 units of intravenous heparin. Coronary angiography: The left main coronary artery was selectively engaged with a 5 Austrian JL 3.5 Raven catheter. The right coronary circulation was selectively engaged with a 5 [place] JR 5 Raven catheter. 1. Left main coronary artery has minor luminal irregularities 2. Left anterior descending coronary artery gives rise to diagonal branch. There is severe stenosis just proximal to the bifurcation of the diagonal branch and mid left anterior descending coronary artery with a stenosis of 95%. 3. Left circumflex coronary artery gives rise to an obtuse marginal branch. There is a bifurcation stenosis involving the first and second obtuse marginal branches, both of which have high-grade disease estimate severity 95%. 4. Right coronary is a dominant vessel giving rise to the posterior descending branch. The right coronary artery has a 75% stenosis in the mid segment. Left heart catheterization: Intra-ventricular hemodynamic pressure 166 over 8 mmHg Conclusions: 1. Severe three-vessel [place] coronary disease 2. Normal left sided filling pressures Plan: We will continue with guideline directed medical therapy. Sheath was removed and Hemoband applied. We will monitor the patient for any postprocedural complications. Given the severity and extent of disease, we will consult cardiothoracic surgery for consideration of bypass surgery.
--- NOTE | 2018-04-21 08:38 | P.PNCA ---
Subjective Interval history: No complaints Medications and Allergies Active Medications: Active Medications Al Hydroxide/Mg Hydroxide (Milk Of Magnesia Liq) 30 ml PO Q12H PRN PRN Reason: Mild Constipation Aspirin (Ecotrin) 81 mg PO DAILY [facility] Atorvastatin Calcium (Lipitor) 40 mg PO [facility] Bisacodyl (Dulcolax Supp) 10 mg RECTAL DAILY PRN PRN Reason: SEVERE CONSITIPATION Chlorhexidine Gluconate (Chlorhexidine 2% Cloth) 3 pack TOPICAL DAILY@0400 [facility] Stop: 04/26/18 03:59 Last Admin: 04/21/18 03:15 Dose: 3 pack Chlorhexidine Gluconate (Chlorhexidine 2% Cloth) 3 pack TOPICAL DAILY@0400 PRN PRN Reason: Extra cloth needed Stop: 04/26/18 03:59 Finasteride (Proscar) 5 mg PO DAILY [facility] Last Admin: 04/20/18 09:34 Dose: 5 mg Heparin Sodium/Dextrose (Heparin/D5w 25,000 U/250 Ml) 25,000 unit in 250 mls @ 0 mls/hr IV.CONT TITRATE PRN; Protocol PRN Reason: Per Protocol Last Admin: 04/21/18 06:20 Dose: 900 units/hr, 9 mls/hr Sodium Chloride (Ns Inj) 1,000 mls @ 100 mls/hr IV.CONT .Q10H [facility] Last Admin: 04/21/18 03:15 Dose: 100 mls/hr Lactulose (Lactulose Liq) 30 ml PO DAILY PRN PRN Reason: SEVERE CONSITIPATION Latanoprost (Xalatan 0.005% Opth Drops) 1 drop EACH EYE [facility] Last Admin: 04/20/18 22:43 Dose: Not Given Metoprolol Tartrate (Lopressor) 25 mg PO BID [facility] Last Admin: 04/20/18 20:20 Dose: 25 mg Miscellaneous Medication ([facility] Information) 1 each OTHER ONCE ONE Stop: 04/21/18 08:33 Morphine Sulfate (Morphine Inj) 2 mg IV.PUSH Q4H PRN PRN Reason: PAIN 6-10 Nitroglycerin (Nitro-Bid 2% Oint) 0.5 inch TOPICAL Q6HR PRN PRN Reason: CHEST PAIN Ondansetron HCl (Zofran Inj) 4 mg IV.PUSH Q6H PRN PRN Reason: NAUSEA OR VOMITING Senna/Docusate Sodium (Shala-Colace) 1 tab PO BID [facility] Last Admin: 04/20/18 20:21 Dose: Not Given Sennosides (Senokot) 17.2 mg PO Q12H PRN PRN Reason: Moderate Constipation Sodium Chloride (Ns Flush) 2 ml IV.FLUSH BID [facility] Last Admin: 04/20/18 20:20 Dose: 2 ml Sodium Chloride (Ns Flush) 2 ml IV.FLUSH PRN PRN PRN Reason: FLUSH AFTER USING IV ACCESS Sodium Chloride (Ns Flush) 2 ml IV.FLUSH BID [facility] Sodium Chloride (Ns Flush) 2 ml IV.FLUSH PRN PRN PRN Reason: FLUSH AFTER USING IV ACCESS Timolol Maleate (Timoptic 0.5% Drops) 1 drops EACH EYE [facility] Last Admin: 04/20/18 22:43 Dose: Not Given Allergies Allergy/AdvReac Type Severity Reaction Status Date / Time acetaminophen Allergy Intermediate RASH Unverified 12/26/16 01:49 codeine Allergy Intermediate RASH Unverified 12/26/16 01:49 aspirin AdvReac Urinary Verified 04/20/18 01:36 Freq (Inc/Dec) Home Medications Medication Instructions Recorded Confirmed Type allopurinol 200 mg PO DAILY 04/20/18 04/20/18 History finasteride 5 mg PO DAILY 04/20/18 04/20/18 History timolol-latanoprost(PF) 1 drop OPHTHALMIC (EYE) HS 04/20/18 04/20/18 History Physical Exam Vital signs: Vital Signs 04/20/18 09:00 04/20/18 10:00 04/20/18 11:00 Temperature Pulse Rate 60 58 L 53 L Respiratory Rate 17 15 15 Blood Pressure 166/77 H 168/83 H 147/68 H Pulse Oximetry 96 96 96 04/20/18 12:00 04/20/18 13:00 04/20/18 14:00 Temperature 98.3 F Pulse Rate 60 63 57 L Respiratory Rate 16 15 16 Blood Pressure 154/84 H 148/76 H 131/68 Pulse Oximetry 98 98 98 04/20/18 15:00 04/20/18 16:00 04/20/18 17:00 Temperature 98.1 F Pulse Rate 72 57 L 72 Respiratory Rate 15 17 18 Blood Pressure 136/62 146/78 H Pulse Oximetry 96 96 96 04/20/18 18:00 04/20/18 19:00 04/20/18 20:00 Temperature Pulse Rate 66 66 65 Respiratory Rate 17 20 17 Blood Pressure 164/81 H 128/60 100/54 L Pulse Oximetry 96 94 L 92 L 04/20/18 20:19 04/20/18 21:00 04/20/18 22:00 Temperature Pulse Rate 64 60 55 L Respiratory Rate 30 H 20 23 Blood Pressure 153/68 H 160/77 H 164/74 H Pulse Oximetry 98 96 04/20/18 23:00 04/20/18 23:01 04/21/18 00:00 Temperature Pulse Rate 58 L 58 L 57 L Respiratory Rate 18 25 H 19 Blood Pressure 116/56 L Pulse Oximetry 04/21/18 00:06 04/21/18 01:00 04/21/18 01:01 Temperature Pulse Rate 60 57 L 56 L Respiratory Rate 19 16 17 Blood Pressure 156/72 H 144/66 H Pulse Oximetry 04/21/18 02:00 04/21/18 03:00 04/21/18 03:09 Temperature Pulse Rate 62 71 57 L Respiratory Rate 21 40 H 24 Blood Pressure 161/74 H 187/114 H 162/77 H Pulse Oximetry 04/21/18 04:00 04/21/18 04:01 04/21/18 04:09 Temperature Pulse Rate 55 L 53 L Respiratory Rate 17 18 Blood Pressure 144/63 H Pulse Oximetry 95 04/21/18 05:00 04/21/18 05:01 04/21/18 06:00 Temperature Pulse Rate 58 L 57 L 56 L Respiratory Rate 17 15 18 Blood Pressure 120/56 L 155/72 H Pulse Oximetry 04/21/18 08:08 Temperature Pulse Rate Respiratory Rate Blood Pressure Pulse Oximetry 96 Intake & Output 04/20/18 04/21/18 04/21/18 18:59 06:59 18:59 Intake Total 1480 / 1480 1490 / 1490 Output Total 550 / 550 900 / 900 Balance 930 / 930 590 / 590 Weight 75 kg Intake: IV 1000 / 1000 1250 / 1250 Heparin/D5W 25,000 U/250 mL 25, 250 / 250 000 unit In 250 ml @ Per Protocol IV.CONT TITRATE PRN Rx #:[id number] NS Inj 1,000 ML @ 100 mls/hr IV 1000 / 1000 1000 / 1000 .CONT .Q10H [facility] Rx#:[id number] Oral 480 / 480 240 / 240 Output: Urine 550 / 550 900 / 900 Other: Date of Last Bowel Movement 04/19/18 04/19/18 # Bowel Movements 0 - Constitutional no acute distress - Routine HEENT Exam ENT: Present: mucous membranes moist - Routine Neck Exam Absent: JVD - Routine Respiratory Exam Present: CTA bilaterally - Routine Cardiovascular Exam Present: RRR. Absent: murmur - Routine Abdominal Exam Present: soft, normoactive bowel sounds - Routine Extremities Exam Absent: edema - Routine Neurological Exam Absent: sensory deficit, motor deficit Results 04/21/18 05:23 04/21/18 05:23 Cardiac Enzymes 04/20/18 04/20/18 04/21/18 Range/Units 01:50 08:54 05:23 AST 21 18 (15-37) U/L Troponin I 0.11 H 0.67 H* (0.02-0.05) ng/mL Coagulation 04/20/18 04/20/18 04/20/18 Range/Units 01:50 08:54 15:52 PT 10.7 (9.8-11.6) sec APTT 25.5 52.7 H D 45.5 H (23.4-31.7) sec 04/21/18 Range/Units 05:23 PT (9.8-11.6) sec APTT 50.9 H (23.4-31.7) sec Lipids 04/20/18 Range/Units 08:54 Triglycerides 117 (42-150) mg/dL Cholesterol 225 H (120-200) mg/dL HDL Cholesterol 55.1 (40.0-60.0) mg/dL Cholesterol/HDL Ratio 4.08 Ratio CBC 04/20/18 04/21/18 Range/Units 01:50 05:23 WBC 6.7 6.5 (4.0-11.0) th/mm3 RBC 5.22 4.79 (4.50-5.90) mil/mm3 Hgb 15.9 14.5 (13.0-17.0) gm/dL Hct 46.4 43.8 (39.0-51.0) % Plt Count 190 166 (150-450) th/mm3 Neut # (Auto) 4.3 3.3 (1.8-7.7) th/mm3 Lymph # (Auto) 1.6 2.3 (1.0-4.8) th/mm3 [place] # (Auto) 0.6 0.7 (0.0-0.9) th/mm3 Eos # (Auto) 0.2 0.2 (0.0-0.4) th/mm3 Baso # (Auto) 0.0 0.0 (0.0-0.2) th/mm3 Comprehensive Metabolic Panel 04/20/18 04/21/18 Range/Units 01:50 05:23 Sodium 136 142 (136-145) meq/L Potassium 4.3 4.1 (3.5-5.1) meq/L Chloride 101 109 H D (98-107) meq/L Carbon Dioxide 25.3 24.8 (21.0-32.0) meq/L BUN 22 H 18 (7-18) mg/dL Creatinine 1.25 1.33 H (0.60-1.30) mg/dL Calcium 8.6 8.6 (8.5-10.1) mg/dL AST 21 18 (15-37) U/L ALT 28 24 (12-78) U/L Alkaline Phosphatase 82 63 (45-117) U/L Total Protein 7.9 6.6 D (6.4-8.2) g/dL Albumin 3.8 3.2 L D (3.4-5.0) g/dL Intake and Output 04/20/18 04/21/18 04/21/18 22:59 06:59 14:59 Intake Total 1480 / 1480 1490 / 1490 Output Total 550 / 550 900 / 900 Balance 930 / 930 590 / 590 Intake: IV 1000 / 1000 1250 / 1250 Heparin/D5W 25,000 U/250 mL 25, 250 / 250 000 unit In 250 ml @ Per Protocol IV.CONT TITRATE PRN Rx #:[id number] NS Inj 1,000 ML @ 100 mls/hr IV 1000 / 1000 1000 / 1000 .CONT .Q10H [facility] Rx#:[id number] Oral 480 / 480 240 / 240 Output: Urine 550 / 550 900 / 900 Other: Date of Last Bowel Movement 04/19/18 04/19/18 # Bowel Movements 0 Weight 75 kg - Imaging and Cardiology Imaging: Impressions Chest X-Ray 04/20/18 01:38 CONCLUSION: Negative examination. Assessment and Plan - Plan 78-year-old male with gout, BPH, s/p nephrectomy who presented for chest pain NSTEMI: Left heart catheterization shows severe three-vessel [place] coronary artery disease. Minimal contrast was administered given history of nephrectomy. Will administer gentle hydration. Consult cardiothoracic surgery. Obtain 2D echocardiogram.
--- NOTE | 2018-04-21 08:48 | CATHPROC ---
[employer] HIS Report Study Information Study Number Admission Scheduled Start Study Start [id number] Apr 20 2018 3:07AM 04/21/2018 Apr 21 2018 8:07AM [place] [facility] Cardiac Catheterization Admit Source Facility Department Other [facility] - Pediatrician/Medical Doctor Physician and Clinical Staff Initial Ulises Tavarez Advertising Operations Manager Drake Navarrete,RN Recorder Moriah Cervantes ,RT(R) Scrub Cristal Moon RCIS TECH2 Procedures Performed Procedure Location (Site) Vessel Name Coronary Angiograms LCA Left Coronary Coronary Angiograms RCA Right Coronary L Heart Cath Equipment Time Filament Welder Description Size Mfg Part Number Used/Scraped TRANSDUCER, TRUWAVE [id number] 08:13 GARCÍA AMOR * Used W/STOCKCOCK *[id number] *[id number] [id number] *[id number] 08:13 [employer] BLANKET,WARM AIR CCL * Used *[id number] 08:13 [employer] PACK, CCL CUSTOM * Used *[id number] 08:13 [employer] SUPPORT, ARTERIAL ADULT 39985 *[id number] Used BAND, RADIAL COMPRESSION TR [id number] 08:30 [employer] 24CM Used SHORT 24 *[id number] SHEATH, FR6 RADIAL PRELUDE 08:13 [employer] FR 6 [id number] Used EASE 11CM [id number] 08:13 [employer] WIRE, EXCHANGE 260CM 3MMJ 260CM Used *[id number] 08:13 NAMIC MANIFOLD, 4 PORT * Used *[id number] 08:13 [employer] OMNIPAQUE, 350 MG, 150ML 150ML [id number] Used History: Current Medications Medication Dosage/Unit Route Frequency Last Date/Time Taken Beta Hermes Statins (any) History: Risk Factors Family History of Hypertension Dyslipidemia Previous NV Previous Heart Failure Premature CAD No No No No No Prior Valve Prior PCI Prior CABG Surgery No No No Cerebrovascular Peripheral Artery Chronic Lung On Dialysis Diabetes Disease Disease Disease No No No No No History: Stress Tests Stress or Imaging Studies Performed No History: Other Current Smoker No Labs Hgb (g/dl) Hct (%) WBC (l/cumm) Platelets (thousands) 11.60-17.00 35.00-51.00 4.00-11.00 150.00-450.00 14.5 43.8 6.5 166 Glucose (mg/dl) BUN (mg/dl) Creatinine (mg/dl) BUN:Creatinine (1:x) 74.00-106.00 7.00-18.00 0.50-1.30 10.00-20.00 96 18 1.3 13.8 Na (meq/l) K (meq/l) 136.00-145.00 3.50-5.10 142 4.1 INR (PTT:PT) 0.90-1.10 1.1 Troponin I (ng/ml) CPK-MB (ng/ML) 0.02-0.05 0.50-3.60 0.67 Not Drawn Medication Medication Total Dose (Bolus/Oral) Medication Total Dosage/Unit 1% XYLOCAINE 5 mL FENTANYL 75 mcg HEPARIN 5000 units RADIAL COCKTAIL 5 mL (Bolus) VERSED 1 mg Medications (Bolus/Oral) Medication Time Given Dosage/Unit Administered By Reason VERSED 04/21/2018 8:20:49 AM 1 mg Rosalba, Drake 1 mg VERSED given in lab by Drake Navarrete RN via Peripheral IV. Ordered by Ulises Milner. 1% XYLOCAINE 04/21/2018 8:21:22 AM 5 mL Ulises Milner 5 mL 1% XYLOCAINE given in lab by Ulises Milner via Subcutaneous. Ordered by Ulises Milner. FENTANYL 04/21/2018 8:21:58 AM 50 mcg Rosalba, Drake 50 mcg FENTANYL given in lab by Drake Navarrete RN via Peripheral IV. Ordered by Ulises Milner. Ntg 200mcg Verapamil 2.5mg Heparin RADIAL COCKTAIL 04/21/2018 8:22:35 AM 5 mL (Bolus) Ulises Milner 2000U 5 mL (Bolus) RADIAL COCKTAIL given in lab by Ulises Milner via Radial. Using [Solution Name]. Ordere d by Ulises Milner. Reason: Ntg 200mcg. FENTANYL 04/21/2018 8:24:09 AM 25 mcg Rosalba, Drake 25 mcg FENTANYL given in lab by Drake Navarrete RN via Peripheral IV. Ordered by Ulises Milner. HEPARIN 04/21/2018 8:25:25 AM 5000 units Rosalba, Drake 5000 units HEPARIN given in lab by Drake Navarrete RN via Peripheral IV. Ordered by Ulises Milner. Medication (Drip) Medication Time Given Dosage/Unit Concentration/Unit Diluent (ml) Solution IV Solutions 04/21/2018 8:07:45 AM 50 mL (IV) NaCl .9 Patient arrived on IV Solutions via Peripheral IV. Pump/Drip Flow using NaCl .9. Initial Case Assessment Cardiovascular HR NIBP Chest Pain 71 178/96 0 Edema Present Skin color Skin None Normal Warm Dry Circulatory - Right Pulses Dorsalis Pedis Femoral Radial 1 2 2 Scale (0,1,2,3,4,d) Circulatory - Left Pulses Dorsalis Pedis Femoral Radial 1 2 Scale (0,1,2,3,4,d) Neurological State Oriented to time-place- Alert Moves all extremities person Respiration - General Respiration Rate SpO2 (%) (B/min) 14 98 Final Case Assessment Cardiovascular HR NIBP Chest Pain 71 161/98 0 Edema Present Skin color Skin None Normal Warm Dry Circulatory - Right Pulses Dorsalis Pedis Femoral Radial 1 2 2 Scale (0,1,2,3,4,d) Circulatory - Left Pulses Dorsalis Pedis Femoral Radial 1 2 Scale (0,1,2,3,4,d) Neurological State Oriented to time-place- Alert Moves all extremities person Respiration - General Respiration Rate SpO2 (%) (B/min) 14 91 Chronological Log Time Study Chronological Log 8:00:25 Patient arrived via Bed. 8:00:28 Patient Name, D.O.B, / Armband Verified By R.N. Vitals capture started with the following parameters, Patient=Adult, Interval=5 min, Initial Pr hhkrxg=999 mmHg, 8:07:31 Deflation Rate=5 mmHg, Cuff placed on Left Arm 8:07:33 Consent signed by the physician and the patient and verified by the Pediatrician/Medical Doctor staff. 8:07:33 Pre-op and post- op instructions given; patient acknowledges understanding of instructions. 8:07:34 Verbal Stimulation=2 Physical Stimulation=2 Airway=2 Respiration=2 TOTAL=8. (0=absent, 1=li mited, 2=present) 8:07:39 Allens test performed on the right radial and ulnar artery. 8:07:40 Patient has been NPO for More than 6Hrs. 8:07:41 Skin Breakdown- none per patient 8:07:41 Patient Warmer Placed on the Table. 8:07:43 Satinder Prominences Protected 8:07:44 A # 20 IV was noted in the Antecubital (right). Grade = 0 8:07:45 Patient arrived on IV Solutions via Peripheral IV. Pump/Drip Flow using NaCl .9. 8:07:47 History and physical on the chart or being dictated. Assessment: Initial Case, HR=71 BPM, HVCP=627/96 mmhg, Chest Pain=0, Edema=None, Color=Normal, S kin = Warm, Dry Right Pulses: Aashish Ped=1, Femoral=2, Radial=2 8:07:47 Left Pulses: Aashish Ped=1, Femoral=2 Neurological: State=Alert, Ox3, LOAIZA Respiration: Resp=14 B/min, SpO2=98 % 8:08:53 HR=70 bpm, PDUT=767/96 mmhg, SpO2=99.0 %, Resp=21 B/min, Pain=0, Dannie=10, Renteria=2 8:13:48 Right Radial and groin(s) prepped with 2% chlorhexidine, and draped after a 3 min. waiting t [place]. 8:14:02 HR=70 bpm, YBUA=066/95 mmhg, SpO2=98.0 %, Resp=21 B/min, Pain=0, Dannie=10, Renteria=2 8:17:24 MD arrived. 8:18:12 Reference ECG taken 8:18:16 HR=71 bpm, QUND=951/103 mmhg, SpO2=98.0 %, Resp=21 B/min, Pain=0, Dannie=10, Renteria=2 Time Out. Correct patient, correct procedure, correct physician, labs, allergies, and equipment verified with lab pack chemist 8:20:12 team present. Fire risk assesment completed (see hard stop sheet for coding). Time Out Concu rred by MD and individual staff in procedure. 8:20:49 1 mg VERSED given in lab by Drake Navarrete, RN via Peripheral IV. Ordered by Ulises Milner. 8:21:21 Case Start 8:21:22 5 mL 1% XYLOCAINE given in lab by Ulises Milner via Subcutaneous. Ordered by Ulises Milner . 8:21:58 50 mcg FENTANYL given in lab by Drake Navarrete, RN via Peripheral IV. Ordered by Stephanie Milner 8:22:17 Access site was Right Radial Artery . A SHEATH, FR6 RADIAL PRELUDE EASE 11CM FR 6 was advanced into the Radial (right) using the Percu taneous 8:22:22 technique. 5 mL (Bolus) RADIAL COCKTAIL given in lab by Ulises Milenr via Radial. Using [Solution Name]. O rdered by Alf, 8:22:35 Ulises. Reason: Ntg 200mcg. 8:23:15 Pressure channel 1 zeroed. 8:23:17 HR=67 bpm, DKJY=238/93 mmhg, SpO2=97.0 %, Resp=15 B/min, Pain=0, Dannie=10, Renteria=2 8:24:09 25 mcg FENTANYL given in lab by Drake Navarrete RN via Peripheral IV. Ordered by Stephanie Milner JR 5.0 INFINITI CATHETER FR 5 was advanced over a wire. OMNIPAQUE, 350 MG, 150ML 150ML was use d for 8:24:38 injections. 8:24:50 The RCA was injected and visualized at various angles. OMNIPAQUE, 350 MG, 150ML 150ML used. 8:25:25 5000 units HEPARIN given in lab by Drake Navarrete, LILLIE via Peripheral IV. Ordered by Navid Milner. Recorded Pressure: LV, HR=71, Condition=Condition 1 8:25:31 (Left Ventricle) LV 166/8/14 Recorded Pressure: LV, Ao, HR=70, Condition=Condition 1 8:25:36 (Left Ventricle) LV 166/8/14, (Aorta) Ao 140/74/102 After removing the current catheter a JL 3.5 INFINITI CATHETER FR 5 was advanced over a WIRE, EX CHANGE 260CM 8:26:03 3MMJ 260CM. Recorded Pressure: Ao, HR=68, Condition=Condition 1 8:27:26 (Aorta) Ao 155/78/109 8:27:38 The LCA was injected and visualized at various angles. OMNIPAQUE, 350 MG, 150ML 150ML used. 8:28:18 HR=70 bpm, LYTM=620/98 mmhg, SpO2=91.0 %, Resp=15 B/min, Pain=0, Dannie=10, Renteria=2 8:28:42 Catheter was removed 8:28:47 Case End (Physician broke scrub) Assessment: Final Case, HR=71 BPM, BSCG=379/98 mmhg, Chest Pain=0, Edema=None, Color=Normal, Ski n = Warm, Dry Right Pulses: Aashish Ped=1, Femoral=2, Radial=2 8:29:11 Left Pulses: Aashish Ped=1, Femoral=2 Neurological: State=Alert, Ox3, LOAIZA Respiration: Resp=14 B/min, SpO2=91 % 8:29:40 Catheter(s) removed without difficulty Radial Compression Device Used. 13 mLs of air placed in BAND, RADIAL COMPRESSION TR SHORT 24 24CM. Affected 8:29:42 hand 94 % O2 saturation. 8:29:52 Sterile dressing applied to site 8:29:53 No case complications noted. 8:30:07 Cine recording checked. 8:30:07 Bedside Report will be given. 8:30:10 A Left Heart Cath was performed. 8:33:13 HR=58 bpm, GYAY=870/85 mmhg, SpO2=94.0 %, Resp=11 B/min 8:33:26 [facility] moved to [facility] End Study - Contrast Media Used In Study Contrast Total Opened (mL) Total Used (mL) Total Wasted (mL) Omnipaque 20 20 0 End Study - Maximum Contrast Load Max Contrast Load (mL) 288.5 End Study - Radiation Exposure Fluoro Time (minutes) 1.2 End Study - Sheaths Sheaths Pulled By Sheath Hold Time (min) Cristal Moon End Study - Patient Disposition Complications Transferred To Interventional Outcome No Telemetry Bed No attempt made
[2018-04-21] MEDS: Senna/Docusate Sodium 8.6/50 MG Tablet PO SCH ×2 (09:39→22:07)
[2018-04-21] MEDS: Metoprolol Tartrate 25 MG Tablet PO SCH ×2 (09:40→22:05)
[2018-04-21] MEDS ORDERED: Iohexol 350 MG/ML 50 ML Vial (for Cath Lab) IVCONTRAST ONE (09:40)
[2018-04-21] MEDS: Finasteride 5 MG Tablet PO SCH (09:40)
--- NOTE | 2018-04-21 10:56 | ECHRPT ---
Indication: CONCLUSIONS Normal left ventricular size. Mild concentric left ventricular hypertrophy. Doppler parameters are consistent with impaired left ventricular relaxtion (grade 1 diastolic dysfun ction). There is mild tricuspid valve regurgitation. The estimated pulmonary arterial pressure is 26.6 mmHg. BP: / HR: Rhythm: MEASUREMENTS (Male / Female) Normal Values Technical Quality: 2D ECHO LV Diastolic Diameter PLAX 4.2 cm 4.2 - 5.9 / 3.9 - 5.3 cm LV Systolic Diameter PLAX 3.1 cm IVS Diastolic Thickness 1.2 cm 0.6 - 1.0 / 0.6 - 0.9 cm LVPW Diastolic Thickness 1.1 cm 0.6 - 1.0 / 0.6 - 0.9 cm LV Relative Wall Thickness 0.5 RV Internal Dim ED PLAX 1.8 cm LVOT Diameter 1.7 cm Aortic Root Diameter 3.0 cm LA Systolic Diameter LX 3.0 cm 3.0 - 4.0 / 2.7 - 3.8 cm LV Ejection Fraction MOD 4C 65.7 % LV Ejection Fraction 4C AL 66.7 % M-MODE Aortic Root Diameter MM 3.0 cm LA Systolic Diameter MM 3.5 cm LA Ao Ratio MM 1.2 AV Cusp Separation MM 1.6 cm DOPPLER AV Peak Velocity 97.0 cm/s AV Peak Gradient 3.8 mmHg LVOT Peak Velocity 80.9 cm/s LVOT Peak Gradient 2.6 mmHg AV Area Cont Eq pk 1.9 cm Mitral E Point Velocity 62.7 cm/s Mitral A Point Velocity 84.9 cm/s Mitral E to A Ratio 0.7 LV E' Lateral Velocity 4.9 cm/s Mitral E to LV E' Lateral Ratio 12.9 LV E' Septal Velocity 7.2 cm/s Mitral E to LV E' Septal Ratio 8.7 TR Peak Velocity 204.0 cm/s TR Peak Gradient 16.6 mmHg Right Atrial Pressure 10.0 mmHg Pulmonary Artery Systolic Pressu 26.6 mmHg Right Ventricular Systolic Press 26.6 mmHg PV Peak Velocity 87.6 cm/s PV Peak Gradient 3.1 mmHg FINDINGS LEFT VENTRICLE Normal left ventricular size. Mild concentric left ventricular hypertrophy. The left ventricular systolic function is normal with an estimated ejection fraction in the range of 60-65%. Doppler parameters are consistent with impaired left ventricular relaxtion (grade 1 diastolic dysfun ction). RIGHT VENTRICLE Normal right ventricular size and systolic function. LEFT ATRIUM The left atrial size is normal. RIGHT ATRIUM The right atrial size is normal. ATRIAL SEPTUM Normal atrial septal thickness without atrial level shunting by limited color doppler interrogation. AORTA The aortic root and proximal ascending aorta are normal in size on limited imaging. MITRAL VALVE Structurally normal mitral valve. No mitral valve stenosis or regurgitation. AORTIC VALVE Trileaflet aortic valve. No aortic valve stenosis or regurgitation. TRICUSPID VALVE Structurally normal tricuspid valve. There is mild tricuspid valve regurgitation. The estimated pulmonary arterial pressure is 26.6 mmHg. PULMONARY VALVE No pulmonary valve regurgitation or stenosis. VESSELS The inferior vena cava is normal in size. PERICARDIUM No pericardial effusion. Ulises Milner MD, FACC (Electronically Signed) Final Date:21 April 2018 10:54
--- NOTE | 2018-04-21 13:09 | P.PNCV ---
- Note Subjective/Hospital Course: pt seen and evaluated, full consult to follow sts risk score discussed with pt RISK SCORES Procedure: Isolated CAB CALCULATE Risk of Mortality: 2.329% Renal Failure: 2.704% Permanent Stroke: 1.231% Prolonged Ventilation: 7.785% DSW Infection: 0.268% Reoperation: 2.442% Morbidity or Mortality: 11.945% Short Length of Stay: 34.407% Long Length of Stay: 6.356% Objective: Vital Signs - 24 hr 04/20/18 14:00 04/20/18 15:00 04/20/18 16:00 Temperature 98.1 F Pulse Rate 57 L 72 57 L Respiratory Rate 16 15 17 Blood Pressure 131/68 136/62 Pulse Oximetry 98 96 96 04/20/18 17:00 04/20/18 18:00 04/20/18 19:00 Temperature Pulse Rate 72 66 66 Respiratory Rate 18 17 20 Blood Pressure 146/78 H 164/81 H 128/60 Pulse Oximetry 96 96 94 L 04/20/18 20:00 04/20/18 20:19 04/20/18 21:00 Temperature Pulse Rate 65 64 60 Respiratory Rate 17 30 H 20 Blood Pressure 100/54 L 153/68 H 160/77 H Pulse Oximetry 92 L 98 96 04/20/18 22:00 04/20/18 23:00 04/20/18 23:01 Temperature Pulse Rate 55 L 58 L 58 L Respiratory Rate 23 18 25 H Blood Pressure 164/74 H 116/56 L Pulse Oximetry 04/21/18 00:00 04/21/18 00:06 04/21/18 01:00 Temperature Pulse Rate 57 L 60 57 L Respiratory Rate 19 19 16 Blood Pressure 156/72 H Pulse Oximetry 04/21/18 01:01 04/21/18 02:00 04/21/18 03:00 Temperature Pulse Rate 56 L 62 71 Respiratory Rate 17 21 40 H Blood Pressure 144/66 H 161/74 H 187/114 H Pulse Oximetry 04/21/18 03:09 04/21/18 04:00 04/21/18 04:01 Temperature Pulse Rate 57 L 55 L 53 L Respiratory Rate 24 17 18 Blood Pressure 162/77 H 144/63 H Pulse Oximetry 04/21/18 04:09 04/21/18 05:00 04/21/18 05:01 Temperature Pulse Rate 58 L 57 L Respiratory Rate 17 15 Blood Pressure 120/56 L Pulse Oximetry 95 04/21/18 06:00 04/21/18 08:08 04/21/18 08:52 Temperature 96.7 F L Pulse Rate 56 L 53 L Respiratory Rate 18 16 Blood Pressure 155/72 H 144/68 H Pulse Oximetry 96 97 04/21/18 09:00 04/21/18 09:02 04/21/18 09:17 Temperature Pulse Rate 56 L 55 L 54 L Respiratory Rate 16 18 Blood Pressure 145/67 H 133/67 Pulse Oximetry 95 98 04/21/18 09:47 04/21/18 10:17 04/21/18 10:47 Temperature Pulse Rate 56 L 58 L 56 L Respiratory Rate 26 H 28 H 25 H Blood Pressure 144/69 H 181/85 H 157/86 H Pulse Oximetry 95 97 96 04/21/18 11:17 Temperature Pulse Rate 70 Respiratory Rate 28 H Blood Pressure 167/83 H Pulse Oximetry 99 Labs: Laboratory Results - last 12 hr 04/21/18 04/21/18 04/21/18 05:23 05:23 05:23 WBC 6.5 RBC 4.79 Hgb 14.5 Hct 43.8 MCV 91.5 MCH 30.3 MCHC 33.1 RDW 14.4 Plt Count 166 MPV 8.0 Neut % (Auto) 50.7 Lymph % (Auto) 35.7 [place] % (Auto) 10.6 H Eos % (Auto) 2.5 Baso % (Auto) 0.5 Neut # (Auto) 3.3 Lymph # (Auto) 2.3 [place] # (Auto) 0.7 Eos # (Auto) 0.2 Baso # (Auto) 0.0 WBC Differential . Differential Comment Auto diff final APTT 50.9 H Sodium 142 Potassium 4.1 Chloride 109 H D Carbon Dioxide 24.8 Anion Gap 8 BUN 18 Creatinine 1.33 H Estimated GFR 52 L Random Glucose 96 Calcium 8.6 Total Bilirubin 0.4 AST 18 ALT 24 Alkaline Phosphatase 63 Total Protein 6.6 D Albumin 3.2 L D Result Diagrams: 04/21/18 05:23 04/21/18 05:23
[2018-04-21] MEDS ORDERED: Dextrose 50% in Water 50 ML Vial IV.PUSH PRN (13:10)
[2018-04-21] MEDS ORDERED: Insulin Regular (For Infusion) 100 UNIT in Sodium Chlor 0.9% Inj 99 ML IV.CONT PRN (13:10)
[2018-04-21] MEDS ORDERED: Sodium Chlor 0.9% Inj 77.5 ML, Papaverine Inj 60 MG, Nitroglycerin Inj 100 MCG, dilTIAZ... IRRIGATION SCH ×3 (13:15)
[2018-04-21] MEDS ORDERED: Chlorhexidine 4% Topical 120 APPLIC/120 ML Bottle TOPICAL SCH (13:15)
[2018-04-21] MEDS ORDERED: Sodium Chloride 0.9% Irr Bot 500 ML, ceFAZolin Inj 500 MG IRRIGATION SCH ×2 (13:15)
--- NOTE | 2018-04-21 13:22 | MB ---
cc: Cristina Orlando APRN DATE: 04/21/2018 HISTORY OF PRESENT ILLNESS: A 78-year-old male who resides here in [place] for the humphrey. He is originally from [facility]. He arrived on 03/27/2018, scheduled to go back August 25. He is renting a condo with his . He is a very active gentleman who works out daily and plays tennis 3 times a week. He woke up on Saturday night with some sharp midsternal chest pain, which radiated down both arms ;became diaphoretic. Got up for a little bit and then tried to go back to bed and half an hour later the pain was intensified so they called 911 after reaching out to their insurance company. He was brought into the emergency department. Troponin peaked at 0.67 and was ruled in for a non-STEMI. He underwent a cardiac catheterization today, which showed mid distal LAD 90% stenosis, the diagonal was 90% stenosed. There was 90% stenosed, the OM 90%, the RCA 75%. He had an echocardiogram, which showed some mild left ventricular hypertrophy, some mild grade 1 diastolic dysfunction, ejection fraction 60%. No valvular disease. We were consulted to evaluate for coronary artery bypass grafting. PAST MEDICAL HISTORY: Includes benign prostatic hypertrophy, gout. He had history of kidney cancer. PAST SURGICAL HISTORY: Include right nephrectomy, history of cataract surgery. ALLERGIES: INCLUDE ACETAMINOPHEN AND CODEINE. HE WAS TOLD NOT TO TAKE ASPIRIN BECAUSE OF ONLY HAVING 1 KIDNEY. HE DOES NOT HAVE AN ALLERGY TO IT. HOME MEDICATIONS: Include: 1. Allopurinol. 2. Finasteride. 3. Timolol eyedrops. FAMILY HISTORY: Mother from a stroke; father from diabetes. He has 1 brother that had a percutaneous intervention on his heart many years ago. SOCIAL HISTORY: The patient's second , has 1 child. Remote tobacco abuse. Drinks a glass of wine daily. Exercises daily. No illicit drugs. REVIEW OF SYSTEMS: GENERAL: No night sweats, fever, heat and cold intolerance. SKIN: No psoriasis, itching or hives. HEENT: No blurred vision, hearing loss. RESPIRATORY: Positive for recent shortness of breath. CARDIOVASCULAR: As above in the HPI. GASTROINTESTINAL: No diarrhea or vomiting. GENITOURINARY: No burning, frequency, urgency. CENTRAL NERVOUS SYSTEM: No history of TIA, CVA or seizure disorder. ENDOCRINOLOGY: No diabetes or hypothyroidism. PHYSICAL EXAMINATION: VITAL SIGNS: Blood pressure 160/80, heart rate is 70, afebrile. GENERAL: Patient is awake, alert; in no acute distress. HEENT: Head is normocephalic, atraumatic. Pupils equal and reactive. Oral mucosa pink, moist. NECK: Supple. No JVD. HEART: Sounds S1, S2. Regular rate and rhythm. No audible rubs, murmurs, or gallops. LUNGS: Clear to auscultation. No wheezes, rales or rhonchi. ABDOMEN: Soft, nontender. No masses or organomegaly. EXTREMITIES: No cyanosis, clubbing or edema. He does have a TR band on the right wrist. LABORATORY DATA: Shows hemoglobin 14, hematocrit of 43. White cell count of 6.5, platelet count of 166, sodium 142, potassium 4.1, BUN of 18, creatinine 1.33. Troponin 0.67, cholesterol 225, LDL 147. INR 1.1. MRSA non-detected. IMAGING: Chest x-ray was unremarkable. IMPRESSION: This is a 78-year-old male with multivessel coronary artery disease, admitted inpatient with a non-ST segment myocardial infarction. The patient is at high risk for with his severe related disease. The procedure, alternatives, and risks have been discussed with the patient by Dr. Arias after reviewing the films. At this time, we are awaiting evaluation for insurance approval from [employer]. RECOMMENDATION: For the patient to undergo surgery here at this facility. SANDRA Giraldo MD JRT/aaron , 12:49 PM , 12:58 PM LUZ
[2018-04-21] MEDS ORDERED: ceFAZolin Inj 2,000 MG in Sodium Chlor 0.9% Inj 80 ML IV.SIG SCH (14:00)
[2018-04-21] MEDS ORDERED: ceFAZolin 2 GM Premix Inj 2 GM/50 ML PIGGYBACK IV.SIG SCH (15:00)
[2018-04-21 15:34] LABS: Bilirubin,Urine Negative (Negative); Clarity,Urine Clear (Clear); Color,Urine Straw (Yellw/Straw); Glucose,Urine (UA) Negative (Negative); Leukocyte Esterase,Urine Negative (Negative); Mucus,Urine Few /lpf (Occasional); Nitrite,Urine Negative (Negative); Specific Gravity,Urine 1.011 (1.002-1.035)
--- NOTE | 2018-04-21 16:05 | US ---
EXAM DATE: 04/21/2018 4:02 PM EST AGE/SEX: 78 years / Male INDICATIONS: PreOp cardiac surgery. CLINICAL DATA: This is the patient's initial encounter. Patient reports that signs and symptoms have been present for 1 day and indicates a pain score of 0/10. MEDICAL/SURGICAL HISTORY: . Benign prostatic hyperplasia. GOUT. Kidney cancer. . Nephrectomy. Cataract surgery. Cardiac cath. COMPARISON: No prior exams available for comparison. VELOCITY PARAMETERS: ICA/CCA Ratio: Right 0.8 , Left 1.0 ICA: Right 74 cm/sec, Left 88 cm/sec CCA: Right 94 cm/sec, Left 89 cm/sec ECA: Right 116 cm/sec, Left 146 cm/sec Vertebral: Right 53 cm/sec antegrade, Left 45 cm/sec antegrade FINDINGS: Right Carotid: Minimal noncalcified plaque.The waveforms are within normal limits. Left Carotid: Minimal noncalcified plaque. The waveforms are within normal limits. Other: None. CONCLUSION: 1. Right Internal Carotid Artery: Findings indicate <50% stenosis. 2. Left Internal Carotid Artery: Findings indicate <50% stenosis. Electronically signed by: Abdelrahman Hernandez MD 04/21/2018 4:03 PM EST
--- NOTE | 2018-04-21 16:05 | US ---
EXAM DATE: 04/21/2018 4:03 PM EST AGE/SEX: 78 years / Male INDICATIONS: PreOp cardiac surgery. CLINICAL DATA: This is the patient's initial encounter. Patient reports that signs and symptoms have been present for 1 day and indicates a pain score of 0/10. MEDICAL/SURGICAL HISTORY: . Benign prostatic hyperplasia. GOUT. Kidney cancer. . Nephrectomy. Cataract surgery. Cardiac cath. COMPARISON: No prior exams available for comparison. TECHNIQUE: Venous ultrasound of both lower extremities was performed from the inguinal ligament to t he proximal calf. Real-time, color Doppler and spectral tracing, compression and augmentation techni ques were used. FINDINGS: Right Leg: Normal compression of the deep venous system from the inguinal region to the proximal clyde f. No echogenic clot is seen. Normal response of the venous system to augmentation and respiration. Left Leg: Normal compression of the deep venous system from the inguinal region to the proximal calf . No echogenic clot is seen. Normal response of the venous system to augmentation and respiration. Other: None. CONCLUSION: 1. The study is negative for bilateral lower extremity deep venous thrombosis. Electronically signed by: Moses Mcgregor MD 04/21/2018 4:04 PM EST
--- NOTE | 2018-04-21 16:12 | US ---
EXAM DATE: 04/21/2018 4:05 PM EST AGE/SEX: 78 years / Male INDICATIONS: PreOp cardiac surgery. CLINICAL DATA: This is the patient's initial encounter. Patient reports that signs and symptoms have been present for 1 day and indicates a pain score of 0/10. MEDICAL/SURGICAL HISTORY: . Benign prostatic hyperplasia. GOUT. Kidney cancer. . Nephrectomy. Cataract surgery. Cardiac cath. COMPARISON: [facility], US VENOUS DOPPLER LEG BI, 04/21/2018. . MEASUREMENTS: RIGHT THIGH: Proximal:__5 mm Mid:__ 4 mm Distal:__3 mm LEFT THIGH: Proximal:__4 mm Mid:__4 mm Distal:__3 mm RIGHT CALF: Proximal:__1 mm Mid:__1 mm Distal:__1 mm LEFT CALF: Proximal:__2 mm Mid:__2 mm Distal:__2 mm FINDINGS: The venous system of the lower extremities are patent by color Doppler imaging. Measurements of the leg veins (in mm) are listed above. CONCLUSION: 1. Venous mapping study as described. Electronically signed by: Tobias Rowe MD 04/21/2018 4:10 PM EST
[2018-04-21] MEDS: Latanoprost 0.005% Opth Drops 2.5 ML Bottle EACH EYE SCH (22:06)
[2018-04-21] MEDS: Timolol 0.5% Drops 5 ML Bottle EACH EYE SCH (22:06)
[2018-04-22] MEDS: Chlorhexidine Gluconate 2% 1 Pack (2 Cloths) TOPICAL SCH (04:59)
[2018-04-22] MEDS: Sod Chloride 0.9% Inj 1,000 ML IV.CONT SCH ×2 (04:59→16:37)
[2018-04-22 06:41] LABS: Hematocrit 42.4 % (39.0-51.0); Hemoglobin 14.6 gm/dL (13.0-17.0); Mean Corpuscular HGB Conc 34.5 % (32.0-36.0); Mean Corpuscular Hemoglobin 30.8 pg (27.0-34.0); Mean Corpuscular Volume 89.1 fL (80.0-100.0); Mean Platelet Volume 8.1 fL (7.0-11.0); Platelet Count 163 th/mm3 (150-450); Red Blood Count 4.76 mil/mm3 (4.50-5.90); Red Cell Distribution Width 14.4 % (11.6-17.2); White Blood Count 6.3 th/mm3 (4.0-11.0)
[2018-04-22 06:50] LABS: Activated Partial Thrombo Time 25.7 sec (23.4-31.7); INR 1.1 Ratio; Prothrombin Time 10.8 sec (9.8-11.6)
[2018-04-22 06:51] LABS: Calcium 8.6 mg/dL (8.5-10.1); Carbon Dioxide 22.9 meq/L (21.0-32.0); Potassium 3.8 meq/L (3.5-5.1)
--- NOTE | 2018-04-22 07:44 | P.PNCA ---
Subjective Interval history: Patient denies any further chest pain. He denies any palpitations, lightheadedness, dizziness, passing out. Telemetry with 8 beat run of NSVT last night. Telemetry also showed a single dropped beat associated with second- degree AV block type I this morning. Patient reports plan is for bypass surgery tomorrow. Medications and Allergies Active Medications: Active Medications Al Hydroxide/Mg Hydroxide (Milk Of Kat Recinos) 30 ml PO Q12H PRN PRN Reason: Mild Constipation Aspirin (Ecotrin) 81 mg PO DAILY ON LICENSE OF [facility] Last Admin: 04/21/18 09:42 Dose: Not Given Atorvastatin Calcium (Lipitor) 40 mg PO HS ON LICENSE OF [facility] Last Admin: 04/21/18 22:05 Dose: Not Given Bisacodyl (Dulcolax Supp) 10 mg RECTAL DAILY PRN PRN Reason: SEVERE CONSITIPATION Chlorhexidine Gluconate (Chlorhexidine 2% Cloth) 3 pack TOPICAL DAILY@0400 ON LICENSE OF [facility] Stop: 04/26/18 03:59 Last Admin: 04/22/18 04:59 Dose: Not Given Chlorhexidine Gluconate (Chlorhexidine 2% Cloth) 3 pack TOPICAL DAILY@0400 PRN PRN Reason: Extra cloth needed Stop: 04/26/18 03:59 Chlorhexidine Gluconate (Hibiclens 4% Topical) 1 applicatio TOPICAL ANALYTICAL ENGINEER ON LICENSE OF [facility] Stop: 04/27/18 13:10 Sodium Chloride 500 ml/ (Cefazolin Sodium 500 mg) 0 ml IRRIGATION ANALYTICAL ENGINEER ON LICENSE OF [facility] Stop: 04/27/18 13:11 Sodium Chloride 77.5 ml/Papaverine HCl 60 mg/Nitroglycerin 100 mcg/Diltiazem HCl 100 mg 0 ml IRRIGATION ANALYTICAL ENGINEER ON LICENSE OF [facility] Stop: 04/27/18 13:10 Dextrose (D50w Vial) 50 ml IV.PUSH UNSCH PRN PRN Reason: PER HYPOGLYCEMIA PROTOCOL Finasteride (Proscar) 5 mg PO DAILY ON LICENSE OF [facility] Last Admin: 04/21/18 09:40 Dose: 5 mg Sodium Chloride (Ns Inj) 1,000 mls @ 100 mls/hr IV.CONT .Q10H ON LICENSE OF [facility] Last Admin: 04/22/18 04:59 Dose: Not Given Insulin Human Regular 100 unit (/ Sodium Chloride) 100 mls @ 3 mls/hr IV.CONT TITRATE PRN; Protocol PRN Reason: See Protocol Cefazolin Sodium/Dextrose (Ancef 2 Gm Premix Inj) 2 gm in 50 mls @ 100 mls/hr IV.SIG ANALYTICAL ENGINEER ON LICENSE OF [facility] Stop: 04/23/18 14:59 Lactulose (Lactulose Liq) 30 ml PO DAILY PRN PRN Reason: SEVERE CONSITIPATION Latanoprost (Xalatan 0.005% Opth Drops) 1 drop EACH EYE [facility] Last Admin: 04/21/18 22:06 Dose: Not Given Metoprolol Tartrate (Lopressor) 25 mg PO BID ON LICENSE OF [facility] Last Admin: 04/21/18 22:05 Dose: Not Given Metoprolol Tartrate (Lopressor) 12.5 mg PO ANALYTICAL ENGINEER ON LICENSE OF [facility] Stop: 04/27/18 13:11 Morphine Sulfate (Morphine Inj) 2 mg IV.PUSH Q4H PRN PRN Reason: PAIN 6-10 Nitroglycerin (Nitro-Bid 2% Oint) 0.5 inch TOPICAL Q6HR PRN PRN Reason: CHEST PAIN Ondansetron HCl (Zofran Inj) 4 mg IV.PUSH Q6H PRN PRN Reason: NAUSEA OR VOMITING Senna/Docusate Sodium (Shala-Colace) 1 tab PO BID ON LICENSE OF [facility] Last Admin: 04/21/18 22:07 Dose: 1 tab Sennosides (Senokot) 17.2 mg PO Q12H PRN PRN Reason: Moderate Constipation Sodium Chloride (Ns Flush) 2 ml IV.FLUSH BID ON LICENSE OF [facility] Last Admin: 04/21/18 22:07 Dose: 2 ml Sodium Chloride (Ns Flush) 2 ml IV.FLUSH PRN PRN PRN Reason: FLUSH AFTER USING IV ACCESS Timolol Maleate (Timoptic 0.5% Drops) 1 drops EACH EYE [facility] Last Admin: 04/21/18 22:06 Dose: Not Given Allergies Allergy/AdvReac Type Severity Reaction Status Date / Time acetaminophen Allergy Intermediate RASH Unverified 12/26/16 01:49 codeine Allergy Intermediate RASH Unverified 12/26/16 01:49 aspirin AdvReac Urinary Verified 04/20/18 01:36 Freq (Inc/Dec) Home Medications Medication Instructions Recorded Confirmed Type allopurinol 200 mg PO DAILY 04/20/18 04/20/18 History finasteride 5 mg PO DAILY 04/20/18 04/20/18 History timolol-latanoprost(PF) 1 drop OPHTHALMIC (EYE) 04/20/18 04/20/18 History Physical Exam Vital signs: Vital Signs 04/21/18 08:08 04/21/18 08:52 04/21/18 09:00 Temperature 96.7 F L Pulse Rate 53 L 56 L Respiratory Rate 16 Blood Pressure 144/68 H Pulse Oximetry 96 97 04/21/18 09:02 04/21/18 09:17 04/21/18 09:47 Temperature Pulse Rate 55 L 54 L 56 L Respiratory Rate 16 18 26 H Blood Pressure 145/67 H 133/67 144/69 H Pulse Oximetry 95 98 95 04/21/18 10:17 04/21/18 10:47 04/21/18 11:17 Temperature Pulse Rate 58 L 56 L 70 Respiratory Rate 28 H 25 H 28 H Blood Pressure 181/85 H 157/86 H 167/83 H Pulse Oximetry 97 96 99 04/21/18 12:17 04/21/18 13:17 04/21/18 14:17 Temperature 97.5 F L Pulse Rate 66 68 Respiratory Rate 20 18 Blood Pressure 149/86 H 147/87 H 155/93 H Pulse Oximetry 97 96 04/21/18 15:17 04/21/18 20:00 04/21/18 20:49 Temperature 97.9 F Pulse Rate 62 Respiratory Rate 18 Blood Pressure 157/70 H Pulse Oximetry 98 96 97 04/22/18 04:00 Temperature 98.2 F Pulse Rate 68 Respiratory Rate 16 Blood Pressure 118/75 Pulse Oximetry 93 L Intake & Output 04/21/18 04/22/18 04/22/18 18:59 06:59 18:59 Intake Total 1590 / 1590 240 / 240 Output Total 1775 / 1775 1075 / 1075 Balance -185 / -185 -835 / -835 Weight 163 lb 2.273 oz Intake: IV 1010 / 1010 Heparin/D5W 25,000 U/250 mL 25, 10 / 10 000 unit In 250 ml @ Per Protocol IV.CONT TITRATE PRN Rx #:[id number] NS Inj 1,000 ML @ 100 mls/hr IV 1000 / 1000 .CONT .Q10H TRAY Rx#:[id number] Oral 580 / 580 240 / 240 Output: Urine 1775 / 1775 1075 / 1075 Other: Date of Last Bowel Movement 04/19/18 04/19/18 # Bowel Movements 0 1 Narrative: GENERAL: Well-developed well-nourished. In no acute distress. NECK: No carotid bruits. No JVD. CARDIOVASCULAR: Regular rate and rhythm. No murmur appreciated. RESPIRATORY: No accessory muscle use. Clear to auscultation. Breath sounds equal bilaterally. MUSCULOSKELETAL: No clubbing or cyanosis. No edema. NEUROLOGICAL: Awake and alert. Normal speech. Results 04/22/18 05:37 04/22/18 05:37 Cardiac Enzymes 04/20/18 04/21/18 Range/Units 08:54 05:23 AST 18 (15-37) U/L Troponin I 0.67 H* (0.02-0.05) ng/mL Coagulation 04/20/18 04/20/18 04/21/18 Range/Units 08:54 15:52 05:23 PT (9.8-11.6) sec APTT 52.7 H D 45.5 H 50.9 H (23.4-31.7) sec 04/22/18 Range/Units 05:37 PT 10.8 (9.8-11.6) sec APTT 25.7 D (23.4-31.7) sec Lipids 04/20/18 Range/Units 08:54 Triglycerides 117 (42-150) mg/dL Cholesterol 225 H (120-200) mg/dL HDL Cholesterol 55.1 (40.0-60.0) mg/dL Cholesterol/HDL Ratio 4.08 Ratio CBC 04/21/18 04/22/18 Range/Units 05:23 05:37 WBC 6.5 6.3 (4.0-11.0) th/mm3 RBC 4.79 4.76 (4.50-5.90) mil/mm3 Hgb 14.5 14.6 (13.0-17.0) gm/dL Hct 43.8 42.4 (39.0-51.0) % Plt Count 166 163 (150-450) th/mm3 Neut # (Auto) 3.3 (1.8-7.7) th/mm3 Lymph # (Auto) 2.3 (1.0-4.8) th/mm3 [place] # (Auto) 0.7 (0.0-0.9) th/mm3 Eos # (Auto) 0.2 (0.0-0.4) th/mm3 Baso # (Auto) 0.0 (0.0-0.2) th/mm3 Comprehensive Metabolic Panel 04/21/18 04/22/18 Range/Units 05:23 05:37 Sodium 142 139 (136-145) meq/L Potassium 4.1 3.8 (3.5-5.1) meq/L Chloride 109 H D 107 (98-107) meq/L Carbon Dioxide 24.8 22.9 (21.0-32.0) meq/L BUN 18 19 H (7-18) mg/dL Creatinine 1.33 H 1.27 (0.60-1.30) mg/dL Calcium 8.6 8.6 (8.5-10.1) mg/dL AST 18 (15-37) U/L ALT 24 (12-78) U/L Alkaline Phosphatase 63 (45-117) U/L Total Protein 6.6 D (6.4-8.2) g/dL Albumin 3.2 L D (3.4-5.0) g/dL Intake and Output 04/21/18 04/22/18 04/22/18 22:59 06:59 14:59 Intake Total 1480 / 1480 240 / 240 Output Total 1250 / 1250 1075 / 1075 Balance 230 / 230 -835 / -835 Intake: IV 1000 / 1000 NS Inj 1,000 ML @ 100 mls/hr IV 1000 / 1000 .CONT .Q10H TRAY Rx#:[id number] Oral 480 / 480 240 / 240 Output: Urine 1250 / 1250 1075 / 1075 Other: Date of Last Bowel Movement 04/19/18 04/19/18 # Bowel Movements 1 Weight 163 lb 2.273 oz - Imaging and Cardiology Imaging: Impressions Carotid Doppler Study 04/21/18 13:10 CONCLUSION: 1. Right Internal Carotid Artery: Findings indicate <50% stenosis. 2. Left Internal Carotid Artery: Findings indicate <50% stenosis. Lower Extremity Ultrasound 04/21/18 13:10 CONCLUSION: 1. Venous mapping study as described. Venous Doppler Study 04/21/18 13:10 CONCLUSION: 1. The study is negative for bilateral lower extremity deep venous thrombosis. Assessment and Plan - Plan 78-year-old male with gout, BPH, s/p nephrectomy who presented for chest pain NSTEMI: Left heart catheterization showed severe three-vessel samish coronary artery disease. Echo with EF 6065%. CT surgery consulted, plan is for CABG. Continue aspirin, statin. Second-degree AV block type I: Hold metoprolol. Discussed Condition With: Patient, Dr. Milner
[2018-04-22] MEDS: Finasteride 5 MG Tablet PO SCH (09:01)
[2018-04-22] MEDS: Senna/Docusate Sodium 8.6/50 MG Tablet PO SCH ×2 (09:03→21:01)
--- NOTE | 2018-04-22 10:31 | P.PNCV ---
- Note Subjective/Hospital Course: A 78-year-old male who resides here in [place] for the humphrey. He is originally from [facility]. He arrived on 03/27/2018, scheduled to go back August 25. He is renting a nearby condo with his . He is a very active gentleman who works out daily and plays tennis 3 times a week. He woke up on Saturday night with some sharp midsternal chest pain, which radiated down both arms ;became diaphoretic. Got up for a little bit and then tried to go back to bed and half an hour later the pain was intensified so they called 911 after reaching out to their insurance company. He was brought into the emergency department. Troponin peaked at 0.67 and was ruled in for a non-STEMI. He underwent a cardiac catheterization today, which showed mid distal LAD 90% stenosis, the diagonal was 90% stenosed. There was 90% stenosed, the OM 90%, the RCA 75%. He had an echocardiogram, which showed some mild left ventricular hypertrophy, some mild grade 1 diastolic dysfunction, ejection fraction 60%. No valvular disease. We were consulted to evaluate for coronary artery bypass grafting. PAST MEDICAL HISTORY: Includes benign prostatic hypertrophy, gout. He had history of kidney cancer. Right nephrectomy 04/22 carotid US : unremarkable leg vein mapping : ok no chest pain had short pause early am, second degree HB / NO BB preop scheduled for surgery in am Objective: Vital Signs - 24 hr 04/21/18 10:47 04/21/18 11:17 04/21/18 12:17 Temperature 97.5 F L Pulse Rate 56 L 70 66 Respiratory Rate 25 H 28 H 20 Blood Pressure 157/86 H 167/83 H 149/86 H Pulse Oximetry 96 99 97 04/21/18 13:17 04/21/18 14:17 04/21/18 15:17 Temperature 97.9 F Pulse Rate 68 62 Respiratory Rate 18 18 Blood Pressure 147/87 H 155/93 H 157/70 H Pulse Oximetry 96 98 04/21/18 20:00 04/21/18 20:49 04/22/18 04:00 Temperature 98.2 F Pulse Rate 68 Respiratory Rate 16 Blood Pressure 118/75 Pulse Oximetry 96 97 93 L 04/22/18 08:00 04/22/18 09:00 Temperature 97.5 F L Pulse Rate 67 59 L Respiratory Rate 18 Blood Pressure 160/97 H Pulse Oximetry 95 GENERAL: SKIN: Warm and dry. HEAD: Normocephalic. EYES: No scleral icterus. No injection or drainage. NECK: Supple, trachea midline. No JVD or lymphadenopathy. CARDIOVASCULAR: Regular rate and rhythm without murmurs, gallops, or rubs. RESPIRATORY: Breath sounds equal bilaterally. No accessory muscle use. GASTROINTESTINAL: Abdomen soft, non-tender, nondistended. MUSCULOSKELETAL: No cyanosis, or edema. BACK: Nontender without obvious deformity. No CVA tenderness. Labs: Laboratory Results - last 12 hr 04/22/18 04/22/18 04/22/18 05:37 05:37 05:37 WBC 6.3 RBC 4.76 Hgb 14.6 Hct 42.4 MCV 89.1 MCH 30.8 MCHC 34.5 RDW 14.4 Plt Count 163 MPV 8.1 PT 10.8 INR 1.1 APTT 25.7 D Sodium 139 Potassium 3.8 Chloride 107 Carbon Dioxide 22.9 Anion Gap 9 BUN 19 H Creatinine 1.27 Estimated GFR 55 L Random Glucose 92 Calcium 8.6 Blood Type Antibody Screen MTS Gel Crossmatch Bld Prod Order Comment 04/22/18 06:00 WBC RBC Hgb Hct MCV MCH MCHC RDW Plt Count MPV PT INR APTT Sodium Potassium Chloride Carbon Dioxide Anion Gap BUN Creatinine Estimated GFR Random Glucose Calcium Blood Type B Positive Antibody Screen Negative MTS Gel Crossmatch See Detail Bld Prod Order Comment Result Diagrams: 04/22/18 05:37 04/22/18 05:37
--- NOTE | 2018-04-22 13:10 | P.PN ---
Subjective Interval history: telemetry- sinus with occasinal PVCs looking forward to surgery early this am - short pause Physical Exam Vital signs: Vital Signs 04/21/18 13:17 04/21/18 14:17 04/21/18 15:17 Temperature 97.9 F Pulse Rate 68 62 Respiratory Rate 18 18 Blood Pressure 147/87 H 155/93 H 157/70 H Pulse Oximetry 96 98 04/21/18 20:00 04/21/18 20:49 04/22/18 04:00 Temperature 98.2 F Pulse Rate 68 Respiratory Rate 16 Blood Pressure 118/75 Pulse Oximetry 96 97 93 L 04/22/18 08:00 04/22/18 09:00 04/22/18 12:00 Temperature 97.5 F L 96.5 F L Pulse Rate 67 59 L 61 Respiratory Rate 18 18 Blood Pressure 160/97 H 148/76 H Pulse Oximetry 95 96 Intake & Output 04/21/18 04/22/18 04/22/18 18:59 06:59 18:59 Intake Total 1590 / 1590 240 / 240 Output Total 1775 / 1775 1075 / 1075 Balance -185 / -185 -835 / -835 Weight 74 kg Intake: IV 1010 / 1010 Heparin/D5W 25,000 U/250 mL 25, 10 / 10 000 unit In 250 ml @ Per Protocol IV.CONT TITRATE PRN Rx #:[id number] NS Inj 1,000 ML @ 100 mls/hr IV 1000 / 1000 .CONT .Q10H TRAY Rx#:[id number] Oral 580 / 580 240 / 240 Output: Urine 1775 / 1775 1075 / 1075 Other: Date of Last Bowel Movement 04/19/18 04/19/18 04/22/18 # Bowel Movements 0 1 Narrative: GENERAL: Well-developed well-nourished. In no acute distress. NECK: No carotid bruits. No JVD. CARDIOVASCULAR: Regular rate and rhythm. No murmur appreciated. RESPIRATORY: No accessory muscle use. Clear to auscultation. Breath sounds equal bilaterally. MUSCULOSKELETAL: No clubbing or cyanosis. No edema. wrist- no hematoma NEUROLOGICAL: Awake and alert. Normal speech. Results - Labs CBC & Chem 7: 04/22/18 05:37 04/22/18 05:37 Laboratory Results - last 24 hr 04/21/18 04/21/1818 14:25 14:40 05:37 WBC 6.3 RBC 4.76 Hgb 14.6 Hct 42.4 MCV 89.1 MCH 30.8 MCHC 34.5 RDW 14.4 Plt Count 163 MPV 8.1 PT INR APTT Sodium Potassium Chloride Carbon Dioxide Anion Gap BUN Creatinine Estimated GFR Random Glucose Calcium Urine Color Straw Urine Clarity Clear Urine pH 6.0 Ur Specific [place] 1.011 Urine Protein Negative Urine Glucose (UA) Negative Urine Ketones Negative Urine Occult Blood Negative Urine Nitrate Negative Urine Bilirubin Negative Urine Urobilinogen Less than 2 Ur Leukocyte Esterase Negative Urine RBC Less than 1 Urine WBC Less than 1 Urine Mucus Few H Micro UA Comment Culture not ind Ur Microscopic Review Not Reportable Urine Culture Comments Culture not ind Nasal Screen MRSA (PCR) Not detected Blood Type Antibody Screen MTS Gel Crossmatch Bld Prod Order Comment 04/22/18 04/22/18 04/22/18 05:37 05:37 06:00 WBC RBC Hgb Hct MCV MCH MCHC RDW Plt Count MPV PT 10.8 INR 1.1 APTT 25.7 D Sodium 139 Potassium 3.8 Chloride 107 Carbon Dioxide 22.9 Anion Gap 9 BUN 19 H Creatinine 1.27 Estimated GFR 55 L Random Glucose 92 Calcium 8.6 Urine Color Urine Clarity Urine pH Ur Specific [place] Urine Protein Urine Glucose (UA) Urine Ketones Urine Occult Blood Urine Nitrate Urine Bilirubin Urine Urobilinogen Ur Leukocyte Esterase Urine RBC Urine WBC Urine Mucus Micro UA Comment Ur Microscopic Review Urine Culture Comments Nasal Screen MRSA (PCR) Blood Type B Positive Antibody Screen Negative MTS Gel Crossmatch See Detail Bld Prod Order Comment - Imaging Impressions Carotid Doppler Study 04/21/18 13:10 CONCLUSION: 1. Right Internal Carotid Artery: Findings indicate <50% stenosis. 2. Left Internal Carotid Artery: Findings indicate <50% stenosis. Lower Extremity Ultrasound 04/21/18 13:10 CONCLUSION: 1. Venous mapping study as described. Venous Doppler Study 04/21/18 13:10 CONCLUSION: 1. The study is negative for bilateral lower extremity deep venous thrombosis. - Procedures 04/21- cardiac cath Assessment and Plan - Plan 78 years old male ACS- NSTEMI: currently chest pain free. continue aspirin, BB , statin. - cardiology consult appreciated - for CABG jose renal insufficiency with unknown duration- continue IV fluid-monitor renal function.- stable- non oliguric DVT Prophylaxis: Heparin gtt
[2018-04-22 15:46] LABS: Hemoglobin A1c 5.9 % (4.3-6.0)
[2018-04-22] MEDS: Latanoprost 0.005% Opth Drops 2.5 ML Bottle EACH EYE SCH (21:02)
[2018-04-22] MEDS: Timolol 0.5% Drops 5 ML Bottle EACH EYE SCH (21:02)
--- NOTE | 2018-04-23 08:31 | P.PNIM ---
Subjective Interval history: Patient is lying down in bed. Denies any chest pain, no palpitations. No other complaints from the patient. Physical Exam Vital signs: Vital Signs 04/22/18 09:00 04/22/18 12:00 04/22/18 16:00 Temperature 96.5 F L 96.5 F L Pulse Rate 59 L 61 65 Respiratory Rate 18 18 Blood Pressure 148/76 H 165/86 H Pulse Oximetry 96 95 04/22/18 20:00 04/22/18 21:00 04/23/18 00:00 Temperature 98.3 F 98.6 F Pulse Rate 76 59 L 60 Respiratory Rate 20 18 Blood Pressure 151/84 H 170/85 H Pulse Oximetry 95 99 04/23/18 01:00 04/23/18 02:00 04/23/18 03:00 Temperature Pulse Rate 66 92 H 63 Respiratory Rate Blood Pressure Pulse Oximetry Intake & Output 04/22/18 04/23/18 04/23/18 18:59 06:59 18:59 Intake Total 680 / 680 Output Total 1200 / 1200 Balance -520 / -520 Intake: Oral 680 / 680 Output: Urine 1200 / 1200 Other: Date of Last Bowel Movement 04/22/18 04/22/18 # Bowel Movements 1 Narrative: General patient in no acute distress HEENT extraocular movements are intact, clear oropharyngeal mucosa, no JVD Cardiovascular S1-S2 audible, RRR, no murmurs rubs or gallops, no chest pain Respiratory clear to auscultation bilaterally Abdomen soft, nontender, nondistended, normal bowel sounds Extremities no edema 2+ distal pulses in bilateral upper and lower extremities Neuro cranial nerves II through XII intact Results - Labs CBC & Chem 7: 04/22/18 05:37 04/22/18 05:37 Laboratory Results - last 24 hr 04/22/18 05:37 Hemoglobin A1c 5.9 - Procedures 04/21- cardiac cath Assessment and Plan - Plan This patient is a 78-year-old male originally from [facility]. The patient presented to our emergency department with complaints of midsternal chest pain with radiation to both of his upper extremities. Patient also had diaphoresis during this episode of chest pain. Patient subsequently came into the emergency department and was evaluated. He was found to have an elevated serum troponin which peaked at 0.67. He was admitted for non-ST segment elevation HI and initiated on treatment. Patient underwent cardiac catheterization which showed multivessel disease and recommendations were for the patient to undergo coronary artery bypass grafting. 1. Non-ST segment elevation HI No active chest pain. The patient presented with the symptoms mentioned above. EKG showed normal sinus rhythm T wave inversions in the anterior and lateral leads. Troponins peaked at 0.67. Cardiac cath shows multivessel disease. The patient is scheduled to undergo coronary artery bypass grafting today. Patient is currently on aspirin, statin, beta-gianna. Patient shows episodes of his heart rate in the mid 50s. Holding parameters for the beta-gianna ordered. We will follow-up with recommendations from cardiology. 2. Hypertension Norvasc will be added to the patient's blood pressure medication regimen. We will continue to monitor his blood pressure and adjust his medications as needed. 3. History of nephrectomy and chronic kidney disease. Patient has chronic kidney disease. He will be started on light IV fluid hydration. Currently he is n.p.o., CABG scheduled for this afternoon. Follow-up a.m. labs. DVT prophylaxis, patient scheduled for CABG today. No pharmacotherapy for DVT prophylaxis.
[2018-04-23] MEDS: Sod Chloride 0.9% Inj 1,000 ML IV.CONT SCH ×3 (08:45→23:01)
[2018-04-23] MEDS: Chlorhexidine Gluconate 2% 1 Pack (2 Cloths) TOPICAL SCH (08:45)
[2018-04-23 09:00] LABS: Hematocrit 47.9 % (39.0-51.0); Hemoglobin 16.1 gm/dL (13.0-17.0); Mean Corpuscular HGB Conc 33.5 % (32.0-36.0); Mean Corpuscular Hemoglobin 30.4 pg (27.0-34.0); Mean Corpuscular Volume 90.7 fL (80.0-100.0); Mean Platelet Volume 8.1 fL (7.0-11.0); Platelet Count 186 th/mm3 (150-450); Red Blood Count 5.28 mil/mm3 (4.50-5.90); Red Cell Distribution Width 14.5 % (11.6-17.2); White Blood Count 5.8 th/mm3 (4.0-11.0)
[2018-04-23] MEDS ORDERED: amLODIPine 5 MG Tablet PO SCH (09:00)
[2018-04-23] MEDS: Metoprolol Tartrate 25 MG Tablet PO SCH ×2 (09:01→23:00)
[2018-04-23] MEDS: Senna/Docusate Sodium 8.6/50 MG Tablet PO SCH ×2 (09:02→23:00)
[2018-04-23] MEDS: Finasteride 5 MG Tablet PO SCH (09:02)
[2018-04-23] MEDS ORDERED: Heparin - SQ 10,000 UNITS/ML Vial ONE (13:28)
[2018-04-23] MEDS ORDERED: amLODIPine 5 MG Tablet PO ONE (14:15)
[2018-04-23] MEDS ORDERED: Ketorolac Inj 30 MG/ML (IVP) Vial IV.PUSH PRN (17:37)
[2018-04-23] MEDS ORDERED: Dexmedetomidine Inj 200 MCG in Sodium Chlor 0.9% Inj 48 ML IV.CONT PRN (17:37)
[2018-04-23] MEDS ORDERED: Post-op Orders (for Pharmacy) OTHER STA (17:37)
[2018-04-23] MEDS ORDERED: Morphine Sulfate Inj 2 MG/ML Vial IV.PUSH PRN (17:37)
[2018-04-23] MEDS ORDERED: Phenylephrine Inj 40 MG in Sodium Chlor 0.9% Inj 496 ML IV.CONT PRN (17:37)
[2018-04-23] MEDS ORDERED: RESP: Racemic Epinephrine 2.25% 0.5 ML Neb NEB PRN (17:37)
[2018-04-23] MEDS ORDERED: Insulin Regular (For Infusion) 100 UNIT in Sodium Chlor 0.9% Inj 99 ML IV.CONT PRN (17:37)
[2018-04-23] MEDS ORDERED: Magnesium Sulfate Inj 2 GM in Sodium Chlor 0.9% Inj 96 ML IV.SIG PRN ×4 (17:37)
[2018-04-23] MEDS ORDERED: Metoprolol Inj 5 MG/5 ML Vial IV.PUSH PRN (17:37)
[2018-04-23] MEDS ORDERED: Clevidipine Inj 25 MG/50 ML VIAL IV.CONT PRN (17:37)
[2018-04-23] MEDS ORDERED: Potassium Chlor 20 mEq Premix 20 MEQ/100 ML PIGGYBACK IV.SIG PRN ×2 (17:37)
[2018-04-23] MEDS ORDERED: Dextrose 50% in Water 50 ML Vial IV.PUSH PRN (17:37)
[2018-04-23] MEDS ORDERED: Calcium Chloride Inj 1 GM/10 ML Syringe IV.PUSH PRN (17:37)
[2018-04-23] MEDS ORDERED: Albumin Human 5% Inj 250 ML IV.SIG PRN (17:37)
--- NOTE | 2018-04-23 17:45 | P.OP ---
Date of procedure: 04/23/18 Anesthesia: ANSELMO Surgeon: Dana Arias MD Operation and Findings: PREPROCEDURE DIAGNOSES 1. Severe Multi Vessel Coronary Artery Disease. 2. Acute Myocardial Infarction (NSTEMI) 3. Paroxysmal Heart Block POSTPROCEDURE DIAGNOSES Same SURGICAL PROCEDURE 1. Urgent Off-pump Coronary Artery Bypass Grafting x 3 with Left Internal Mammary Artery (WARNER) to Left Anterior Descending (LAD), reverse saphenous vein graft to obtuse Marginal branch of the left Circumflex artery, reverse saphenous vein graft to the distal right Coronary artery 2. Left leg Endoscopic Vein [place] 3. Intraoperative Vein Mapping. SURGEON Dana Arias MD GENERAL OPERATOR ANIYAH Jones ANESTHESIA General endotracheal BLACKJACK SUPERVISOR GAYATRI Zhang MD PREPARATION ChloraPrep. COUNTS Needle, sponge, and instrument counts were correct. DRAINS Two 32-[place] mediastinal tubes. COMPLICATIONS None. INDICATIONS FOR PROCEDURE The patient is a 78-year-old presenting with chest pain. Patient was noted to have multi vessel coronary artery disease. The patient is being brought to the operating room for surgical revascularization therapy. PROCEDURE Patient was brought to the operating room and placed supine on the OR table. Following the induction of adequate general endotracheal anesthesia and placement of appropriate monitoring devices, intraoperative vein mapping was performed which revealed good-caliber conduit in bilateral lower extremities. The patient was then prepped and draped in standard sterile fashion. Next, 2500 units of intravenous heparin was given. The left greater saphenous vein was harvested endoscopically. This appeared to be a thick-walled but useable- caliber conduit. Simultaneously, a median sternotomy was performed and the left internal mammary artery dissected free off the posterior sternal table. The patient was systemically heparinized and anticoagulation monitored by serial ACT measurements. The internal mammary artery had excellent pulsatile flow in it and was a good-caliber conduit. The pericardium was then divided in the midline, the cradle created and targets analyzed. At this point, all anastomoses were performed in a beating-heart fashion using the X BODYqueWhistle stabilizing system. The left internal mammary artery was anastomosed to the mid LAD (2 mm) in an end-to-side fashion using 7-0 Prolene. Segment of saphenous vein graft was then anastomosed to the OM1 (2 mm) in an end-to-side fashion using 7-0 Prolene. The final segment was anastomosed to the distal RCA (2.5 mm) in an end-to-side fashion using 7-0 Prolene. The proximal anastomoses were then constructed to the ascending aorta in a running manner using 6-0 Prolene. All anastomotic sites were inspected and appeared to be hemostatic and patent. Protamine solution was given. Strict hemostasis was assured. The closure was undertaken. 2 chest tubes and ventricular pacing wires were placed. The pericardium was reapproximated in the midline. The sternum was approximated using sternal wires. The muscular and fascial layer were then closed in 3 layers. The endoscopic vein harvest site was closed in 2 layers. The patient tolerated the procedure well and was transferred to CVICU in stable condition.
[2018-04-23] MEDS ORDERED: ceFAZolin Inj 2,000 MG in Sodium Chlor 0.9% Inj 80 ML IV.SIG SCH (18:00)
[2018-04-23] MEDS: Calcium Chloride Inj 1 GM in Sodium Chlor 0.9% Inj 100 ML IV.SIG PRN ×2 (18:30→23:19)
[2018-04-23] MEDS ORDERED: fentaNYL Citrate Inj 250 MCG/5 ML Ampul ONE (18:38)
[2018-04-23] MEDS ORDERED: Morphine Inj 4 MG/ML Vial ONE (18:38)
[2018-04-23] MEDS: fentaNYL Citrate Inj 100 MCG/2 ML Ampul IV.PUSH PRN ×3 (19:07→23:19)
[2018-04-23] MEDS: Potassium Chlor 20 mEq Premix 20 MEQ/100 ML PIGGYBACK IV.SIG PRN ×2 (19:34→23:00)
--- NOTE | 2018-04-23 19:42 | XR ---
EXAM DATE: 04/23/2018 7:38 PM EST AGE/SEX: 78 years / Male INDICATIONS: Post CABG. CLINICAL DATA: This is the patient's subsequent encounter. Patient reports that signs and symptoms h ave been present for 4 - 6 days and indicates a pain score of Nonresponsive. MEDICAL/SURGICAL HISTORY: . Kidney cancer. BPH. Gout. Breast biopsy. Nephrectomy. Cataract lu irene. COMPARISON: [facility] [place], CHEST 1V SINGLE AP, 04/20/2018. . FINDINGS: Patient is now post median sternotomy. Mediastinal drain and left chest tube in place. No pneumothora x seen. There is mild atelectasis at the bases, mostly on the left. No pleural effusion. Endotracheal tube tip is approximately 4.4 cm above the kenna. Nasogastric tube courses into the sto mach. CONCLUSION: 1. Postoperative median sternotomy and coronary artery bypass graft operation. 2. Mild bibasilar atelectasis. 3. Mediastinal drain, left chest tube, nasogastric tube and endotracheal tube positions as above. No pneumothorax or significant joint effusion. Electronically signed by: Mars Obregon MD 04/23/2018 7:41 PM EST
[2018-04-23] MEDS: ceFAZolin 2 GM Premix Inj 2 GM/50 ML PIGGYBACK IV.SIG SCH (19:46)
[2018-04-23] MEDS: Amiodarone 200 MG Tablet PO SCH (23:00)
[2018-04-23] MEDS: Timolol 0.5% Drops 5 ML Bottle EACH EYE SCH (23:02)
[2018-04-23] MEDS: Latanoprost 0.005% Opth Drops 2.5 ML Bottle EACH EYE SCH (23:02)
[2018-04-24] MEDS: fentaNYL Citrate Inj 100 MCG/2 ML Ampul IV.PUSH PRN ×3 (03:29→05:44)
[2018-04-24] MEDS: ceFAZolin 2 GM Premix Inj 2 GM/50 ML PIGGYBACK IV.SIG SCH ×3 (04:20→20:41)
[2018-04-24] MEDS: Chlorhexidine Gluconate 2% 1 Pack (2 Cloths) TOPICAL SCH (04:22)
--- NOTE | 2018-04-24 04:56 | XR ---
EXAM DATE: 04/24/2018 4:42 AM EST AGE/SEX: 78 years / Male INDICATIONS: Shortness of breath, possible pneumothorax. CLINICAL DATA: This is the patient's subsequent encounter. Patient reports that signs and symptoms h ave been present for 1 week and indicates a pain score of 7/10. MEDICAL/SURGICAL HISTORY: . Renal carcinoma. BPH. Gout. CABG. Nephrectomy. COMPARISON: [facility], CHEST 1V SINGLE AP, 04/23/2018. . FINDINGS: Single AP view the chest. Endotracheal tube and nasogastric tube no longer seen. Right IJ central basilia ous catheter, left-sided chest tube, and mediastinal drain remain in place. Mild bilateral atelectasi s unchanged. No evidence of pneumothorax or pleural effusion. Cardiomediastinal silhouette unchanged. CONCLUSION: Endotracheal tube and nasogastric tube no longer seen. Persistent mild bilateral atelectasis. Electronically signed by: Devonte Walker MD 04/24/2018 4:54 AM EST
[2018-04-24 05:06] LABS: Hematocrit 41.4 % (39.0-51.0); Hemoglobin 13.6 gm/dL (13.0-17.0); Mean Corpuscular HGB Conc 32.9 % (32.0-36.0); Mean Corpuscular Hemoglobin 29.7 pg (27.0-34.0); Mean Corpuscular Volume 90.2 fL (80.0-100.0); Mean Platelet Volume 8.5 fL (7.0-11.0); Platelet Count 159 th/mm3 (150-450); Red Blood Count 4.59 mil/mm3 (4.50-5.90); Red Cell Distribution Width 14.4 % (11.6-17.2)
[2018-04-24 05:26] LABS: Calcium 8.9 mg/dL (8.5-10.1); Carbon Dioxide 24.8 meq/L (21.0-32.0); Magnesium 2.2 mg/dL (1.5-2.5); Potassium 4.5 meq/L (3.5-5.1)
--- NOTE | 2018-04-24 07:58 | P.PNCV ---
- Note Subjective/Hospital Course: A 78-year-old male who resides here in [place] for the humphrey. He is originally from [facility]. He arrived on 03/27/2018, scheduled to go back August 25. He is renting a nearby condo with his . He is a very active gentleman who works out daily and plays tennis 3 times a week. He woke up on Saturday night with some sharp midsternal chest pain, which radiated down both arms ;became diaphoretic. Got up for a little bit and then tried to go back to bed and half an hour later the pain was intensified so they called 911 after reaching out to their insurance company. He was brought into the emergency department. Troponin peaked at 0.67 and was ruled in for a non-STEMI. He underwent a cardiac catheterization today, which showed mid distal LAD 90% stenosis, the diagonal was 90% stenosed. There was 90% stenosed, the OM 90%, the RCA 75%. He had an echocardiogram, which showed some mild left ventricular hypertrophy, some mild grade 1 diastolic dysfunction, ejection fraction 60%. No valvular disease. We were consulted to evaluate for coronary artery bypass grafting. PAST MEDICAL HISTORY: Includes benign prostatic hypertrophy, gout. He had history of kidney cancer. Right nephrectomy 04/22 carotid US : unremarkable leg vein mapping : ok no chest pain had short pause early am, second degree HB / NO BB preop scheduled for surgery in am 04/23 SURGICAL PROCEDURE 1. Urgent Off-pump Coronary Artery Bypass Grafting x 3 with Left Internal Mammary Artery (WARNER) to Left Anterior Descending (LAD), reverse saphenous vein graft to obtuse Marginal branch of the left Circumflex artery, reverse saphenous vein graft to the distal right Coronary artery 2. Left leg Endoscopic Vein [place] 3. Intraoperative Vein Mapping. 04/24 Clinically and hemodynamically stable Extubated and tolerating well Maintain chest tube to drainage Transferred to see PCU Allergic to aspirin. Will trial Plavix Objective: Vital Signs - 24 hr 04/23/18 08:00 04/23/18 08:27 04/23/18 09:00 Temperature 97.1 F L Pulse Rate 80 80 Respiratory Rate 18 Blood Pressure 180/89 H Pulse Oximetry 96 95 04/23/18 10:00 04/23/18 11:00 04/23/18 12:00 Temperature 97.7 F Pulse Rate 85 61 65 Respiratory Rate 18 Blood Pressure 173/84 H Pulse Oximetry 97 04/23/18 13:00 04/23/18 18:00 04/23/18 18:13 Temperature 98.2 F Pulse Rate 68 58 L Respiratory Rate 10 L 15 Blood Pressure 83/54 L Pulse Oximetry 97 93 L 04/23/18 19:00 04/23/18 19:46 04/23/18 20:25 Temperature 97.8 F Pulse Rate 61 Respiratory Rate 12 9 L Blood Pressure 134/72 Pulse Oximetry 98 98 95 04/23/18 21:04 04/23/18 23:00 04/23/18 23:49 Temperature Pulse Rate 65 76 Respiratory Rate 18 14 Blood Pressure Pulse Oximetry 04/23/18 23:54 04/24/18 03:00 04/24/18 03:31 Temperature 98.1 F 98.3 F Pulse Rate 75 84 74 Respiratory Rate 16 16 Blood Pressure 131/74 114/68 Pulse Oximetry 97 98 04/24/18 04:44 04/24/18 04:46 Temperature Pulse Rate 80 Respiratory Rate 16 Blood Pressure Pulse Oximetry 95 Labs: Laboratory Results - last 12 hr 04/23/18 04/23/18 04/23/18 20:21 21:47 22:55 WBC RBC Hgb Hct MCV MCH MCHC RDW Plt Count MPV Sodium Potassium Chloride Carbon Dioxide Anion Gap BUN Creatinine Estimated GFR POC Glucose 115 H 89 119 H Random Glucose Calcium Magnesium 04/24/18 04/24/18 04/24/18 00:06 02:06 04:09 WBC 10.0 D RBC 4.59 Hgb 13.6 D Hct 41.4 MCV 90.2 MCH 29.7 MCHC 32.9 RDW 14.4 Plt Count 159 MPV 8.5 Sodium Potassium Chloride Carbon Dioxide Anion Gap BUN Creatinine Estimated GFR POC Glucose 111 H 110 Random Glucose Calcium Magnesium 04/24/18 04/24/18 04/24/18 04:09 04:09 05:49 WBC RBC Hgb Hct MCV MCH MCHC RDW Plt Count MPV Sodium 140 Potassium 4.5 Chloride 106 Carbon Dioxide 24.8 Anion Gap 9 BUN 18 Creatinine 1.17 Estimated GFR 60 L POC Glucose 105 106 Random Glucose 107 H Calcium 8.9 Magnesium 2.2 Result Diagrams: 04/24/18 04:09 04/24/18 04:09
--- NOTE | 2018-04-24 07:59 | ECG ---
Date Performed: 04/24/2018 Time Performed: 05:04:46 PTAGE: 78 years EKG: Sinus rhythm nonspecific ST T-wave changes mild nonspecific GA depression in the inferior leads. Compared to prio r electrocardiogram, PVCs are no longer present and T-wave changes are less prominent. The GA depress ion is new and clinical correlation is suggested as this can be seen with pericarditis. PREVIOUS TRACING : 04/20/2018 02.52 DOCTOR: Kai Carey Interpretating Date/Time 04/24/2018 07:57:28
[2018-04-24] MEDS ORDERED: Sod Phosphate/Sod Biphosphate (Adult) Enema 133 ML Bottle RECTAL PRN (08:01)
[2018-04-24] MEDS: amLODIPine 10 MG Tablet PO SCH (09:08)
[2018-04-24] MEDS: Amiodarone 200 MG Tablet PO SCH ×2 (09:08→20:43)
[2018-04-24] MEDS: Metoprolol Tartrate 25 MG Tablet PO SCH ×2 (09:10→20:42)
[2018-04-24] MEDS: Finasteride 5 MG Tablet PO SCH (09:10)
[2018-04-24] MEDS: Multivitamin/Minerals Therapeutic Tablet PO SCH (09:11)
[2018-04-24] MEDS: Senna/Docusate Sodium 8.6/50 MG Tablet PO SCH ×2 (09:11→20:43)
--- NOTE | 2018-04-24 10:25 | P.PNIM ---
Subjective Interval history: Patient complaining of some anterior chest wall pain. Otherwise no complaints. Physical Exam Vital signs: Vital Signs 04/23/18 11:00 04/23/18 12:00 04/23/18 13:00 Temperature 97.7 F Pulse Rate 61 65 68 Respiratory Rate 18 Blood Pressure 173/84 H Pulse Oximetry 97 04/23/18 18:00 04/23/18 18:13 04/23/18 19:00 Temperature 98.2 F 97.8 F Pulse Rate 58 L 61 Respiratory Rate 10 L 15 12 Blood Pressure 83/54 L 134/72 Pulse Oximetry 97 93 L 98 04/23/18 19:46 04/23/18 20:25 04/23/18 21:04 Temperature Pulse Rate 65 Respiratory Rate 9 L 18 Blood Pressure Pulse Oximetry 98 95 04/23/18 23:00 04/23/18 23:49 04/23/18 23:54 Temperature 98.1 F Pulse Rate 76 75 Respiratory Rate 14 16 Blood Pressure 131/74 Pulse Oximetry 97 04/24/18 03:00 04/24/18 03:31 04/24/18 04:44 Temperature 98.3 F Pulse Rate 84 74 80 Respiratory Rate 16 16 Blood Pressure 114/68 Pulse Oximetry 98 04/24/18 04:46 04/24/18 07:00 Temperature Pulse Rate 72 Respiratory Rate Blood Pressure Pulse Oximetry 95 Intake & Output 04/23/18 04/24/18 04/24/18 18:59 06:59 18:59 Intake Total 3700 / 3700 1240 / 1240 Output Total 900 / 900 1300 / 1300 Balance 2800 / 2800 -60 / -60 Weight 75.7 kg Intake: IV 1300 / 1300 760 / 760 Buminate 5% Inj 250 ML @ 250 250 / 250 mls/hr IV.SIG UNSCH PRN Rx#: [id number] Calcium Chloride Inj 1 GM In NS 210 / 210 Inj 100 ML @ 100 mls/hr IV.SIG PRN PRN Rx#:[id number] KCl 20 mEq Premix Inj 20 meq In 200 / 200 100 ml @ 50 mls/hr IV.SIG PRN PRN Rx#:[id number] Ancef 2 GM Premix Inj 2 gm In 50 / 50 100 / 100 50 ml @ 100 mls/hr IV.SIG Q8H TRAY Rx#:[id number] Oral 480 / 480 Anesthesia Amount 1999 / 1999 Cell Saver Amount 400 / 400 Output: Estimated Blood Loss 400 / 400 Urine Amount (Catheter) 500 / 500 1050 / 1050 Indwelling Temp Sensing 500 / 500 1050 / 1050 Catheter Chest Tube Drainage 250 / 250 #1Y and #2Y 250 / 250 Other: Date of Last Bowel Movement 04/22/18 # Bowel Movements 0 Narrative: General patient complains of some anterior wall chest pain after undergoing surgery yesterday. HEENT extraocular movements are intact, clear oropharyngeal mucosa, no JVD Cardiovascular S1-S2 audible, bandage covering the anterior mid chest wall Respiratory chest tube in place draining serosanguineous fluid. Abdomen soft, nontender, nondistended, normal bowel sounds Extremities no edema 2+ distal pulses in bilateral upper and lower extremities Neuro no neurological deficits. - Urinary Catheter Management Indwelling Temp Sensing Catheter Cath placed during this visit: yes, but has since been removed by the nurse Reason for continuing: Continue criteria not met Insertion date: 04/23/18 Insertion time: 13:30 Removal date: 04/24/18 Removal time: 05:15 Results - Labs CBC & Chem 7: 04/24/18 04:09 04/24/18 04:09 Laboratory Results - last 24 hr 04/23/18 04/23/18 04/23/18 19:16 20:21 21:47 WBC RBC Hgb Hct MCV MCH MCHC RDW Plt Count MPV Sodium Potassium Chloride Carbon Dioxide Anion Gap BUN Creatinine Estimated GFR POC Glucose 114 H 115 H 89 Random Glucose Calcium Magnesium 04/23/18 04/24/18 04/24/18 22:55 00:06 02:06 WBC RBC Hgb Hct MCV MCH MCHC RDW Plt Count MPV Sodium Potassium Chloride Carbon Dioxide Anion Gap BUN Creatinine Estimated GFR POC Glucose 119 H 111 H 110 Random Glucose Calcium Magnesium 04/24/18 04/24/18 04/24/18 04:09 04:09 04:09 WBC 10.0 D RBC 4.59 Hgb 13.6 D Hct 41.4 MCV 90.2 MCH 29.7 MCHC 32.9 RDW 14.4 Plt Count 159 MPV 8.5 Sodium 140 Potassium 4.5 Chloride 106 Carbon Dioxide 24.8 Anion Gap 9 BUN 18 Creatinine 1.17 Estimated GFR 60 L POC Glucose 105 Random Glucose 107 H Calcium 8.9 Magnesium 2.2 04/24/18 04/24/18 05:49 08:04 WBC RBC Hgb Hct MCV MCH MCHC RDW Plt Count MPV Sodium Potassium Chloride Carbon Dioxide Anion Gap BUN Creatinine Estimated GFR POC Glucose 106 107 Random Glucose Calcium Magnesium - Imaging Impressions Chest X-Ray 04/23/18 17:38 CONCLUSION: 1. Postoperative median sternotomy and coronary artery bypass graft operation. 2. Mild bibasilar atelectasis. 3. Mediastinal drain, left chest tube, nasogastric tube and endotracheal tube positions as above. No pneumothorax or significant joint effusion. Chest X-Ray 04/24/18 05:00 CONCLUSION: Endotracheal tube and nasogastric tube no longer seen. Persistent mild bilateral atelectasis. - Procedures 04/21- cardiac cath Assessment and Plan - Plan This patient is a 78-year-old male originally from [facility]. The patient presented to our emergency department with complaints of midsternal chest pain with radiation to both of his upper extremities. Patient also had diaphoresis during this episode of chest pain. Patient subsequently came into the emergency department and was evaluated. He was found to have an elevated serum troponin which peaked at 0.67. He was admitted for non-ST segment elevation [place] and initiated on treatment. Patient underwent cardiac catheterization which showed multivessel disease and recommendations were for the patient to undergo coronary artery bypass grafting. 1. Non-ST segment elevation [place] 2. S/P CABG Mild chest pain after yesterdays surgery. Continue Aspirin, plavix, beta gianna, statin. Chest tube in place to drainage. Cardiothorac surgery monitoring the patient and managing chest tube. Patient was able to ambulate this morning. Continue to monitor on telemetry. I will follow up with recs from Cardiovasc team. We will follow-up with recommendations from cardiology. 3. Hypertension Continue BB, and norvasc. 3. History of nephrectomy and chronic kidney disease. Patient has chronic kidney disease. Serum cr slightly improved to 1.17 today. SCDs for DVT prophylaxis. Patient underwent CABG yesterday
--- NOTE | 2018-04-24 10:46 | P.DIET ---
Nutritional Evaluation Screening comments: MDC for Diet Education s/p CABG x 4 on 04/23 received. Patient Navigator to provide education. Consult RD if complexities with diet education arise.
[2018-04-24] MEDS: Sod Chloride 0.9% Inj 1,000 ML IV.CONT SCH ×2 (10:54→22:14)
[2018-04-24] MEDS: Insulin NovoLOG Aspart Correctional Sugar Inj SQ SCH ×4 (11:03→22:14)
[2018-04-24] MEDS: Latanoprost 0.005% Opth Drops 2.5 ML Bottle EACH EYE SCH (20:43)
[2018-04-24] MEDS: Docusate Sodium 100 MG Capsule PO SCH (20:43)
[2018-04-24] MEDS: Timolol 0.5% Drops 5 ML Bottle EACH EYE SCH (20:45)
[2018-04-25] MEDS: ceFAZolin 2 GM Premix Inj 2 GM/50 ML PIGGYBACK IV.SIG SCH (05:00)
[2018-04-25] MEDS: Insulin NovoLOG Aspart Correctional Sugar Inj SQ SCH ×5 (05:02→21:00)
[2018-04-25] MEDS: Chlorhexidine Gluconate 2% 1 Pack (2 Cloths) TOPICAL SCH (05:06)
[2018-04-25 05:07] LABS: Baso % (Auto) 0.3 % (0.0-2.0); Eos # (Auto) 0.1 th/mm3 (0.0-0.4); Eos % (Auto) 0.8 % (0.0-4.0); Hematocrit 41.2 % (39.0-51.0); Hemoglobin 13.7 gm/dL (13.0-17.0); Lymph # (Auto) 1.3 th/mm3 (1.0-4.8); Lymph % (Auto) 10.3 % (9.0-44.0); Mean Corpuscular HGB Conc 33.3 % (32.0-36.0); Mean Corpuscular Hemoglobin 30.4 pg (27.0-34.0); Mean Corpuscular Volume 91.4 fL (80.0-100.0); Mean Platelet Volume 8.1 fL (7.0-11.0); Mono # (Auto) 1.6 th/mm3 (0.0-0.9); Mono % (Auto) 12.9 % (0.0-8.0); Neut # (Auto) 9.2 th/mm3 (1.8-7.7); Neut % (Auto) 75.7 % (16.0-70.0); Platelet Count 164 th/mm3 (150-450); Red Cell Distribution Width 14.6 % (11.6-17.2); White Blood Count 12.1 th/mm3 (4.0-11.0)
[2018-04-25 05:31] LABS: Calcium 8.8 mg/dL (8.5-10.1); Carbon Dioxide 24.8 meq/L (21.0-32.0); Magnesium 1.9 mg/dL (1.5-2.5); Potassium 4.3 meq/L (3.5-5.1)
[2018-04-25] MEDS: amLODIPine 10 MG Tablet PO SCH (08:26)
[2018-04-25] MEDS: Amiodarone 200 MG Tablet PO SCH ×2 (08:26→20:09)
[2018-04-25] MEDS: Polyethylene Glycol 3350 17 GM Packet PO SCH (08:26)
[2018-04-25] MEDS: Docusate Sodium 100 MG Capsule PO SCH ×2 (08:26→21:19)
[2018-04-25] MEDS: Finasteride 5 MG Tablet PO SCH (08:26)
[2018-04-25] MEDS: Metoprolol Tartrate 25 MG Tablet PO SCH (08:27)
[2018-04-25] MEDS: Senna/Docusate Sodium 8.6/50 MG Tablet PO SCH ×2 (08:27→21:19)
[2018-04-25] MEDS: Multivitamin/Minerals Therapeutic Tablet PO SCH (08:27)
--- NOTE | 2018-04-25 08:31 | P.PNCV ---
- Note Subjective/Hospital Course: A 78-year-old male who resides here in [place] for the humphrey. He is originally from [facility]. He arrived on 03/27/2018, scheduled to go back August 25. He is renting a nearby condo with his . He is a very active gentleman who works out daily and plays tennis 3 times a week. He woke up on Saturday night with some sharp midsternal chest pain, which radiated down both arms ;became diaphoretic. Got up for a little bit and then tried to go back to bed and half an hour later the pain was intensified so they called 911 after reaching out to their insurance company. He was brought into the emergency department. Troponin peaked at 0.67 and was ruled in for a non-STEMI. He underwent a cardiac catheterization today, which showed mid distal LAD 90% stenosis, the diagonal was 90% stenosed. There was 90% stenosed, the OM 90%, the RCA 75%. He had an echocardiogram, which showed some mild left ventricular hypertrophy, some mild grade 1 diastolic dysfunction, ejection fraction 60%. No valvular disease. We were consulted to evaluate for coronary artery bypass grafting. PAST MEDICAL HISTORY: Includes benign prostatic hypertrophy, gout. He had history of kidney cancer. Right nephrectomy 04/22 carotid US : unremarkable leg vein mapping : ok no chest pain had short pause early am, second degree HB / NO BB preop scheduled for surgery in am 04/23 SURGICAL PROCEDURE 1. Urgent Off-pump Coronary Artery Bypass Grafting x 3 with Left Internal Mammary Artery (WARNER) to Left Anterior Descending (LAD), reverse saphenous vein graft to obtuse Marginal branch of the left Circumflex artery, reverse saphenous vein graft to the distal right Coronary artery 2. Left leg Endoscopic Vein [place] 3. Intraoperative Vein Mapping. 04/24 Clinically and hemodynamically stable Extubated and tolerating well Maintain chest tube to drainage Transferred to see PCU Allergic to aspirin. Will trial Plavix 04/25 Doing well Maintain chest tube drainage Increase beta-gianna Monitor creatinine Ambulate and PT Objective: Vital Signs - 24 hr 04/24/18 10:53 04/24/18 11:00 04/24/18 11:21 Temperature 98.5 F 98.5 F Pulse Rate 87 92 H Respiratory Rate 14 16 16 Blood Pressure 136/76 136/76 Pulse Oximetry 92 L 93 L 04/24/18 11:22 04/24/18 12:00 04/24/18 12:15 Temperature 97.9 F Pulse Rate 94 H 88 Respiratory Rate 18 Blood Pressure 141/69 H Pulse Oximetry 95 92 L 04/24/18 13:00 04/24/18 14:00 04/24/18 15:00 Temperature Pulse Rate 82 80 84 Respiratory Rate Blood Pressure Pulse Oximetry 04/24/18 15:12 04/24/18 16:00 04/24/18 19:00 Temperature 97.7 F Pulse Rate 81 82 103 H Respiratory Rate 20 18 Blood Pressure 119/61 Pulse Oximetry 92 L 04/24/18 20:00 04/24/18 20:22 04/24/18 21:00 Temperature 100.1 F H Pulse Rate 82 94 H 100 H Respiratory Rate 18 15 Blood Pressure 130/69 Pulse Oximetry 93 L 04/24/18 22:00 04/24/18 22:45 04/24/18 23:00 Temperature Pulse Rate 86 100 H Respiratory Rate 18 Blood Pressure Pulse Oximetry 04/25/18 00:00 04/25/18 00:40 04/25/18 01:00 Temperature 99.9 F H Pulse Rate 93 H 94 H 92 H Respiratory Rate 18 Blood Pressure 127/74 Pulse Oximetry 93 L 04/25/18 02:00 04/25/18 03:00 04/25/18 04:00 Temperature 99.5 F Pulse Rate 94 H 106 H 92 H Respiratory Rate 18 Blood Pressure 157/73 H Pulse Oximetry 94 L 04/25/18 05:00 04/25/18 06:08 Temperature Pulse Rate 102 H 100 H Respiratory Rate Blood Pressure Pulse Oximetry Labs: Laboratory Results - last 12 hr 04/22/18 04/24/18 04/25/18 06:00 21:41 01:19 WBC RBC Hgb Hct MCV MCH MCHC RDW Plt Count MPV Neut % (Auto) Lymph % (Auto) [place] % (Auto) Eos % (Auto) Baso % (Auto) Neut # (Auto) Lymph # (Auto) [place] # (Auto) Eos # (Auto) Baso # (Auto) WBC Differential Differential Comment Sodium Potassium Chloride Carbon Dioxide Anion Gap BUN Creatinine Estimated GFR POC Glucose 115 H 117 H Random Glucose Calcium Magnesium MTS Gel Crossmatch See Detail 04/25/18 04/25/18 04/25/18 04:50 04:50 04:50 WBC 12.1 H RBC 4.50 Hgb 13.7 Hct 41.2 MCV 91.4 MCH 30.4 MCHC 33.3 RDW 14.6 Plt Count 164 MPV 8.1 Neut % (Auto) 75.7 H Lymph % (Auto) 10.3 [place] % (Auto) 12.9 H Eos % (Auto) 0.8 Baso % (Auto) 0.3 Neut # (Auto) 9.2 H Lymph # (Auto) 1.3 [place] # (Auto) 1.6 H Eos # (Auto) 0.1 Baso # (Auto) 0.0 WBC Differential . Differential Comment Auto diff final Sodium 134 L Potassium 4.3 Chloride 100 Carbon Dioxide 24.8 Anion Gap 9 BUN 20 H Creatinine 1.54 H Estimated GFR 44 L POC Glucose 122 H Random Glucose 127 H Calcium 8.8 Magnesium 1.9 MTS Gel Crossmatch Result Diagrams: 04/25/18 04:50 04/25/18 04:50
[2018-04-25] MEDS ORDERED: Metoprolol Tartrate 25 MG Tablet PO ONE (09:00)
--- NOTE | 2018-04-25 10:13 | P.PNIM ---
Subjective Interval history: Patient says he didn't sleep very well last night. His chest wall discomfort has improved. Physical Exam Vital signs: Vital Signs 04/24/18 10:53 04/24/18 11:00 04/24/18 11:21 Temperature 98.5 F 98.5 F Pulse Rate 87 92 H Respiratory Rate 14 16 16 Blood Pressure 136/76 136/76 Pulse Oximetry 92 L 93 L 04/24/18 11:22 04/24/18 12:00 04/24/18 12:15 Temperature 97.9 F Pulse Rate 94 H 88 Respiratory Rate 18 Blood Pressure 141/69 H Pulse Oximetry 95 92 L 04/24/18 13:00 04/24/18 14:00 04/24/18 15:00 Temperature Pulse Rate 82 80 84 Respiratory Rate Blood Pressure Pulse Oximetry 04/24/18 15:12 04/24/18 16:00 04/24/18 19:00 Temperature 97.7 F Pulse Rate 81 82 103 H Respiratory Rate 20 18 Blood Pressure 119/61 Pulse Oximetry 92 L 04/24/18 20:00 04/24/18 20:22 04/24/18 21:00 Temperature 100.1 F H Pulse Rate 82 94 H 100 H Respiratory Rate 18 15 Blood Pressure 130/69 Pulse Oximetry 93 L 04/24/18 22:00 04/24/18 22:45 04/24/18 23:00 Temperature Pulse Rate 86 100 H Respiratory Rate 18 Blood Pressure Pulse Oximetry 04/25/18 00:00 04/25/18 00:40 04/25/18 01:00 Temperature 99.9 F H Pulse Rate 93 H 94 H 92 H Respiratory Rate 18 Blood Pressure 127/74 Pulse Oximetry 93 L 04/25/18 02:00 04/25/18 03:00 04/25/18 04:00 Temperature 99.5 F Pulse Rate 94 H 106 H 92 H Respiratory Rate 18 Blood Pressure 157/73 H Pulse Oximetry 94 L 04/25/18 05:00 04/25/18 06:08 04/25/18 08:00 Temperature 98.7 F Pulse Rate 102 H 100 H 104 H Respiratory Rate 18 Blood Pressure 126/75 Pulse Oximetry 94 L 04/25/18 08:52 04/25/18 08:53 Temperature Pulse Rate 104 H Respiratory Rate 18 Blood Pressure Pulse Oximetry 94 L Intake & Output 1204/25/18 04/25/18 18:59 06:59 18:59 Intake Total 530 / 530 820 / 820 Output Total 560 / 560 385 / 385 Balance -30 / -30 435 / 435 Weight 76.5 kg Intake: IV 50 / 50 100 / 100 Ancef 2 GM Premix Inj 2 gm In 50 / 50 100 / 100 50 ml @ 100 mls/hr IV.SIG Q8H TRAY Rx#:[id number] Oral 480 / 480 720 / 720 Output: Urine 265 / 265 Urine Amount (Catheter) 400 / 400 Straight 400 / 400 Chest Tube Drainage 160 / 160 120 / 120 #1Y and #2Y 160 / 160 120 / 120 Narrative: General patient sitting upright in a chair. HEENT extraocular movements are intact, clear oropharyngeal mucosa, no JVD Cardiovascular S1-S2 audible, bandage covering the anterior mid chest wall Respiratory chest tube in place draining serosanguineous fluid. Abdomen soft, nontender, nondistended, normal bowel sounds Extremities no edema 2+ distal pulses in bilateral upper and lower extremities Neuro no neurological deficits. - Urinary Catheter Management Indwelling Temp Sensing Catheter Cath placed during this visit: yes, but has since been removed by the nurse Reason for continuing: Not indwelling catheter Insertion date: 04/23/18 Insertion time: 13:30 Removal date: 04/24/18 Removal time: 05:15 Straight Cath placed during this visit: yes Reason for continuing: Not indwelling catheter Insertion date: 04/24/18 Insertion time: 18:00 Results - Labs CBC & Chem 7: 04/25/18 04:50 04/25/18 04:50 Laboratory Results - last 24 hr 04/22/18 04/24/18 04/24/18 06:00 10:57 16:00 WBC RBC Hgb Hct MCV MCH MCHC RDW Plt Count MPV Neut % (Auto) Lymph % (Auto) [place] % (Auto) Eos % (Auto) Baso % (Auto) Neut # (Auto) Lymph # (Auto) [place] # (Auto) Eos # (Auto) Baso # (Auto) WBC Differential Differential Comment Sodium Potassium Chloride Carbon Dioxide Anion Gap BUN Creatinine Estimated GFR POC Glucose 142 H 130 H Random Glucose Calcium Magnesium MTS Gel Crossmatch See Detail 04/24/18 04/24/18 04/25/18 19:18 21:41 01:19 WBC RBC Hgb Hct MCV MCH MCHC RDW Plt Count MPV Neut % (Auto) Lymph % (Auto) [place] % (Auto) Eos % (Auto) Baso % (Auto) Neut # (Auto) Lymph # (Auto) [place] # (Auto) Eos # (Auto) Baso # (Auto) WBC Differential Differential Comment Sodium Potassium Chloride Carbon Dioxide Anion Gap BUN Creatinine Estimated GFR POC Glucose 153 H 115 H 117 H Random Glucose Calcium Magnesium MTS Gel Crossmatch 04/25/18 04/25/18 04/25/18 04:50 04:50 04:50 WBC 12.1 H RBC 4.50 Hgb 13.7 Hct 41.2 MCV 91.4 MCH 30.4 MCHC 33.3 RDW 14.6 Plt Count 164 MPV 8.1 Neut % (Auto) 75.7 H Lymph % (Auto) 10.3 [place] % (Auto) 12.9 H Eos % (Auto) 0.8 Baso % (Auto) 0.3 Neut # (Auto) 9.2 H Lymph # (Auto) 1.3 [place] # (Auto) 1.6 H Eos # (Auto) 0.1 Baso # (Auto) 0.0 WBC Differential . Differential Comment Auto diff final Sodium 134 L Potassium 4.3 Chloride 100 Carbon Dioxide 24.8 Anion Gap 9 BUN 20 H Creatinine 1.54 H Estimated GFR 44 L POC Glucose 122 H Random Glucose 127 H Calcium 8.8 Magnesium 1.9 MTS Gel Crossmatch 04/25/18 08:25 WBC RBC Hgb Hct MCV MCH MCHC RDW Plt Count MPV Neut % (Auto) Lymph % (Auto) [place] % (Auto) Eos % (Auto) Baso % (Auto) Neut # (Auto) Lymph # (Auto) [place] # (Auto) Eos # (Auto) Baso # (Auto) WBC Differential Differential Comment Sodium Potassium Chloride Carbon Dioxide Anion Gap BUN Creatinine Estimated GFR POC Glucose 154 H Random Glucose Calcium Magnesium MTS Gel Crossmatch - Procedures 04/21- cardiac cath Assessment and Plan - Plan This patient is a 78-year-old male originally from [facility]. The patient presented to our emergency department with complaints of midsternal chest pain with radiation to both of his upper extremities. Patient also had diaphoresis during this episode of chest pain. Patient subsequently came into the emergency department and was evaluated. He was found to have an elevated serum troponin which peaked at 0.67. He was admitted for non-ST segment elevation [place] and initiated on treatment. Patient underwent cardiac catheterization which showed multivessel disease and recommendations were for the patient to undergo coronary artery bypass grafting. Patient had a febrile episode last night. Slight elevation in wbc ct. No obvious source of infection. Patient on 2 L of supplemental oxygen. Will order a chest xray. Serum Cr. elevated since yesterday. Currently 1.5. We will check the cxr. Follow up am labs. 1. Non-ST segment elevation [place] 2. S/P CABG Patient says his chest discomfort has improved. Continue Aspirin, plavix, beta gianna, statin. Chest tube in place to drainage. Cardiothorac surgery monitoring the patient and managing chest tube. Patient was able to ambulate again this morning. Continue to monitor on telemetry. I will follow up with recs from Cardiovasc team. We will follow-up with recommendations from cardiology. 3. Hypertension Continue BB, and norvasc. 3. History of nephrectomy and chronic kidney disease. Patient has chronic kidney disease. Serum cr slightly elevated 1.5 today. Will follow up cxr and decide on ivf for today. SCDs for DVT prophylaxis. Patient is ambulating.
--- NOTE | 2018-04-25 10:46 | XR ---
EXAM DATE: 04/25/2018 10:41 AM EST AGE/SEX: 78 years / Male INDICATIONS: Cough and shortness of breath. Two days post-op open heart. CLINICAL DATA: This is the patient's subsequent encounter. Patient reports that signs and symptoms h ave been present for 1 day and indicates a pain score of 0/10. MEDICAL/SURGICAL HISTORY: . Renal carcinoma. BPH. Gout. . CABG. Nephrectomy. COMPARISON: C, CHEST 1V SINGLE AP, 04/24/2018. . FINDINGS: Large bore chest tube in place on the left. Centimeters catheter mediastinal drain noted. Sternal wir es from previous bypass are evident. There is no pneumothorax. Minimal parental changes left base pro bably atelectasis. CONCLUSION: There is no significant failure Minimally increasing parenchymal changes left base probably atelectasis. Electronically signed by: Jaun Remy MD Board Certified Radiologist 04/25/2018 10:45 AM EST
[2018-04-25] MEDS: Latanoprost 0.005% Opth Drops 2.5 ML Bottle EACH EYE SCH (21:00)
[2018-04-25] MEDS: Timolol 0.5% Drops 5 ML Bottle EACH EYE SCH (21:00)
[2018-04-25] MEDS ORDERED: Metoprolol Tartrate 25 MG Tablet PO SCH (21:00)
[2018-04-26 05:43] LABS: Calcium 8.4 mg/dL (8.5-10.1); Carbon Dioxide 25.3 meq/L (21.0-32.0); Potassium 3.8 meq/L (3.5-5.1)
[2018-04-26] MEDS ORDERED: Amiodarone 200 MG Tablet PO SCH (06:14)
[2018-04-26] MEDS: Metoprolol Tartrate 25 MG Tablet PO SCH ×2 (06:15→21:44)
--- NOTE | 2018-04-26 08:47 | P.PNCV ---
- Note Subjective/Hospital Course: A 78-year-old male who resides here in [place] for the humphrey. He is originally from [facility]. He arrived on 03/27/2018, scheduled to go back August 25. He is renting a nearby condo with his . He is a very active gentleman who works out daily and plays tennis 3 times a week. He woke up on Saturday night with some sharp midsternal chest pain, which radiated down both arms ;became diaphoretic. Got up for a little bit and then tried to go back to bed and half an hour later the pain was intensified so they called 911 after reaching out to their insurance company. He was brought into the emergency department. Troponin peaked at 0.67 and was ruled in for a non-STEMI. He underwent a cardiac catheterization today, which showed mid distal LAD 90% stenosis, the diagonal was 90% stenosed. There was 90% stenosed, the OM 90%, the RCA 75%. He had an echocardiogram, which showed some mild left ventricular hypertrophy, some mild grade 1 diastolic dysfunction, ejection fraction 60%. No valvular disease. We were consulted to evaluate for coronary artery bypass grafting. PAST MEDICAL HISTORY: Includes benign prostatic hypertrophy, gout. He had history of kidney cancer. Right nephrectomy 04/22 carotid US : unremarkable leg vein mapping : ok no chest pain had short pause early am, second degree HB / NO BB preop scheduled for surgery in am 04/23 SURGICAL PROCEDURE 1. Urgent Off-pump Coronary Artery Bypass Grafting x 3 with Left Internal Mammary Artery (WARNER) to Left Anterior Descending (LAD), reverse saphenous vein graft to obtuse Marginal branch of the left Circumflex artery, reverse saphenous vein graft to the distal right Coronary artery 2. Left leg Endoscopic Vein [place] 3. Intraoperative Vein Mapping. 04/24 Clinically and hemodynamically stable Extubated and tolerating well Maintain chest tube to drainage Transferred to see PCU Allergic to aspirin. Will trial Plavix 04/25 Doing well Maintain chest tube drainage Increase beta-gianna Monitor creatinine Ambulate and PT 04/26 Hemodynamically stable and doing well Remove chest tube today Creatinine at baseline Increase beta-gianna Objective: Vital Signs - 24 hr 04/25/18 08:52 04/25/18 08:53 04/25/18 09:00 Temperature Pulse Rate 104 H 100 H Respiratory Rate 18 Blood Pressure Pulse Oximetry 94 L 04/25/18 10:00 04/25/18 11:00 04/25/18 12:00 Temperature 98.7 F Pulse Rate 96 H 93 H 98 H Respiratory Rate 18 Blood Pressure 126/75 Pulse Oximetry 94 L 04/25/18 13:00 04/25/18 14:00 04/25/18 14:19 Temperature Pulse Rate 94 H 108 H 101 H Respiratory Rate 18 Blood Pressure Pulse Oximetry 04/25/18 15:00 04/25/18 16:00 04/25/18 17:00 Temperature 98.9 F Pulse Rate 105 H 119 H 122 H Respiratory Rate 18 Blood Pressure 128/72 Pulse Oximetry 94 L 04/25/18 18:00 04/25/18 19:00 04/25/18 19:45 Temperature Pulse Rate 111 H 123 H 116 H Respiratory Rate 16 Blood Pressure Pulse Oximetry 92 L 04/25/18 20:00 04/25/18 21:00 04/25/18 22:00 Temperature 99.2 F Pulse Rate 123 H 120 H 110 H Respiratory Rate 24 Blood Pressure 126/64 Pulse Oximetry 94 L 04/25/18 23:00 04/26/18 00:00 04/26/18 01:00 Temperature 98.7 F Pulse Rate 92 H 199 H 101 H Respiratory Rate 19 Blood Pressure 126/64 Pulse Oximetry 94 L 04/26/18 02:00 04/26/18 03:16 04/26/18 04:00 Temperature Pulse Rate 93 H 107 H 98 H Respiratory Rate Blood Pressure Pulse Oximetry 04/26/18 04:07 04/26/18 05:00 04/26/18 05:57 Temperature 98.7 F Pulse Rate 107 H 130 H 103 H Respiratory Rate 22 20 Blood Pressure 119/59 L 131/67 Pulse Oximetry 94 L 92 L 04/26/18 06:00 04/26/18 07:00 04/26/18 08:00 Temperature Pulse Rate 93 H 93 H Respiratory Rate 14 Blood Pressure Pulse Oximetry 94 L Labs: Laboratory Results - last 12 hr 04/25/18 04/26/18 04/26/18 21:18 05:03 07:53 Sodium 137 Potassium 3.8 Chloride 101 Carbon Dioxide 25.3 Anion Gap 11 BUN 23 H Creatinine 1.41 H Estimated GFR 48 L POC Glucose 108 112 H Random Glucose 117 H Calcium 8.4 L Result Diagrams: 04/25/18 04:50 04/26/18 05:03
[2018-04-26] MEDS: Insulin NovoLOG Aspart Correctional Sugar Inj SQ SCH ×4 (10:00→21:55)
[2018-04-26] MEDS: Docusate Sodium 100 MG Capsule PO SCH ×2 (10:01→21:48)
[2018-04-26] MEDS: Senna/Docusate Sodium 8.6/50 MG Tablet PO SCH ×2 (10:01→21:44)
[2018-04-26] MEDS: Multivitamin/Minerals Therapeutic Tablet PO SCH (10:01)
[2018-04-26] MEDS: Finasteride 5 MG Tablet PO SCH (10:02)
[2018-04-26] MEDS: Polyethylene Glycol 3350 17 GM Packet PO SCH (10:02)
[2018-04-26] MEDS: amLODIPine 10 MG Tablet PO SCH (10:05)
[2018-04-26] MEDS ORDERED: Amiodarone Inj 150 MG in Dextrose 5% in Water Inj 97 ML IV.SIG ONE ×2 (10:50)
--- NOTE | 2018-04-26 11:45 | P.PNIM ---
Subjective Interval history: No acute complaints from the patient today. He is accompanied by his . Physical Exam Vital signs: Vital Signs 04/25/18 12:00 04/25/18 13:00 04/25/18 14:00 Temperature 98.7 F Pulse Rate 98 H 94 H 108 H Respiratory Rate 18 Blood Pressure 126/75 Pulse Oximetry 94 L 04/25/18 14:19 04/25/18 15:00 04/25/18 16:00 Temperature 98.9 F Pulse Rate 101 H 105 H 119 H Respiratory Rate 18 18 Blood Pressure 128/72 Pulse Oximetry 94 L 04/25/18 17:00 04/25/18 18:00 04/25/18 19:00 Temperature Pulse Rate 122 H 111 H 123 H Respiratory Rate Blood Pressure Pulse Oximetry 04/25/18 19:45 04/25/18 20:00 04/25/18 21:00 Temperature 99.2 F Pulse Rate 116 H 123 H 120 H Respiratory Rate 16 24 Blood Pressure 126/64 Pulse Oximetry 92 L 94 L 04/25/18 22:00 04/25/18 23:00 04/26/18 00:00 Temperature 98.7 F Pulse Rate 110 H 92 H 199 H Respiratory Rate 19 Blood Pressure 126/64 Pulse Oximetry 94 L 04/26/18 01:00 04/26/18 02:00 04/26/18 03:16 Temperature Pulse Rate 101 H 93 H 107 H Respiratory Rate Blood Pressure Pulse Oximetry 04/26/18 04:00 04/26/18 04:07 04/26/18 05:00 Temperature 98.7 F Pulse Rate 98 H 107 H 130 H Respiratory Rate 22 Blood Pressure 119/59 L Pulse Oximetry 94 L 04/26/18 05:57 04/26/18 06:00 04/26/18 07:00 Temperature Pulse Rate 103 H 93 H 93 H Respiratory Rate 20 14 Blood Pressure 131/67 Pulse Oximetry 92 L 93 L 04/26/18 08:00 04/26/18 09:00 04/26/18 10:00 Temperature 98.8 F Pulse Rate 160 H 86 120 H Respiratory Rate 16 Blood Pressure 163/90 H Pulse Oximetry 100 04/26/18 11:00 04/26/18 11:22 Temperature 97.6 F Pulse Rate 106 H 87 Respiratory Rate 16 Blood Pressure 107/51 L Pulse Oximetry 94 L Intake & Output 04/25/18 04/26/18 04/26/18 18:59 06:59 18:59 Intake Total 480 / 480 480 / 480 Output Total 920 / 920 920 / 920 Balance -440 / -440 -440 / -440 Weight 75.3 kg Intake: Oral 480 / 480 480 / 480 Output: Urine 850 / 850 900 / 900 Chest Tube Drainage 70 / 70 20 / 20 #1Y and #2Y 70 / 70 20 / 20 Other: # Voids 7 5 Narrative: General patient sitting upright in a chair. HEENT extraocular movements are intact, clear oropharyngeal mucosa, no JVD Cardiovascular S1-S2 audible, bandage covering the anterior mid chest wall Respiratory chest tube in place draining serosanguineous fluid. Abdomen soft, nontender, nondistended, normal bowel sounds Extremities no edema 2+ distal pulses in bilateral upper and lower extremities Neuro no neurological deficits. - Urinary Catheter Management Indwelling Temp Sensing Catheter Cath placed during this visit: yes, but has since been removed by the nurse Reason for continuing: Not indwelling catheter Insertion date: 04/23/18 Insertion time: 13:30 Removal date: 04/24/18 Removal time: 05:15 Straight Cath placed during this visit: yes Reason for continuing: Not indwelling catheter Insertion date: 04/24/18 Insertion time: 18:00 Results - Labs CBC & Chem 7: 04/25/18 04:50 04/26/18 05:03 Laboratory Results - last 24 hr 04/25/18 04/25/18 04/25/18 12:47 17:12 21:18 Sodium Potassium Chloride Carbon Dioxide Anion Gap BUN Creatinine Estimated GFR POC Glucose 145 H 206 H 108 Random Glucose Calcium 04/26/18 04/26/18 05:03 07:53 Sodium 137 Potassium 3.8 Chloride 101 Carbon Dioxide 25.3 Anion Gap 11 BUN 23 H Creatinine 1.41 H Estimated GFR 48 L POC Glucose 112 H Random Glucose 117 H Calcium 8.4 L - Procedures 04/21- cardiac cath Assessment and Plan - Plan This patient is a 78-year-old male originally from [facility]. The patient presented to our emergency department with complaints of midsternal chest pain with radiation to both of his upper extremities. Patient also had diaphoresis during this episode of chest pain. Patient subsequently came into the emergency department and was evaluated. He was found to have an elevated serum troponin which peaked at 0.67. He was admitted for non-ST segment elevation [place] and initiated on treatment. Patient underwent cardiac catheterization which showed multivessel disease and recommendations were for the patient to undergo coronary artery bypass grafting. Afebrile overnight. CXR no significant infiltrate. Wean off of oxygen Patient had his chest tube removed today. Atrial fibrillation with RVR Telemetry shows afib with rvr yesterday. Patient was started on amiodarone gtt. HR now under control. Cardiology following. Mg 1.9, magnesium ordered, K 3.8, patient give po K. Will follow up am labs. Keep Mg above 2, K above 4. Continue to monitor on telemetry. 1. Non-ST segment elevation [place] 2. S/P CABG Patient says his chest discomfort has improved. Continue Aspirin, plavix, beta gianna, statin. Chest tube to be removed today. Patient was able to ambulate again this morning. Continue to monitor on telemetry. I will follow up with recs from Cardiovasc team. We will follow-up with recommendations from cardiology. 3. Hypertension Continue BB, and norvasc. 4. History of nephrectomy and chronic kidney disease. Patient has chronic kidney disease. Serum cr slightly elevated improved to 1.4 today. 5. Hyperglycemia Likely stress induced. Continue sliding scale. HgbA1c 5.9 from this admission. SCDs for DVT prophylaxis. Patient is ambulating.
[2018-04-26] MEDS ORDERED: Magnesium Sulfate Inj 2 GM in Sodium Chlor 0.9% Inj 96 ML IV.SIG ONE (13:00)
[2018-04-26] MEDS: Timolol 0.5% Drops 5 ML Bottle EACH EYE SCH (21:43)
[2018-04-26] MEDS: Latanoprost 0.005% Opth Drops 2.5 ML Bottle EACH EYE SCH (21:43)
[2018-04-27 05:30] LABS: Calcium 8.4 mg/dL (8.5-10.1); Magnesium 2.3 mg/dL (1.5-2.5); Potassium 3.8 meq/L (3.5-5.1)
--- NOTE | 2018-04-27 09:19 | P.PNCV ---
- Note Subjective/Hospital Course: A 78-year-old male who resides here in [place] for the humphrey. He is originally from [facility]. He arrived on 03/27/2018, scheduled to go back August 25. He is renting a nearby condo with his . He is a very active gentleman who works out daily and plays tennis 3 times a week. He woke up on Saturday night with some sharp midsternal chest pain, which radiated down both arms ;became diaphoretic. Got up for a little bit and then tried to go back to bed and half an hour later the pain was intensified so they called 911 after reaching out to their insurance company. He was brought into the emergency department. Troponin peaked at 0.67 and was ruled in for a non-STEMI. He underwent a cardiac catheterization today, which showed mid distal LAD 90% stenosis, the diagonal was 90% stenosed. There was 90% stenosed, the OM 90%, the RCA 75%. He had an echocardiogram, which showed some mild left ventricular hypertrophy, some mild grade 1 diastolic dysfunction, ejection fraction 60%. No valvular disease. We were consulted to evaluate for coronary artery bypass grafting. PAST MEDICAL HISTORY: Includes benign prostatic hypertrophy, gout. He had history of kidney cancer. Right nephrectomy 04/22 carotid US : unremarkable leg vein mapping : ok no chest pain had short pause early am, second degree HB / NO BB preop scheduled for surgery in am 04/23 SURGICAL PROCEDURE 1. Urgent Off-pump Coronary Artery Bypass Grafting x 3 with Left Internal Mammary Artery (WARNER) to Left Anterior Descending (LAD), reverse saphenous vein graft to obtuse Marginal branch of the left Circumflex artery, reverse saphenous vein graft to the distal right Coronary artery 2. Left leg Endoscopic Vein [place] 3. Intraoperative Vein Mapping. 04/24 Clinically and hemodynamically stable Extubated and tolerating well Maintain chest tube to drainage Transferred to see PCU Allergic to aspirin. Will trial Plavix 04/25 Doing well Maintain chest tube drainage Increase beta-gianna Monitor creatinine Ambulate and PT 04/26 Hemodynamically stable and doing well Remove chest tube today Creatinine at baseline Increase beta-gianna 04/27 Doing well In normal sinus rhythm We will convert IV amiodarone to p.o. Discharge planning Objective: Vital Signs - 24 hr 04/26/18 10:00 04/26/18 11:00 04/26/18 11:22 Temperature 97.6 F Pulse Rate 120 H 106 H 87 Respiratory Rate 16 Blood Pressure 107/51 L Pulse Oximetry 94 L 04/26/18 13:00 04/26/18 14:00 04/26/18 15:00 Temperature Pulse Rate 92 H 97 H 95 H Respiratory Rate 14 Blood Pressure Pulse Oximetry 04/26/18 16:00 04/26/18 17:00 04/26/18 18:00 Temperature 97.6 F Pulse Rate 93 H 93 H 95 H Respiratory Rate 16 Blood Pressure 107/67 Pulse Oximetry 97 04/26/18 19:00 04/26/18 19:45 04/26/18 19:49 Temperature 97.7 F Pulse Rate 100 H 93 H Respiratory Rate 22 Blood Pressure 141/73 H Pulse Oximetry 96 94 L 04/26/18 20:00 04/26/18 21:00 04/26/18 22:00 Temperature Pulse Rate 94 H 92 H 84 Respiratory Rate Blood Pressure Pulse Oximetry 04/26/18 23:00 04/27/18 00:00 04/27/18 01:00 Temperature 98.6 F Pulse Rate 100 H 80 80 Respiratory Rate 16 Blood Pressure 116/62 Pulse Oximetry 94 L 04/27/18 02:00 04/27/18 03:00 04/27/18 04:00 Temperature 97.6 F Pulse Rate 74 75 76 Respiratory Rate 16 Blood Pressure 140/77 Pulse Oximetry 81 L 04/27/18 05:00 04/27/18 06:00 04/27/18 09:02 Temperature Pulse Rate 78 76 Respiratory Rate Blood Pressure Pulse Oximetry 95 Labs: Laboratory Results - last 12 hr 04/26/18 04/27/18 04/27/18 21:50 04:15 08:14 Sodium 134 L Potassium 3.8 Chloride 100 Carbon Dioxide 26.0 Anion Gap 8 BUN 31 H Creatinine 1.48 H Estimated GFR 46 L POC Glucose 125 H 119 H Random Glucose 129 H Calcium 8.4 L Magnesium 2.3 Result Diagrams: 04/25/18 04:50 04/27/18 04:15
[2018-04-27] MEDS: Finasteride 5 MG Tablet PO SCH (09:58)
[2018-04-27] MEDS: Docusate Sodium 100 MG Capsule PO SCH ×2 (09:58→21:06)
[2018-04-27] MEDS: Polyethylene Glycol 3350 17 GM Packet PO SCH (09:59)
[2018-04-27] MEDS: amLODIPine 10 MG Tablet PO SCH (09:59)
[2018-04-27] MEDS: Metoprolol Tartrate 25 MG Tablet PO SCH ×2 (09:59→20:47)
[2018-04-27] MEDS: Senna/Docusate Sodium 8.6/50 MG Tablet PO SCH ×2 (09:59→20:46)
[2018-04-27] MEDS: Multivitamin/Minerals Therapeutic Tablet PO SCH (10:02)
[2018-04-27] MEDS: Amiodarone 200 MG Tablet PO SCH ×2 (10:02→20:47)
[2018-04-27] MEDS: Insulin NovoLOG Aspart Correctional Sugar Inj SQ SCH ×4 (10:03→21:42)
--- NOTE | 2018-04-27 16:17 | P.PNIM ---
Subjective Interval history: Patient sitting in his chair. No complaints of chest pain. Physical Exam Vital signs: Vital Signs 04/26/18 17:00 04/26/18 18:00 04/26/18 19:00 Temperature Pulse Rate 93 H 95 H 100 H Respiratory Rate Blood Pressure Pulse Oximetry 04/26/18 19:45 04/26/18 19:49 04/26/18 20:00 Temperature 97.7 F Pulse Rate 93 H 94 H Respiratory Rate 22 Blood Pressure 141/73 H Pulse Oximetry 96 94 L 04/26/18 21:00 04/26/18 22:00 04/26/18 23:00 Temperature Pulse Rate 92 H 84 100 H Respiratory Rate Blood Pressure Pulse Oximetry 04/27/18 00:00 04/27/18 01:00 04/27/18 02:00 Temperature 98.6 F Pulse Rate 80 80 74 Respiratory Rate 16 Blood Pressure 116/62 Pulse Oximetry 94 L 04/27/18 03:00 04/27/18 04:00 04/27/18 05:00 Temperature 97.6 F Pulse Rate 75 76 78 Respiratory Rate 16 Blood Pressure 140/77 Pulse Oximetry 81 L 04/27/18 06:00 04/27/18 07:00 04/27/18 08:00 Temperature 97.6 F Pulse Rate 76 81 77 Respiratory Rate 18 Blood Pressure 138/77 Pulse Oximetry 96 04/27/18 09:00 04/27/18 09:02 04/27/18 10:00 Temperature Pulse Rate 84 92 H Respiratory Rate Blood Pressure Pulse Oximetry 95 04/27/18 11:00 04/27/18 12:00 04/27/18 13:00 Temperature 97.5 F L Pulse Rate 88 74 85 Respiratory Rate 18 Blood Pressure 135/74 Pulse Oximetry 97 04/27/18 14:00 04/27/18 15:00 Temperature Pulse Rate 89 82 Respiratory Rate Blood Pressure Pulse Oximetry Intake & Output 04/26/18 04/27/18 04/27/18 18:59 06:59 18:59 Intake Total 1105 / 1105 480 / 480 Output Total 500 / 500 425 / 425 Balance 605 / 605 55 / 55 Weight 75.3 kg Intake: IV 305 / 305 Cordarone Inj 450 MG In D5W Inj 205 / 205 241 ML @ 1 MG/MIN 33.33 mls/hr IV.CONT TITRATE PRN Rx#: [id number] Cordarone Inj 150 MG In D5W Inj 100 / 100 97 ML @ 600 mls/hr IV.SIG ONCE ONE Rx#:[id number] Oral 800 / 800 480 / 480 Output: Urine 500 / 500 425 / 425 Other: # Voids 3 4 Date of Last Bowel Movement 04/26/18 04/26/18 04/26/18 # Bowel Movements 1 3 Narrative: General patient sitting upright in a chair, no chest pain. HEENT extraocular movements are intact, clear oropharyngeal mucosa, no JVD Cardiovascular S1-S2 audible, bandage covering the anterior mid chest wall Respiratory chest tube in place draining serosanguineous fluid. Abdomen soft, nontender, nondistended, normal bowel sounds Extremities no edema 2+ distal pulses in bilateral upper and lower extremities Neuro no neurological deficits. - Urinary Catheter Management Indwelling Temp Sensing Catheter Cath placed during this visit: yes, but has since been removed by the nurse Reason for continuing: Not indwelling catheter Insertion date: 04/23/18 Insertion time: 13:30 Removal date: 04/24/18 Removal time: 05:15 Straight Cath placed during this visit: yes Reason for continuing: Not indwelling catheter Insertion date: 04/24/18 Insertion time: 18:00 Results - Labs CBC & Chem 7: 04/25/18 04:50 04/27/18 04:15 Laboratory Results - last 24 hr 04/26/18 04/26/18 04/26/18 16:17 16:45 21:50 Sodium Potassium Chloride Carbon Dioxide Anion Gap BUN Creatinine Estimated GFR POC Glucose 152 H 134 H 125 H Random Glucose Calcium Magnesium 04/27/18 04/27/18 04/27/18 04:15 08:14 12:08 Sodium 134 L Potassium 3.8 Chloride 100 Carbon Dioxide 26.0 Anion Gap 8 BUN 31 H Creatinine 1.48 H Estimated GFR 46 L POC Glucose 119 H 141 H Random Glucose 129 H Calcium 8.4 L Magnesium 2.3 - Procedures 04/21- cardiac cath Assessment and Plan - Plan This patient is a 78-year-old male originally from [facility]. The patient presented to our emergency department with complaints of midsternal chest pain with radiation to both of his upper extremities. Patient also had diaphoresis during this episode of chest pain. Patient subsequently came into the emergency department and was evaluated. He was found to have an elevated serum troponin which peaked at 0.67. He was admitted for non-ST segment elevation [place] and initiated on treatment. Patient underwent cardiac catheterization which showed multivessel disease and recommendations were for the patient to undergo coronary artery bypass grafting. Atrial fibrillation with RVR Telemetry shows afib with rvr yesterday. Patient was started on amiodarone gtt , now switched to PO amiodarone. HR now under control. Cardiology following. Continue to monitor electrolytes. Will follow up am labs. Keep Mg above 2, K above 4. Continue to monitor on telemetry. Will follow up with recs from Cardiology, and cardiothorac surgery. 1. Non-ST segment elevation [place] 2. S/P CABG Patient says his chest discomfort has improved. Continue Aspirin, plavix, beta gianna, statin. Chest tube to be removed today. Patient was able to ambulate again this morning. Continue to monitor on telemetry. I will follow up with recs from Cardiovasc team. We will follow-up with recommendations from cardiology. 3. Hypertension Continue BB, and norvasc. 4. History of nephrectomy and chronic kidney disease. Patient has chronic kidney disease. Serum cr around 1.4, no significant change. avoid nephrotoxic agents. 5. Hyperglycemia Likely stress induced. Continue sliding scale. HgbA1c 5.9 from this admission. SCDs for DVT prophylaxis. Patient is ambulating.
[2018-04-27] MEDS: Latanoprost 0.005% Opth Drops 2.5 ML Bottle EACH EYE SCH (20:53)
[2018-04-27] MEDS: Timolol 0.5% Drops 5 ML Bottle EACH EYE SCH (20:53)
[2018-04-28 06:16] LABS: Calcium 8.1 mg/dL (8.5-10.1); Carbon Dioxide 25.4 meq/L (21.0-32.0); Magnesium 2.2 mg/dL (1.5-2.5); Potassium 3.7 meq/L (3.5-5.1)
[2018-04-28] MEDS: Insulin NovoLOG Aspart Correctional Sugar Inj SQ SCH ×4 (07:58→21:26)
[2018-04-28] MEDS: Finasteride 5 MG Tablet PO SCH (09:27)
[2018-04-28] MEDS: amLODIPine 10 MG Tablet PO SCH (09:27)
[2018-04-28] MEDS: Multivitamin/Minerals Therapeutic Tablet PO SCH (09:27)
[2018-04-28] MEDS: Amiodarone 200 MG Tablet PO SCH ×2 (09:27→21:18)
[2018-04-28] MEDS: Metoprolol Tartrate 25 MG Tablet PO SCH ×2 (09:28→21:18)
[2018-04-28] MEDS: Polyethylene Glycol 3350 17 GM Packet PO SCH (09:29)
[2018-04-28] MEDS: Senna/Docusate Sodium 8.6/50 MG Tablet PO SCH ×2 (09:29→21:23)
--- NOTE | 2018-04-28 11:15 | P.PNCV ---
- Note Subjective/Hospital Course: A 78-year-old male who resides here in [place] for the humphrey. He is originally from [facility]. He arrived on 03/27/2018, scheduled to go back August 25. He is renting a nearby condo with his . He is a very active gentleman who works out daily and plays tennis 3 times a week. He woke up on Saturday night with some sharp midsternal chest pain, which radiated down both arms ;became diaphoretic. Got up for a little bit and then tried to go back to bed and half an hour later the pain was intensified so they called 911 after reaching out to their insurance company. He was brought into the emergency department. Troponin peaked at 0.67 and was ruled in for a non-STEMI. He underwent a cardiac catheterization today, which showed mid distal LAD 90% stenosis, the diagonal was 90% stenosed. There was 90% stenosed, the OM 90%, the RCA 75%. He had an echocardiogram, which showed some mild left ventricular hypertrophy, some mild grade 1 diastolic dysfunction, ejection fraction 60%. No valvular disease. We were consulted to evaluate for coronary artery bypass grafting. PAST MEDICAL HISTORY: Includes benign prostatic hypertrophy, gout. He had history of kidney cancer. Right nephrectomy 04/22 carotid US : unremarkable leg vein mapping : ok no chest pain had short pause early am, second degree HB / NO BB preop scheduled for surgery in am 04/23 SURGICAL PROCEDURE 1. Urgent Off-pump Coronary Artery Bypass Grafting x 3 with Left Internal Mammary Artery (WARNER) to Left Anterior Descending (LAD), reverse saphenous vein graft to obtuse Marginal branch of the left Circumflex artery, reverse saphenous vein graft to the distal right Coronary artery 2. Left leg Endoscopic Vein [place] 3. Intraoperative Vein Mapping. 04/24 Clinically and hemodynamically stable Extubated and tolerating well Maintain chest tube to drainage Transferred to see PCU Allergic to aspirin. Will trial Plavix 04/25 Doing well Maintain chest tube drainage Increase beta-gianna Monitor creatinine Ambulate and PT 04/26 Hemodynamically stable and doing well Remove chest tube today Creatinine at baseline Increase beta-gianna 04/27 Doing well In normal sinus rhythm We will convert IV amiodarone to p.o. Discharge planning 04/28 Doing well Still having some issues with frequent urination of small amounts. We will have urology evaluate Plan discharge in a.m. with home health care. Objective: Vital Signs - 24 hr 04/27/18 12:00 04/27/18 13:00 04/27/18 14:00 Temperature 97.5 F L Pulse Rate 74 85 89 Respiratory Rate 18 Blood Pressure 135/74 Pulse Oximetry 97 04/27/18 15:00 04/27/18 16:00 04/27/18 17:00 Temperature 98.0 F Pulse Rate 82 82 90 Respiratory Rate 18 Blood Pressure 131/74 Pulse Oximetry 93 L 04/27/18 18:00 04/27/18 19:00 04/27/18 20:00 Temperature 98.5 F Pulse Rate 88 100 H 102 H Respiratory Rate 16 Blood Pressure 134/66 Pulse Oximetry 95 04/27/18 20:06 04/27/18 21:00 04/27/18 22:00 Temperature Pulse Rate 98 H 84 Respiratory Rate Blood Pressure Pulse Oximetry 95 04/27/18 23:00 04/28/18 00:00 04/28/18 01:00 Temperature 98.2 F Pulse Rate 80 76 78 Respiratory Rate 16 Blood Pressure 104/67 Pulse Oximetry 93 L 04/28/18 02:00 04/28/18 03:00 04/28/18 04:00 Temperature 97.2 F L Pulse Rate 78 75 81 Respiratory Rate 16 Blood Pressure 115/62 Pulse Oximetry 93 L 04/28/18 05:00 04/28/18 06:00 04/28/18 07:12 Temperature Pulse Rate 83 80 88 Respiratory Rate Blood Pressure Pulse Oximetry 04/28/18 08:01 04/28/18 09:36 04/28/18 10:44 Temperature 97 F L Pulse Rate 88 106 H 92 H Respiratory Rate 16 Blood Pressure 128/76 Pulse Oximetry 95 Labs: Laboratory Results - last 12 hr 04/28/18 04/28/18 04:26 07:52 Sodium 137 Potassium 3.7 Chloride 104 Carbon Dioxide 25.4 Anion Gap 8 BUN 28 H Creatinine 1.35 H Estimated GFR 51 L POC Glucose 109 Random Glucose 108 H Calcium 8.1 L Magnesium 2.2 Result Diagrams: 04/25/18 04:50 04/28/18 04:26
[2018-04-28] MEDS: Docusate Sodium 100 MG Capsule PO SCH ×2 (11:35→21:23)
--- NOTE | 2018-04-28 14:53 | P.CONURO ---
History of Present Illness Service: Urology Consult date: 04/28/18 Requesting Physician: Dana Arias Reason for Consult: Frequency Primary Care Provider: No Primary Care Physician History of Present Illness: 78y.o M s/p CABG a week ago 04/23/19, currently in recovery. Doing well and will be d/c tomorrow. 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 He is on Proscar and Flomax for BPH and Allopurinol for Gout. He had one episode of retention post/op 1-2 days after and had to have str cath, since then he voids frequently mainly at night with small amounts, his VS and labs are ok Review of Systems All other systems reviewed negative except as stated in HPI [facility] - History History Provided By: Patient, Medical Record - Medical History Medical History: Medical History (Last Reviewed 04/28/18 @ 08:26 by Blaise Thomas, PT) BPH (benign prostatic hyperplasia) Gout History of kidney cancer - Surgical History Surgical History: Surgical History (Last Reviewed 04/26/18 @ 08:28 by Delma Pinto) History of nephrectomy Hx of cataract surgery - Tobacco History Second Hand Smoke Exposure: No Smoking Status: Former smoker - Alcohol History How Often Do You Have a Drink Containing Alcohol: 4 or more times a week - Substance Use History Substance History: No History of Abuse - Travel History Recent Travel in the [place] Within the Last 8 Weeks: No Recent Travel Out of the Country Within the Last 8 Weeks: No - Immunization History Tetanus Immunization: <5 Years Medications and Allergies Active Medications: Active Medications Hydrocodone Bitart/Acetaminophen ([place] 5/325) 1 tab PO Q3H PRN PRN Reason: PAIN SCALE 1 TO 5 Last Admin: 04/26/18 03:53 Dose: 1 tab Al Hydroxide/Mg Hydroxide (Milk Of Kat Licarmela) 30 ml PO Q12H PRN PRN Reason: Mild Constipation Albuterol (Duoneb Neb (Prn)) 1 ampul NEB Q2HR NEB PRN PRN Reason: WHEEZING Last Admin: 04/26/18 14:35 Dose: 1 ampul Amiodarone HCl (Cordarone) 200 mg PO Q12HR TRAY Last Admin: 04/28/18 09:27 Dose: 200 mg Amlodipine Besylate (Norvasc) 10 mg PO DAILY TRAY Last Admin: 04/28/18 09:27 Dose: 10 mg Aspirin (Ecotrin) 81 mg PO DAILY [facility] Last Admin: 04/28/18 09:27 Dose: 81 mg Atorvastatin Calcium (Lipitor) 40 mg PO HS [facility] Last Admin: 04/27/18 20:46 Dose: 40 mg Bisacodyl (Dulcolax Supp) 10 mg RECTAL DAILY PRN PRN Reason: SEVERE CONSITIPATION Last Admin: 04/26/18 10:02 Dose: 10 mg Calcium Chloride (Calcium Chloride Inj) 0.5 gm IV.PUSH UNSCH PRN PRN Reason: SEE LABEL COMMENTS Clopidogrel Bisulfate (Plavix) 75 mg PO DAILY [facility] Last Admin: 04/28/18 09:27 Dose: 75 mg Dextrose (D50w Vial) 50 ml IV.PUSH UNSCH PRN PRN Reason: PER HYPOGLYCEMIA PROTOCOL Diphenhydramine HCl (Benadryl) 50 mg PO HS PRN PRN Reason: SLEEP Last Admin: 04/25/18 21:22 Dose: 50 mg Docusate Sodium (Colace) 100 mg PO BID [facility] Last Admin: 04/28/18 11:35 Dose: Not Given Epinephrine (Racepinephrine 2.25% Neb) 0.5 ml NEB UNSCH X1 PRN PRN Reason: STRIDOR Finasteride (Proscar) 5 mg PO DAILY [facility] Last Admin: 04/28/18 09:27 Dose: 5 mg Glucagon (Glucagon Inj) 1 mg OTHER PRN PRN PRN Reason: For hypoglycemia Albumin Human (Buminate 5% Inj) 250 mls @ 250 mls/hr IV.SIG UNSCH PRN PRN Reason: SEE LABEL COMMENTS Last Infusion: 04/24/18 00:23 Dose: Infused Calcium Chloride 1 gm/ Sodium (Chloride) 110 mls @ 100 mls/hr IV.SIG PRN PRN PRN Reason: SEE LABEL COMMENTS Last Infusion: 04/24/18 01:00 Dose: Infused Magnesium Sulfate 2 gm/ Sodium (Chloride) 100 mls @ 50 mls/hr IV.SIG PRN PRN PRN Reason: SEE LABEL COMMENTS Magnesium Sulfate 2 gm/ Sodium (Chloride) 100 mls @ 50 mls/hr IV.SIG PRN PRN PRN Reason: SEE LABEL COMMENTS Potassium Chloride (Kcl 20 Meq Premix Inj) 20 meq in 100 mls @ 50 mls/hr IV.SIG PRN PRN PRN Reason: SEE LABEL COMMENTS Last Infusion: 04/24/18 01:01 Dose: Infused Potassium Chloride (Kcl 20 Meq Premix Inj) 20 meq in 100 mls @ 50 mls/hr IV.SIG PRN PRN PRN Reason: SEE LABEL COMMENTS Potassium Chloride (Kcl 20 Meq Premix Inj) 20 meq in 100 mls @ 50 mls/hr IV.SIG PRN PRN PRN Reason: SEE LABEL COMMENTS Insulin Aspart (Novolog Insulin Correctional Sugar Inj) 0 unit SQ ACHS [facility]; Protocol Last Admin: 04/28/18 07:58 Dose: Not Given Lactulose (Lactulose Liq) 30 ml PO DAILY PRN PRN Reason: SEVERE CONSITIPATION Latanoprost (Xalatan 0.005% Opth Drops) 1 drop EACH EYE HS [facility] Last Admin: 04/27/18 20:53 Dose: 1 drop Metoprolol Tartrate (Lopressor) 25 mg PO BID [facility] Last Admin: 04/28/18 09:28 Dose: 25 mg Miscellaneous (Pill Splitter) 1 each OTHER UNSCH PRN PRN Reason: PILL SPLITTING Morphine Sulfate (Morphine Inj) 2 mg IV.PUSH Q4H PRN PRN Reason: PAIN 6-10 Multivitamins/Minerals (Theragran-M) 1 tab PO DAILY [facility] Last Admin: 04/28/18 09:27 Dose: 1 tab Nitroglycerin (Nitro-Bid 2% Oint) 0.5 inch TOPICAL Q6HR PRN PRN Reason: CHEST PAIN Ondansetron HCl (Zofran Inj) 4 mg IV.PUSH Q6H PRN PRN Reason: NAUSEA OR VOMITING Pantoprazole Sodium (Protonix) 40 mg PO DAILY@06 [facility] Last Admin: 04/28/18 06:33 Dose: 40 mg Polyethylene Glycol (Miralax) 17 gm PO DAILY [facility] Last Admin: 04/28/18 09:29 Dose: Not Given Potassium Chloride (K-Dur) 20 meq PO UNSCH PRN PRN Reason: SEE LABEL COMMENTS Potassium Chloride (K-Dur) 40 meq PO UNSCH PRN PRN Reason: SEE LABEL COMMENTS Senna/Docusate Sodium (Shala-Colace) 1 tab PO BID [facility] Last Admin: 04/28/18 09:29 Dose: Not Given Sennosides (Senokot) 17.2 mg PO Q12H PRN PRN Reason: Moderate Constipation Sodium Bicarbonate (Sodium Bicarbonate 8.4% Inj) 50 meq IV.PUSH UNSCH PRN PRN Reason: SEE LABEL COMMENTS Last Admin: 04/23/18 19:40 Dose: 50 meq Sodium Bicarbonate (Sodium Bicarbonate 8.4% Inj) 100 meq IV.PUSH UNSCH PRN PRN Reason: SEE LABEL COMMENTS Sodium Biphosphate/Sodium Phosphate (Fleets Enema (Adult)) 118 ml RECTAL UNSCH PRN PRN Reason: SEE LABEL COMMENTS Sodium Chloride (Ns Flush) 2 ml IV.FLUSH BID [facility] Last Admin: 04/28/18 09:32 Dose: 2 ml Sodium Chloride (Ns Flush) 2 ml IV.FLUSH PRN PRN PRN Reason: FLUSH AFTER USING IV ACCESS Tamsulosin HCl (Flomax) 0.4 mg PO DAILY [facility] Last Admin: 04/28/18 09:27 Dose: 0.4 mg Terbutaline Sulfate (Brethine Inj) 1 mg SQ ONCE PRN PRN Reason: Extravasation Timolol Maleate (Timoptic 0.5% Drops) 1 drops EACH EYE [facility] Last Admin: 04/27/18 20:53 Dose: 1 drops Allergies Allergy/AdvReac Type Severity Reaction Status Date / Time codeine Allergy Intermediate RASH Verified 04/23/18 19:59 Home Medications Medication Instructions Recorded Confirmed Type allopurinol 200 mg PO DAILY 04/20/18 04/20/18 History finasteride 5 mg PO DAILY 04/20/18 04/20/18 History timolol-latanoprost(PF) 1 drop OPHTHALMIC (EYE) HS 04/20/18 04/20/18 History Physical Exam Vital Signs - 24 hr 04/27/18 15:00 04/27/18 16:00 04/27/18 17:00 Temperature 98.0 F Pulse Rate 82 82 90 Respiratory Rate 18 Blood Pressure 131/74 Pulse Oximetry 93 L 04/27/18 18:00 04/27/18 19:00 04/27/18 20:00 Temperature 98.5 F Pulse Rate 88 100 H 102 H Respiratory Rate 16 Blood Pressure 134/66 Pulse Oximetry 95 04/27/18 20:06 04/27/18 21:00 04/27/18 22:00 Temperature Pulse Rate 98 H 84 Respiratory Rate Blood Pressure Pulse Oximetry 95 04/27/18 23:00 04/28/18 00:00 04/28/18 01:00 Temperature 98.2 F Pulse Rate 80 76 78 Respiratory Rate 16 Blood Pressure 104/67 Pulse Oximetry 93 L 04/28/18 02:00 04/28/18 03:00 04/28/18 04:00 Temperature 97.2 F L Pulse Rate 78 75 81 Respiratory Rate 16 Blood Pressure 115/62 Pulse Oximetry 93 L 04/28/18 05:00 04/28/18 06:00 04/28/18 07:12 Temperature Pulse Rate 83 80 88 Respiratory Rate Blood Pressure Pulse Oximetry 04/28/18 08:01 04/28/18 09:36 04/28/18 10:44 Temperature 97 F L Pulse Rate 88 106 H 92 H Respiratory Rate 16 Blood Pressure 128/76 Pulse Oximetry 95 04/28/18 11:34 04/28/18 12:00 04/28/18 12:38 Temperature Pulse Rate 80 75 Respiratory Rate 16 Blood Pressure Pulse Oximetry 04/28/18 13:04 04/28/18 13:16 04/28/18 14:26 Temperature 97.6 F Pulse Rate 82 92 H 97 H Respiratory Rate 18 Blood Pressure 132/72 Pulse Oximetry Physical Exam: GENERAL: This is a well-nourished, well-developed patient, in no apparent distress. SKIN: No rashes, ecchymoses or lesions. Cool and dry. HEAD: Atraumatic. Normocephalic. NECK: Trachea midline. No JVD or lymphadenopathy. Supple, nontender, no meningeal signs. CARDIOVASCULAR: Regular rate and rhythm without murmurs, gallops, or rubs. RESPIRATORY: Clear to auscultation. Breath sounds equal bilaterally. No wheezes , rales, or rhonchi. GASTROINTESTINAL: Abdomen soft, non-tender, nondistended. . GENITOURINARY: No CVAT MUSCULOSKELETAL: Extremities without clubbing, cyanosis, or edema. NEUROLOGICAL: Awake and alert. Laboratory Results - last 24 hr 04/27/18 04/27/18 04/28/18 17:03 20:45 04:26 Sodium 137 Potassium 3.7 Chloride 104 Carbon Dioxide 25.4 Anion Gap 8 BUN 28 H Creatinine 1.35 H Estimated GFR 51 L POC Glucose 118 H 141 H Random Glucose 108 H Calcium 8.1 L Magnesium 2.2 04/28/18 04/28/18 07:52 11:43 Sodium Potassium Chloride Carbon Dioxide Anion Gap BUN Creatinine Estimated GFR POC Glucose 109 165 H Random Glucose Calcium Magnesium Result Diagrams: 04/25/18 04:50 04/28/18 04:26 Imaging: ITS Impressions Carotid Doppler Study 04/21/18 13:10 CONCLUSION: 1. Right Internal Carotid Artery: Findings indicate <50% stenosis. 2. Left Internal Carotid Artery: Findings indicate <50% stenosis. Lower Extremity Ultrasound 04/21/18 13:10 CONCLUSION: 1. Venous mapping study as described. Venous Doppler Study 04/21/18 13:10 CONCLUSION: 1. The study is negative for bilateral lower extremity deep venous thrombosis. Chest X-Ray 04/25/18 00:00 CONCLUSION: There is no significant failure Minimally increasing parenchymal changes left base probably atelectasis. Assessment and Plan - Plan 78y.o m with hx as per HPI - Continue Flomax and Proscar - No acute intervention needed - Evaluate for post/op retention by doing bladder scan after voiding If he retains more then 200-250cc needs a Prieto catheter placement and discharge with it. He can also start taking flomax BID at that point. He will need to see a [place] urologist in 3-5days after d/c for voiding trial - If no retention continue current BPH meds and see as needed, he may need to do it in [place] Discussed Condition With: Dr Myers and Pt's RN
--- NOTE | 2018-04-28 14:59 | P.DIET ---
Nutritional Evaluation Type of nutrition evaluation: follow-up Screening comments: [facility] s/p CABG x 4 on 04/23 received. Patient Navigator to provide education. Consult RD if complexities with diet education arise. 04/[address] because pt has questions on healthy cardiac diet Assessment Assessment: Pt had specific diet questions he and his wanted answers for. Pt requested for a list of foods that are heart healthy, pts wrote down foods that were mentioned in the conversation. RD provided nutritional education materials regarding the DASH diet, healthy ways to restock the kitchen, and reading food labels. Pt said he would try his best to follow the healthy cardiac diet and was positive through the education. Consult RD if any other questions arise. Recommendations: Consult RD if any other questions arise
[2018-04-28] MEDS: Timolol 0.5% Drops 5 ML Bottle EACH EYE SCH (21:23)
[2018-04-28] MEDS: Latanoprost 0.005% Opth Drops 2.5 ML Bottle EACH EYE SCH (21:23)
[2018-04-29] MEDS: Insulin NovoLOG Aspart Correctional Sugar Inj SQ SCH (08:08)
[2018-04-29] MEDS: Polyethylene Glycol 3350 17 GM Packet PO SCH (08:48)
[2018-04-29] MEDS: Docusate Sodium 100 MG Capsule PO SCH (08:49)
[2018-04-29] MEDS: amLODIPine 10 MG Tablet PO SCH (08:49)
[2018-04-29] MEDS: Senna/Docusate Sodium 8.6/50 MG Tablet PO SCH (08:49)
[2018-04-29] MEDS: Finasteride 5 MG Tablet PO SCH (08:49)
[2018-04-29] MEDS: Amiodarone 200 MG Tablet PO SCH (08:50)
[2018-04-29] MEDS: Multivitamin/Minerals Therapeutic Tablet PO SCH (08:50)
[2018-04-29] MEDS: Metoprolol Tartrate 25 MG Tablet PO SCH (08:51)
--- NOTE | 2018-04-29 09:32 | P.DCO ---
- Diagnosis (1) NSTEMI (non-ST elevated myocardial infarction) Status: Acute (2) Dehydration Status: Acute (3) History of nephrectomy Status: Acute (4) CAD (coronary artery disease), [place] coronary artery Status: Acute (5) S/P CABG x 3 Status: Acute - Home Health Nursing Order: Medical education, Signs/symptoms of disease process, Wound care and dressing changes, Nursing assessment with vital signs Instructions: Heart and Vascular Surgery patients *Special attention to sternal dressing Mandatory frequency Assess and evaluation, 4 days in a row The next week 3X week 2 times a week for 4 weeks 1 time a week for 5 weeks Schedule Heart and Vascular patients for full 60 day certification period Initial visit Review Open Heart Surgery Discharge Instructions (Sternal precautions, Activity, Elastic hose, Incision care, Driving, Incentive spirometry, Smoking, [place], Work and other) Need Betadine to paint incision Medication reconciliation Importance of follow up care/ check on appointments Make calendar record temperature daily When to call [facility] at Home nurse, review instructions, phone list Incentive Spirometry, demonstration Visit 1- Begin discharge instruction for patient family and/ or caregiver using teach back method- Signs and symptoms of infection Disease characteristics Medicines and side effects Foods and nutrition/ appetite Infection control/ hand washing/ hygiene Visit 2- Continue teaching Discharge instructions- include additional information on smoking cessation , sternal dressing (sternal vac) Visit 3- Continue teaching- Cough and deep breathing, incision monitoring. Choose my plate Visit 4- Continue teaching- Discuss limitations Discuss how they are feeling Discuss progress toward goals Remaining visits- continue teaching and monitoring For any questions please call : Saturday 8am-5pm Heart & Vascular Surgery Office ( Dr. Arias & Dr. Trotter), After Hours / Nights (5pm -8am) Weekends and Holidays Please call [facility] Cardiac Intermediate Care Unit (CIC) Charge Nurse PREVENA Single Use Negative Wound Therapy System Caregiver Instruction Sheet 1. A Prevena dressing system was applied to the chest incision during surgery , to promote wound healing. It works via a suction device (negative pressure wound therapy) to remove low to moderate levels of exudate (drainage) and infectious materials. We recommend that the device stay in place for up to seven days, from day of surgery. 2. Day of Surgery__/04/29 Day of Removal ____04/30/18 3. The dressing should only be removed by a health hospice patient care secretary. Please arrange removal of device to coincide with Home Health visit and or with Nursing staff at Rehab 4. If skin reddening or irritation of skin occurs, or excessive drainage, please notify the Cardiovascular Surgeons office at [phone]. 5. Light showering is permissible; however the pump should be disconnected and placed in safe location, where it will not get wet. The dressing should not be exposed to direct spray or submerged in water. No bath tub / shower only. Ensure the end of the tubing attached to the dressing is facing down so that water does not enter the top of the tube. 6. To remove Prevena dressing: press purple button to turn off device / remove the suction. Then disconnect the tubing from the pump. The fixation strips should be stretched away from the skin and the dressing lifted at one corner and peeled back until it has been fully removed. 7. After removal, it is ok to shower daily using liquid dial soap and clean wash cloth, rinse and pat dry, and leave incision open to air dry. For any concerns regarding Prevena dressing, and or wounds, please contact Matilde San, patient navigator at [phone] or notify the Cardiovascular Surgeons office at [phone]. Incentive spirometry Q1 hr x 10, while awake, also use acapella device hourly whole awake Sternal Breast Bone Precautions: NO pushing or pulling, ( pt must use sternal pillow to support chest with all activities and with coughing ( takes up to 3 months breast bone to heal ) Daily incision care: ok to shower daily, no tub bath. Wash all incisions with liquid dial soap, clean wash cloth to each site, rinse and pat dry. Observe for any signs of infection, such as drainage which is dark yellow, gutierrez, green or foul smelling. Immediately report to the surgeon any drainage from the chest incision, or legs, and for any abnormal drainage from the chest tube sites. Notify surgeon if any temp >101.5 degrees F. When specialty dressing removed/ or if you do not have one, continue to shower daily as above, then rinse and pat incision dry and paint with betadine daily x 5 days. Allow steri strips to fall off if you have any. Avoid lotions, creams, salves, oils, etc. for the first month Please see attached forms for additional instructions regarding post Open Heart specialty wound vacuum dressings. LC or Prevena , Dressing to be removed by Nursing staff on ___04/30/18____ F/U appointment: as per DC instructions: PCP in 2 weeks, CV surgeon 2 weeks, Police Officer Booking 3-4 weeks For any questions regarding incisions/ dressing / meds / post op care or above Symptoms, Saturday 8am-5pm Heart & Vascular Surgery Office ( Dr. Arias & Dr. Trotter), After Hours / Nights (5pm -8am) Weekends and Holidays Please call [facility] Cardiac Intermediate Care Unit (CIC) Charge Nurse - Case Management Consult Case Management Consult-Home Health: Yes - Certification I have seen patient Lokesh Gregory on 04/29/18. My clinical findings support the need for the requested home health care services because: Deconditioned with increased weakness I certify that my clinical findings support that this patient is homebound because: Post-op weakness
--- NOTE | 2018-04-29 09:45 | P.DS ---
Date of admission: 04/20/18 03:07 Primary care physician: No Primary Care Physician Attending physician on discharge: Dana Arias Anticipated date of discharge: 04/29/18 Brief History from admission: A 78-year-old male who resides here in [place] for the humphrey. He is originally from [facility]. He arrived on 03/27/2018, scheduled to go back August 25. He is renting a nearby condo with his . He is a very active gentleman who works out daily and plays tennis 3 times a week. He woke up on Saturday night with some sharp midsternal chest pain, which radiated down both arms ;became diaphoretic. Got up for a little bit and then tried to go back to bed and half an hour later the pain was intensified so they called 911 after reaching out to their insurance company. He was brought into the emergency department. Troponin peaked at 0.67 and was ruled in for a non-STEMI. He underwent a cardiac catheterization today, which showed mid distal LAD 90% stenosis, the diagonal was 90% stenosed. There was 90% stenosed, the OM 90%, the RCA 75%. He had an echocardiogram, which showed some mild left ventricular hypertrophy, some mild grade 1 diastolic dysfunction, ejection fraction 60%. No valvular disease. We were consulted to evaluate for coronary artery bypass grafting. PAST MEDICAL HISTORY: Includes benign prostatic hypertrophy, gout. He had history of kidney cancer. Right nephrectomy Patient update on day of discharge: pt on room air , had previous difficulty voiding , required straight cath now able to void without difficulty remains in NSR , continue amiodarone x 14 days on BB , ASA and [facility] DS: Diagnosis - Discharge Diagnosis (1) NSTEMI (non-ST elevated myocardial infarction) Status: Acute (2) Dehydration Status: Acute (3) History of nephrectomy Status: Acute (4) CAD (coronary artery disease), [place] coronary artery Status: Acute (5) S/P CABG x 3 Status: Acute DS: Medications - Discharge Medications Prescriptions: amiodarone 200 mg PO Q12HR 14 Days tab amlodipine [Norvasc] 10 mg PO DAILY 30 Days #30 tab aspirin 81 mg PO DAILY 90 Days #90 tab atorvastatin 40 mg PO HS 90 Days #90 tab clopidogrel [Plavix] 75 mg PO DAILY 90 Days #90 tab docusate sodium [DOK] 100 mg PO BID 14 Days #28 cap hydrocodone-acetaminophen 1 tab PO Q3H PRN #40 tab PRN Reason: Pain Scale 1 To 5 metoprolol tartrate 25 mg PO BID 90 Days #180 tab tamsulosin 0.4 mg PO DAILY 30 Days #30 cap DS: Summary Hospital Course: 04/22 carotid US : unremarkable leg vein mapping : ok no chest pain had short pause early am, second degree HB / NO BB preop scheduled for surgery in am 04/23 SURGICAL PROCEDURE 1. Urgent Off-pump Coronary Artery Bypass Grafting x 3 with Left Internal Mammary Artery (WARNER) to Left Anterior Descending (LAD), reverse saphenous vein graft to obtuse Marginal branch of the left Circumflex artery, reverse saphenous vein graft to the distal right Coronary artery 2. Left leg Endoscopic Vein Bovina 3. Intraoperative Vein Mapping. 04/24 Clinically and hemodynamically stable Extubated and tolerating well Maintain chest tube to drainage Transferred to see PCU Allergic to aspirin. Will trial Plavix 04/25 Doing well Maintain chest tube drainage Increase beta-gianna Monitor creatinine Ambulate and PT 04/26 Hemodynamically stable and doing well Remove chest tube today Creatinine at baseline Increase beta-gianna 04/27 Doing well In normal sinus rhythm We will convert IV amiodarone to p.o. Discharge planning 04/28 Doing well Still having some issues with frequent urination of small amounts. We will have urology evaluate Plan discharge in a.m. with home health care. 04/29 seen by urology no further difficulty voiding, will see his Urologist in [place] when he gets home - Time Spent with Patient Total time spent providing and/or coordinating discharge services: Greater than 30 minutes - Quality: VTE Deep Vein Thrombosis/Pulmonary Embolism Present on Admission: No Exam Vital signs: Vital Signs 04/28/18 10:44 04/28/18 11:34 04/28/18 12:00 Temperature Pulse Rate 92 H 80 75 Respiratory Rate Blood Pressure Pulse Oximetry 04/28/18 12:38 04/28/18 13:04 04/28/18 13:16 Temperature 97.6 F Pulse Rate 82 92 H Respiratory Rate 16 18 Blood Pressure 132/72 Pulse Oximetry 04/28/18 14:26 04/28/18 15:03 04/28/18 16:15 Temperature 97.6 F Pulse Rate 97 H 94 H 96 H Respiratory Rate 16 Blood Pressure 123/58 L Pulse Oximetry 04/28/18 17:23 04/28/18 18:12 04/28/18 19:00 Temperature Pulse Rate 93 H 96 H 95 H Respiratory Rate Blood Pressure Pulse Oximetry 04/28/18 20:00 04/28/18 21:00 04/28/18 22:00 Temperature 97 F L Pulse Rate 96 H 96 H 88 Respiratory Rate 18 Blood Pressure 123/68 Pulse Oximetry 96 04/28/18 23:00 04/29/18 00:00 04/29/18 01:00 Temperature 99 F Pulse Rate 80 78 74 Respiratory Rate 16 Blood Pressure 131/69 Pulse Oximetry 95 04/29/18 02:00 04/29/18 03:00 04/29/18 04:00 Temperature 97.2 F L Pulse Rate 71 75 71 Respiratory Rate 16 Blood Pressure 133/70 Pulse Oximetry 92 L 04/29/18 05:00 04/29/18 06:00 04/29/18 07:00 Temperature Pulse Rate 81 81 81 Respiratory Rate Blood Pressure Pulse Oximetry 04/29/18 07:32 04/29/18 09:21 Temperature 97.5 F L Pulse Rate 83 Respiratory Rate 16 Blood Pressure 121/63 Pulse Oximetry 94 L 94 L Intake & Output 04/28/18 04/29/18 04/29/18 18:59 06:59 18:59 Intake Total 720 / 720 240 / 240 Output Total 350 / 350 650 / 650 Balance 370 / 370 -410 / -410 Weight 77.5 kg Intake: Oral 720 / 720 240 / 240 Output: Urine 350 / 350 650 / 650 Other: # Voids 4 Date of Last Bowel Movement 04/28/18 04/28/18 04/28/18 # Bowel Movements 1 - Constitutional no acute distress - Routine HEENT Exam Head: Present: normocephalic Eye: Present: EOMI, PERRL, normal accommodation - Routine Neck Exam Present: supple, full ROM - Routine Chest/Breast/Axilla Exam Chest wall: Present: tenderness - Routine Respiratory Exam Present: CTA bilaterally - Routine Cardiovascular Exam Present: RRR, S1, S2 - Routine Abdominal Exam Present: soft, normoactive bowel sounds - Routine Extremities Exam Present: full ROM, pulses intact, normal capillary refill - Routine Skin Exam Present: intact, wounds Comments: prevena dressing to chest, left leg incision intact and well approximated - Routine Neurological Exam Present: alert, oriented X3, CN II-XII intact Results Procedures completed during hospitalization: 04/21- cardiac cath Date of procedure: 04/23/18 Anesthesia: GETA Surgeon: Dana Arias MD Operation and Findings: PREPROCEDURE DIAGNOSES 1. Severe Multi Vessel Coronary Artery Disease. 2. Acute Myocardial Infarction (NSTEMI) 3. Paroxysmal Heart Block POSTPROCEDURE DIAGNOSES Same SURGICAL PROCEDURE 1. Urgent Off-pump Coronary Artery Bypass Grafting x 3 with Left Internal Mammary Artery (WARNER) to Left Anterior Descending (LAD), reverse saphenous vein graft to obtuse Marginal branch of the left Circumflex artery, reverse saphenous vein graft to the distal right Coronary artery 2. Left leg Endoscopic Vein Bovina 3. Intraoperative Vein Mapping. Completed studies during hospitalization: CARDIOLOGY REPORT - Continued Ordered By: Harris ELIZONDO MR#: [id number] : 1940 Attended By: Ced Mcfadden MD Loc: [facility] Age: 78 Copy To: NO PRIMARY CARE PHYSICIAN Pt Name: Lokesh Gregory Bed: 509-P Order #: [id number] Page 3 of 3 Signed Report #:[id number] Provider [facility] [address] [place] [address] Ordered By: Harris ELIZONDO MR#: [id number] : 1940 Attended By: Ced Mcfadden MD Loc: [facility] Age: 78 Copy To: NO PRIMARY CARE PHYSICIAN Bed: 509-P Order #: [id number] Page 1 of 3 Signed Report #:[id number] Provider Lokesh Gregory Echo 2D Comp with doppler 04/21/18 Indication: CONCLUSIONS Normal left ventricular size. Mild concentric left ventricular hypertrophy. Doppler parameters are consistent with impaired left ventricular relaxtion ( grade 1 diastolic dysfunction). There is mild tricuspid valve regurgitation. The estimated pulmonary arterial pressure is 26.6 mmHg. BP: / HR: Rhythm: MEASUREMENTS (Male / Female) Normal Values Technical Quality: 2D ECHO LV Diastolic Diameter PLAX 4.2 cm 4.2 - 5.9 / 3.9 - 5.3 cm LV Systolic Diameter PLAX 3.1 cm IVS Diastolic Thickness 1.2 cm 0.6 - 1.0 / 0.6 - 0.9 cm LVPW Diastolic Thickness 1.1 cm 0.6 - 1.0 / 0.6 - 0.9 cm LV Relative Wall Thickness 0.5 RV Internal Dim ED PLAX 1.8 cm LVOT Diameter 1.7 cm Aortic Root Diameter 3.0 cm LA Systolic Diameter LX 3.0 cm 3.0 - 4.0 / 2.7 - 3.8 cm LV Ejection Fraction MOD 4C 65.7 % LV Ejection Fraction 4C AL 66.7 % M-MODE Aortic Root Diameter MM 3.0 cm LA Systolic Diameter MM 3.5 cm LA Ao Ratio MM 1.2 AV Cusp Separation MM 1.6 cm DOPPLER AV Peak Velocity 97.0 cm/s AV Peak Gradient 3.8 mmHg LVOT Peak Velocity 80.9 cm/s LVOT Peak Gradient 2.6 mmHg AV Area Cont Eq pk 1.9 cm Mitral E Point Velocity 62.7 cm/s Mitral A Point Velocity 84.9 cm/s Mitral E to A Ratio 0.7 LV E' Lateral Velocity 4.9 cm/s Mitral E to LV E' Lateral Ratio 12.9 LV E' Septal Velocity 7.2 cm/s Mitral E to LV E' Septal Ratio 8.7 TR Peak Velocity 204.0 cm/s TR Peak Gradient 16.6 mmHg Right Atrial Pressure 10.0 mmHg Pulmonary Artery Systolic Pressu 26.6 mmHg Right Ventricular Systolic Press 26.6 mmHg PV Peak Velocity 87.6 cm/s PV Peak Gradient 3.1 mmHg FINDINGS LEFT VENTRICLE Normal left ventricular size. Mild concentric left ventricular hypertrophy. The left ventricular systolic function is normal with an estimated ejection fraction in the range of 60-65%. Doppler parameters are consistent with impaired left ventricular relaxtion ( grade 1 diastolic dysfunction). RIGHT VENTRICLE Normal right ventricular size and systolic function. LEFT ATRIUM The left atrial size is normal. RIGHT ATRIUM The right atrial size is normal. ATRIAL SEPTUM Normal atrial septal thickness without atrial level shunting by limited color doppler interrogation. AORTA The aortic root and proximal ascending aorta are normal in size on limited imaging. MITRAL VALVE Structurally normal mitral valve. No mitral valve stenosis or regurgitation. AORTIC VALVE Trileaflet aortic valve. No aortic valve stenosis or regurgitation. TRICUSPID VALVE Structurally normal tricuspid valve. There is mild tricuspid valve regurgitation. The estimated pulmonary arterial pressure is 26.6 mmHg. PULMONARY VALVE No pulmonary valve regurgitation or stenosis. VESSELS The inferior vena cava is normal in size. PERICARDIUM No pericardial effusion. Ulises Milner MD, [facility] (Electronically Signed) Final Date:21 April 2018 10:54 RADIOLOGY CONSULTATION REPORT Continued Ordered By: Patient Name: Cristina R Lokesh Marinelli MR#: Loc: [id number] [facility] [address] : Age: 09 1940 78 Order #: [id number] Page 2 of 2 Signed Report #:[id number] Provider [facility] DEPARTMENT OF RADIOLOGY [id number] [place] [id number] [address] [place] [address] RADIOLOGY CONSULTATION REPORT Ordered By: Cristina Orlando MR#: Loc: [id number] [facility] [address] : Age: 09 1940 78 Order #: [id number] Page 1 of 2 Signed Report #:[id number] Provider Lokesh Gregory carotid doppler BI Signed EXAM DATE: 04/21/2018 4:02 PM EST AGE/SEX: 78 years / Male INDICATIONS: PreOp cardiac surgery. CLINICAL DATA: This is the patient's initial encounter. Patient reports that signs and symptoms have been present for 1 day and indicates a pain score of 0/ 10. MEDICAL/SURGICAL HISTORY: . Benign prostatic hyperplasia. GOUT. Kidney cancer. . Nephrectomy. Cataract surgery. Cardiac cath. COMPARISON: No prior exams available for comparison. VELOCITY PARAMETERS: ICA/CCA Ratio: Right 0.8 , Left 1.0 ICA: Right 74 cm/sec, Left 88 cm/sec CCA: Right 94 cm/sec, Left 89 cm/sec ECA: Right 116 cm/sec, Left 146 cm/sec Vertebral: Right 53 cm/sec antegrade, Left 45 cm/sec antegrade FINDINGS: Right Carotid: Minimal noncalcified plaque.The waveforms are within normal limits. Left Carotid: Minimal noncalcified plaque. The waveforms are within normal limits. Other: None. CONCLUSION: 1. Right Internal Carotid Artery: Findings indicate <50% stenosis. 2. Left Internal Carotid Artery: Findings indicate <50% stenosis. Electronically signed by: Abdelrahman Hernandez MD 04/21/2018 4:03 PM EST Labs on day of discharge: Labs from last 24 hours 04/29/18 04/28/18 04/28/18 07:23 21:17 16:10 POC Glucose 118 H 118 H 89 04/28/18 11:43 POC Glucose 165 H - Impressions ITS Impressions Carotid Doppler Study 04/21/18 13:10 CONCLUSION: 1. Right Internal Carotid Artery: Findings indicate <50% stenosis. 2. Left Internal Carotid Artery: Findings indicate <50% stenosis. Lower Extremity Ultrasound 04/21/18 13:10 CONCLUSION: 1. Venous mapping study as described. Venous Doppler Study 04/21/18 13:10 CONCLUSION: 1. The study is negative for bilateral lower extremity deep venous thrombosis. Chest X-Ray 04/25/18 00:00 CONCLUSION: There is no significant failure Minimally increasing parenchymal changes left base probably atelectasis. Discharge Plan - Discharge Disposition Patient Disposition: /Home Health Service - Discharge Condition Condition: Good - Discharge Order Discharge Orders: Discharge Order (Routine); Ordered 04/29/18 Ordered By: Cristina Orlando ED Use Only Admit Order (Routine); Ordered 04/20/18 Ordered By: Angelito Britton - Discharge Details Anticipated Discharge Date: 04/29/18 - Physicians Team Primary Care Provider: Primary Care Physici,No Attending Provider: Dana Arias Other Providers: Ulises Milner MD ; Dnaa Arias MD ; Reese Myers MD
== END 2018-04-29 11:51 | disposition home health service (06) ==
LOC: NEPC 01:25 → NEDA 03:07 → HIMC 04:00 → HCIS 04-21 12:21 → HCPC 04-22 22:01 → HCVI 04-23 18:18 → HCPC 04-24 11:50
PROVIDERS: ADMIT Thoracic Surgery (Cardiothoracic Vascular Surgery); ATTEND Thoracic Surgery (Cardiothoracic Vascular Surgery)